=== PATIENT | male | born 1950 | race African-American/Black ===

== ENCOUNTER 2017-09-02 10:12 | Outpatient (CLI) | payer MEDICARE | END 2017-09-02 10:13 | disposition home or self-care (01) | LOC: BICMRI 10:12 | PROVIDERS: ATTEND Orthopaedic Surgery | DX: M25.511 Pain in right shoulder (principal); S43.401A Unspecified sprain of right shoulder joint, initial encounter; M67.813 Other specified disorders of tendon, right shoulder ==

== ENCOUNTER 2019-10-03 06:37 | Outpatient (CLI) | payer MEDICARE, OTHER ==
[2019-10-03 14:31] LABS: ALT (SGPT) 12 U/L (8-55); AST (SGOT) 23 U/L (5-34); Albumin 4.2 g/dL (3.4-4.8); Alkaline Phosphatase 75 U/L (40-110); Anion Gap 13 mmol/L (10-20); BUN (Urea Nitrogen) 17 mg/dL (8.4-25.7); Bilirubin, Total 0.5 mg/dL (0.2-1.2); Calc. Creatinine Clearance 0 mL/min (70-130); Calcium 9.1 mg/dL (7.8-10.44); Carbon Dioxide 24 mmol/L (23-31); Cardiac Risk 2.3 (Less than 4.5); Chloride 101 mmol/L (98-107); Cholesterol 117 mg/dl (< 200 Desired); Estimated GFR-MDRD 77; Globulin 2.8 g/dL (2.4-3.5); Glucose 92 mg/dL (80-115); HDL Cholesterol 52 mg/dL (>60 Neg Risk); LDL Cholesterol, Calculated 52 mg/dL; Sodium 134 mmol/L (136-145); Triglycerides 66 mg/dL (Less than 150)
[2019-10-03 14:42] LABS: Eosinophils 2 % (0-10); Hemoglobin 14.2 g/dL (14.0-18.0); Lymphocytes 15 % (21-51); MDiff Complete? YES; Mean Corpuscular HGB CONC 32.4 g/dL (32.0-36.0); Mean Corpuscular Hemoglobin 27.4 pg (27.0-31.0); Mean Corpuscular Volume 84.6 fL (78.0-98.0); Mean Platelet Volume 9.5 fL (7.4-10.4); Monocytes 4 % (0-10); Neutrophil 18 % (42-75); Platelet Count 136 thou/uL (130-400); Platelet Morphology Comment Appears Adequate; RBC Distribution Width 14.2 % (11.5-14.5); RBC Morphology Normal; Reactive Lymphocytes 61 % (0-10); Reflex for Review?? NO
[2019-10-04 14:12] LABS: SARS-CoV-2 MS2 Positive; SARS-CoV-2 N Gene Negative; SARS-CoV-2 S Gene Negative; SARS-CoV-2 orf1ab Negative
== END 2019-10-03 06:38 | disposition home or self-care (01) ==
LOC: LABBT 06:37
PROVIDERS: ATTEND Internal Medicine Cardiovascular Disease
DX: Z01.818 Encounter for other preprocedural examination (principal); Z11.59 Encounter for screening for other viral diseases
CPT/HCPCS: 80053; 80061; 85025; 93005; U0003; 87635; 93010

== ENCOUNTER 2019-12-19 08:41 | Outpatient (CLI) | payer MEDICARE ==
--- NOTE | 2019-12-19 10:50 | CT ---
EXAM: CT chest, abdomen, and pelvis with IV contrast: HISTORY: Chronic lymphocytic leukemia of B-cell type. COMPARISON: CT angiogram thorax and CT abdomen and pelvis on 11/11/2016 FINDINGS: CT THORAX: Lungs: Again noted are emphysematous changes within the upper lobes bilaterally greater on the right with prominent bullous emphysematous changes seen. Mild chronic lung changes are also seen with interstitial thickening in the upper lobes. There are dependent groundglass opacities seen likely due to dependent atelectasis. No discrete pulmonary nodule or mass is seen. Linear scarring is again seen in the right middle lobe. Pleura: No pleural effusion. Lymph nodes: Previously noted bilateral axillary lymphadenopathy as well as mediastinal and hilar lym phadenopathy seen on the prior exam has resolved. However, there are now enlarged lymph nodes seen within the left supraclavicular location and at the base the left neck. These lymph nodes are increas ed in number and enlarged. Largest lymph nodes measure 3.1 cm and 2.6 cm in short axis dimensions. There were mildly prominent lymph nodes in this region on the prior exam, but these lymph nodes are n ow enlarged and are greater in number compared to prior exam. Mediastinum: Calcified mediastinal lymph nodes are again seen. Prominent vascular calcifications are seen in the coronary arteries with vascular calcifications in the thoracic aorta. Chest wall: No abnormalities CT ABDOMEN AND PELVIS: Liver: Within normal limits. Gallbladder: Decompressed.\ Pancreas: Calcifications again seen in the region of the head and uncinate processes the pancreas whi ch are nonspecific but likely sequela of prior pancreatitis. Spleen: Within normal limits. Adrenal glands: Within normal limits. Kidneys: Within normal limits. Urinary Bladder: Incompletely distended. Reproductive organs: Within normal limits for patient's age. Bowel: Suggested thickening involving the ascending and proximal transverse colon, this is probably a ttributable to incomplete distention as opposed to actual colonic wall thickening. No adjacent pericolonic inflammatory changes are identified. There is suggested mild thickening of rugal folds wi thin the fundus and proximal body of the stomach. This could be related to incomplete distention. Adenopathy:There is a mild increase in number of aortocaval lymph nodes. There are several enlarged a ortocaval lymph nodes were present on the prior exam which is not present on this study. There is minimal stranding adjacent to the increased number of lymph nodes in a left periaortic location. Mild ly prominent lymph node is seen adjacent to the left adrenal gland and posterior to the splenic vein measuring 1 cm in short axis dimension. There enlarged and increased number of lymph nodes seen in the region of the trent hepatis and gastrohepatic ligament and adjacent to the stomach along are not visualized on this exam. A few scattered nonspecific lymph nodes are seen which are not enlarged by CT size criteria. Peritoneum: No free fluid or fluid collection is seen. No free intraperitoneal gas is identified. Vessels: Atherosclerotic calcifications and plaque in the abdominal aorta and iliac arteries as well as the origins of the mesenteric vessels and renal arteries. Previously noted eccentric thrombus within the infrarenal abdominal aorta has decreased. However, there is decreased enhancement and dens e vascular calcifications involving the right iliac arteries with occlusion of the right common iliac artery. Prominent dense vascular calcifications are also seen in the left iliac arteries. There is luminal narrowing with at least moderate narrowing involving the right common femoral artery proximally, but there is evidence of enhancement within the right external iliac and right common fem oral artery. Left common iliac artery stent is noted. Abdominal wall: No abnormalities seen. Osseous structures: Degenerative changes are seen in the visualized lower cervical spine as well as i nvolving the lower lumbar spine. There is trace grade 1 anterolisthesis of L4 on L5. Mild right convex scoliosis lumbar spine is present. IMPRESSION: 1. Lymphadenopathy at the base of the left neck and in a left supraclavicular location. These lymph n odes are increased in number and also increased in size with adjacent minimal stranding. 2. Resolution of mediastinal and axillary lymphadenopathy with resolution of the multiple enlarged ly mph nodes seen throughout the abdomen and pelvis including improvement in inguinal lymphadenopathy. Nonspecific mild increased number of lymph nodes are seen in an aortocaval region and greater in the left para-aortic location. 3. 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 4. Severe emphysematous changes. 5. Suggested thickening of the rugal folds and which is related to incomplete distention. Gastritis c annot be entirely excluded.
--- NOTE | 2019-12-19 11:20 | CT ---
CT NECK WITH CONTRAST: Date: 12/19/2019 Axial tomograms obtained with multiplanar reconstruction. INDICATION: Chronic lymphocytic leukemia. In remission. Now complains of left neck swelling. No comparison exams of neck. FINDINGS: Parotid glands are prominent, but are symmetric and show symmetric enhancement. Submandibular glands are symmetric. Review of thyroid reveals a low density nodule in the left lobe of the thyroid measuring approximatel y 1.0 cm. Review of the nasopharynx shows mild prominence of the pharyngeal tonsils. Base of tongue and oropharynx show prominence in the region of the lingual tonsils with central low a ttenuation suggesting pathologic enlargement. The palatine tonsils appear relatively symmetric. Hypopharynx and larynx appear unremarkable. Parapharyngeal space and retropharyngeal space unremarkable. Review of carotid space shows atherosclerotic calcification in both carotid bulbs. There is evidence of significant stenosis at the origin of the right internal carotid artery. The degree of stenosis ap pears to approach 50% diameter according to NASCET criteria. Review of lymph node levels show no significant Level I submandibular adenopathy. There is extensive Level II adenopathy in the left neck. There are numerous matted lymph nodes produc ing a large mass of adenopathy measuring up to 7.0 cm AP dimension. This mass is predominantly latera l to the vascular bundle and produces mass effect on the vascular bundle. It is medial to the sternoc leidomastoid muscle. This adenopathy extends inferior to Level III and Level IV with too numerous to count enlarged nodes throughout this region of the left neck. There are several pathologic nodes with central lucency cons istent with central necrosis. These pathologic necrotic nodes measure up to 2.0 cm with at least two seen at the level of the thyroid cartilage. There is a bilobed posterior necrotic node on the left wh ich measures up to 3.0 cm. Numerous enlarged lymph nodes extend into Level IV supraclavicular region. On the right side, nonspecific lymph nodes are seen at Level II. There is a 1.3 cm node at Level II o n the right in the jugulodigastric region, and there are several other IIa and IIb lymph nodes on the right measuring up to 1.0 cm. Nonspecific Level III and Level IV lymph nodes on the right measure up to 1.0 cm. Bone windows show prominent degenerative changes throughout the cervical spine with disc narrowing, h ypertrophic spurring, and posterior spondylosis. The paranasal sinuses are aerated and clear. Lung apices show chronic lung findings without focal mass. IMPRESSION: 1. Extensive pathologic adenopathy in the left neck beginning at Level II and extending inferior thr ough Level III and Level IV regions as described above. There are numerous lymph nodes with central n ecrosis as described above. 2. Nonspecific lymph nodes in the right neck as noted above. Biopsy is recommended to confirm diagnosis. Call was placed to Dr. Murillo at the time of dictation. CODE CR. POS: JESS
[2019-12-19] MEDS ORDERED: Iopamidol-370 76% 500 ML 1 ML ONE ×2 (13:30)
== END 2019-12-19 08:42 | disposition home or self-care (01) ==
LOC: BICCT 08:41
PROVIDERS: ATTEND Internal Medicine Hematology & Oncology
DX: C91.10 Chronic lymphocytic leukemia of B-cell type not having achieved remission (principal); R59.0 Localized enlarged lymph nodes; I74.5 Embolism and thrombosis of iliac artery
CPT/HCPCS: 70491; 71260; 74177

== ENCOUNTER 2020-01-22 15:31 | Observation (INO) | payer MEDICARE ==
--- NOTE | 2020-01-22 16:12 | CT ---
CT Brain WO Con History: Altered mental status Comparison: None. Findings: Abnormal enlargement of the left neck soft tissues as seen on recent neck CT, confluent rosas nopathy. Hypodensity along the left caudate head, anterior limb internal capsule as well as putamen is relatively well-defined and not definitively hyper acute. No acute hemorrhage. No midline shift or mass effect. Low-grade right deep white matter microvascular ischemic change. 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 Calvarium is intact. Calcification is noted along the right globe anterior chamber. Impression: 1. Mild microvascular ischemic changes with well-defined hypodensity of the left caudate body and put amen. If there is concern for acute infarction, MRI would be recommended although this is favored to be chronic. 2. Abnormal calcification of the right globe anterior chamber for which ophthalmologic evaluation is recommended. 3. Confluent left neck adenopathy.
--- NOTE | 2020-01-22 16:20 | RAD ---
XR Chest 1 View Portable History: Altered mental status Comparison: Radiograph 2017 Findings: The lungs are without confluent airspace consolidation, pneumothorax or effusion. Heart siz e is similar. No acute osseous abnormality. Abnormal fullness of the left neck soft tissues. Impression: No acute intrathoracic abnormality.
[2020-01-22 16:39] LABS: Hemoglobin 14.1 g/dL (14.0-18.0); Mean Corpuscular HGB CONC 34.7 g/dL (32.0-36.0); Mean Corpuscular Hemoglobin 29.5 pg (27.0-31.0); Mean Corpuscular Volume 85.1 fL (78.0-98.0); Mean Platelet Volume 8.7 fL (7.4-10.4); Platelet Count 169 thou/uL (130-400); RBC Distribution Width 12.9 % (11.5-14.5); Red Blood Cell (RBC) Count 4.78 mill/uL (4.70-6.10); White Blood Cell (WBC) Count 8.9 thou/uL (4.8-10.8)
[2020-01-22 16:58] LABS: Band 6 % (5-11); Eosinophils 3 % (0-10); Lymphocytes 11 % (21-51); MDiff Complete? YES; Monocytes 15 % (0-10); Neutrophil 55 % (42-75); Platelet Morphology Comment Appears Adequate; RBC Morphology Normal; Reactive Lymphocytes 10 % (0-10)
[2020-01-22 17:02] LABS: ALT (SGPT) 10 U/L (8-55); AST (SGOT) 17 U/L (5-34); Albumin 4.1 g/dL (3.4-4.8); Alkaline Phosphatase 122 U/L (40-110); Anion Gap 15 mmol/L (10-20); BUN (Urea Nitrogen) 11 mg/dL (8.4-25.7); Bilirubin, Total 0.9 mg/dL (0.2-1.2); Calc. Creatinine Clearance 0 mL/min (70-130); Calcium 9.3 mg/dL (7.8-10.44); Carbon Dioxide 23 mmol/L (23-31); Chloride 98 mmol/L (98-107); Estimated GFR-MDRD Greater than 90; Glucose 104 mg/dL (83-110); Protein, Total 7.1 g/dL (5.8-8.1); Sodium 132 mmol/L (136-145)
[2020-01-22] MEDS ORDERED: HYDROcodone/Acetaminophen 5/325 mg Tablet ONE (17:56)
[2020-01-22] MEDS ORDERED: Labetalol HCl 100 MG/20 ML VIAL ONE (18:59)
[2020-01-22] MEDS ORDERED: Fluorescein Opthalmic Strip ONE (19:04)
[2020-01-22] MEDS ORDERED: Proparacaine 0.5% Opth 15 ML BOT ONE (19:08)
[2020-01-22] MEDS ORDERED: Labetalol HCl 100 MG/20 ML VIAL SLOW IVP PRN (20:24)
[2020-01-22] MEDS ORDERED: methylPREDNISolone Sod Succ 40 MG VIAL IVP SCH (20:30)
[2020-01-22] MEDS ORDERED: methylPREDNISolone Sod Succ 1,000 MG in Sodium Chloride 0.9% 250 ML 250 ML IVPB SCH (20:45)
[2020-01-22] MEDS ORDERED: Atorvastatin Calcium 40 MG TAB PO SCH (21:00)
--- NOTE | 2020-01-22 21:59 | PDOC.HHP ---
Hospitalist HPI - History of Present Illness Blurry vision History of Present Illness: Mr. 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 Patient reports that approximately 3 days prior to admission he developed left eye pain and approximately an hour later noticed blurry vision and sensitivity to light. Patient was waiting to see if his vision improved, but it has stayed the same over the past 3 days. His pain is associated with a headache over the left temporal region which he describes as 9 out of 10. He al so reports significant tearing to his left eye, denies any purulent drainage. He denies any history of glaucoma or other eye problems in the left eye. He denies any nausea, vomiting. He denies any posterior neck pain. He denies fever, night sweats, chills. He reports that he recently had a lymph node biopsy of his large left neck mass and was told he has lymphoma. He has not yet started chemotherapy but has plans to. He denies any chest pain, shortness of breath, abdominal pain. Denies any numbness, weakness, paresthesias. In emergency room initial vital signs 209/95, 126, 72, 25, 98.0, 99% on room air. H/H 14.1/40.7. BUN/CR 11/0.88. Initial troponin 0 0.013. EKG with no ischemic changes. CT brain showed a hypodensity along the left caudate have an anterior limb internal capsule as well as the 2 men, but no acute hemorrhage, no midline shift, no mass-effect. Also showed abnormal calcification of the right globe anterior chamber and confluent left neck adenopathy. Chest x-ray with no acute intrathoracic abnormality. Patient is allergic to aspirin, so did not receive aspirin in the emergency room. Hospitalist ROS - Review of Systems Constitutional: denies: fever, chills, sweats, weakness, malaise, other Eyes: reports: pain, vision change, conjunctivae inflammation, redness. denies: eyelid inflammation, other ENT: reports: other (Left temporal headache). denies: ear pain, ear discharge, nose pain, nose discharge, nose congestion, mouth pain, mouth swelling, throat pain, throat swelling Respiratory: denies: cough, dry, shortness of breath, hemoptysis, SOB with excertion, pleuritic pain, sputum, wheezing, other Cardiovascular: denies: chest pain, palpitations, orthopnea, paroxysmal noc. dyspnea, edema, light headedness, other Gastrointestinal: denies: nausea, vomiting, abdominal pain, diarrhea, constipation, melena, hematochezia, other Genitourinary: denies: dysuria, frequency, incontinence, hematuria, retention, other Musculoskeletal: denies: neck pain, shoulder pain, arm pain, back pain, hand pain, leg pain, foot pain, other Neurological: denies: weakness, numbness, incoordination, change in speech, confusion, seizures, other - Medication Medications: Home medications include Pantoprazole Plavix Atorvastatin Losartan Allergy to aspirin Hospitalist History - Past Medical History Other Medical History: Past medical history of Hypertension Hyperlipidemia Lymphoma 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 Coronary artery disease status post stents - Past Surgical History Other Surgical History: Past surgical history includes Multiple right eye surgeries Bladder repair Peripheral vascular stents in legs Cardiac stents Neck mass biopsy - Family History Other Family History: Denies any pertinent family history - Social History Smoking Status: Current every day smoker Tobacco Type: cigarettes Alcohol: reports: None Drugs: reports: none Living Situation: Alone Activity level: independent ambulation - Exam General Appearance: NAD, awake alert Eye: anicteric sclera (Multiple attempts with Nelson-Pen, not able to measure IOP.) Eye - other findings: Left eye with conjunctival injection, tearing, EOM intact, PRRL ENT - other findings: Slit-lamp exam with fluorescein stain uptake to conju nctiva Neck - other findings: Large left neck mass Heart: RRR, no murmur, no gallops, no rubs, normal peripheral pulses Respiratory: CTAB, no wheezes, no rales, no ronchi, normal chest expansion, no tachypnea, normal percussion Gastrointestinal: soft, non-tender, non-distended, normal bowel sounds, no palpable masses, no hepatomegaly, no splenomegaly, no bruit Extremities: no cyanosis, no clubbing, no edema Skin: normal turgor, no lesions, no rashes Neurological: cranial nerve grossly intact, normal sensation to touch, no weakness, no focal deficits, no new deficit Musculoskeletal: normal tone, normal strength, no muscle wasting Psychiatric: normal affect, normal behavior, A&O x 3 Hospitalist Results - Labs Result Diagrams: 01/22/20 16:23 01/22/20 16:23 Lab results: WBC 8.9 thou/uL (4.8-10.8) 01/22/20 16:23 Hgb 14.1 g/dL (14.0-18.0) 01/22/20 16:23 Hct 40.7 % (42.0-52.0) L 01/22/20 16:23 MCV 85.1 fL (78.0-98.0) 01/22/20 16:23 Plt Count 169 thou/uL (130-400) 01/22/20 16:23 Band Neuts % (Manual) 6 % (5-11) 01/22/20 16:23 ESR Westergren 28 mm/hr (Less than 20) H 01/22/20 16:23 Sodium 132 mmol/L (136-145) L 01/22/20 16:23 Potassium 4.0 mmol/L (3.5-5.1) 01/22/20 16:23 Chloride 98 mmol/L (98-107) 01/22/20 16:23 Carbon Dioxide 23 mmol/L (23-31) 01/22/20 16:23 BUN 11 mg/dL (8.4-25.7) 01/22/20 16:23 Creatinine 0.88 mg/dL (0.7-1.3) 01/22/20 16:23 Glucose 104 mg/dL (83-110) 01/22/20 16:23 Calcium 9.3 mg/dL (7.8-10.44) 01/22/20 16:23 Total Bilirubin 0.9 mg/dL (0.2-1.2) 01/22/20 16:23 AST 17 U/L (5-34) 01/22/20 16:23 ALT 10 U/L (8-55) 01/22/20 16:23 Alkaline Phosphatase 122 U/L (40-110) H 01/22/20 16:23 Troponin I 0.013 ng/mL (< 0.028) 01/22/20 16:23 C-Reactive Protein Less than 0.50 mg/dL (= or < 0.5) 01/22/20 16:23 Serum Total Protein 7.1 g/dL (5.8-8.1) 01/22/20 16:23 Albumin 4.1 g/dL (3.4-4.8) 01/22/20 16:23 Hospitalist H&P A/P - Plan Plan: 70-year-old male with past medical history of legal parental blindness in right eye secondary to childhood trauma, hypertension, hyperlipidemia, peripheral vascular disease, coronary artery disease with stents, newly diagnosed lymphoma, tobacco dependence presents with 3 days of acute onset pain and vision loss to the left eye associated with left temporal headache. Left eye pain and vision loss 3-day history of significant 8 out of 10 left eye pain and blurred vision associated with left temporal headache. Left eye is injected and inflamed. Fluorescein stain showed scarring of conjunctiva, but no uptake of the cornea. Pupils reactive to light. No obvious visual field cuts from confrontation. No obvious signs of glaucoma. I did attempt to use a Nelson-Pen to measure the p atient's IOP. After several attempts however unable to obtain accurate reading. No obvious abnormalities on funduscopic exam. Differential is broad, but given patient's associated left temporal headache and history of significant peripheral vascular disease and smoking history high suspicion for temporal arteritis. I discussed the case with folder and notcher Dr. Espino who agreed with systemic steroid treatment, and will see the patient urgently in the morning for further evaluation. Dr. Espino recommended holding off on antibiotic drops at this time. CT brain did show a hypodensity in the caudate and putamen, however suspect these are not related to patient's eye pain and vision loss. CT did not show any evidence of orbital cellulitis, but did show known chronic changes to right globe. Plan Urgent ophthalmology consult IV methylprednisolone 1 g for 3 days for suspected temporal arteritis ESR, CRP q4hr neurochecks Hypodensity on CT Scan Hypodensity noted to the caudate nucleus and putamen on CT brain. Suspect these are unrelated to patient's vision loss, however will admit for CVA rule out. Will obtain MRI of the brain. Patient did not state receive aspirin due to an allergy, but is on Plavix which we will continue. We will also continue patient on home statin. As well as place neurology consult. Plan MRI brain Continue plavix, statin Neurology consult q4hr neuro checks Permissive hypertension Hypertensive urgency versus emergency Patient hypertensive to 210 systolic upon admission to the ED. Patient received 10 mg of IV labetalol in the ED. We will continue to monitor blood pressures closely and put as needed medications for elevated BPs. Allowing for permissive hypertension in setting of suspected CVA. Plan As needed labetalol Closely monitor blood pressures We will hold home antihypertensive at this time Lymphoma Patient recently diagnosed with lymphoma by left neck mass biopsy. Patient not currently on chemotherapy but with plans to start. Plan Oncology consult, recommendations appreciated GERD Continue home pantoprazole. DVT prophylaxisLovenox Full code Case discussed with attending physician Dr. Monroe who also saw and evaluated the patient and is in agreement with assessment and plan. Case also discussed with folder and notcher Dr. Snyder who will see the patient urgently in the morning.
[2020-01-23 05:06] LABS: Cardiac Risk 4.1 (Less than 4.5)
[2020-01-23] MEDS ORDERED: Clopidogrel Bisulfate 75 MG TAB ONE (08:51)
[2020-01-23] MEDS ORDERED: Clopidogrel Bisulfate 75 MG TAB PO SCH (09:00)
--- NOTE | 2020-01-23 11:31 | PDOC.HOSPP ---
- Subjective Encounter Date: 01/23/20 Encounter Time: 11:29 Subjective: Mr. Collazo was seen today in follow-up of sudden vision loss in the left eye. He says it is bit better today. He says the pain has improved. - Objective Result Diagrams: 01/22/20 16:23 01/22/20 16:23 Hospitalist ROS - Medication Medications: Active Medications Generic Name Dose Route Start Last Admin Trade Name Freq PRN Reason Stop Dose Admin Atorvastatin Calcium 40 mg 01/22/20 21:00 01/22/20 21:29 Atorvastatin Calcium 40 Mg Tab PO 40 mg HS BERNA Administration Clopidogrel Bisulfate 75 mg 01/23/20 09:00 01/23/20 09:00 Clopidogrel Bisulfate 75 Mg Tab PO 75 mg DAILY BERNA Administration - Exam Eye: PERRL, anicteric sclera Neck - other findings: + massive adenopathy in the left submandibular area Heart: RRR, no murmur, no gallops, no rubs, normal peripheral pulses Respiratory: CTAB, no wheezes, no rales, no ronchi, normal chest expansion Gastrointestinal: soft, non-tender, non-distended, normal bowel sounds Extremities: no cyanosis, no edema Hosp A/P (1) Sudden visual loss, left eye Code(s): H53.132 - SUDDEN VISUAL LOSS, LEFT EYE Status: Acute (2) CML (chronic myelocytic leukemia) Code(s): C92.10 - CHRONIC MYELOID LEUK, BCR/ABL-POSITIVE, NOT ACHIEVE REMIS Status: Chronic (3) Peripheral vascular disease Code(s): I73.9 - PERIPHERAL VASCULAR DISEASE, UNSPECIFIED Status: Chronic - Plan * Sudden vision loss left eye- he seems to be responding to steroids * He has been seen by Dr. Snyder who recommends he come to his office today for more extensive evaluation * Abnormal CT scan of the brain- discussed with Dr. Jc- this is an old Stroke, and not affecting his current complaint. * Will continue aspirin and consider adding a statin * Will follow-up with the MRI, and if no new significant change will discharge this afternoon on Steroids, so that he can see Dr. Snyder.
--- NOTE | 2020-01-23 11:43 | MRI ---
MRI BRAIN NONCONTRAST: DATE: 01/23/2020 HISTORY: 70-year-old male with TIA. Lesion in left basal ganglia on CT of 01/22/2020. COMPARISON: CT of 01/22/2020. No prior MRIs. FINDINGS: There is an approximately 0.7 x 1.6 cm triangular lesion with heterogeneously hyperintense signal on T2 WI and FLAIR, involving a portion of the head of the left caudate nucleus, and adjacent portion of anterior limb of left internal capsule and anterior portion of left basal ganglia, more specifical ly the putamen. It has a small hemosiderin stain, indicating that it was associated with prior hemorrhage. Unfortunately, the study was ordered without contrast (contrast would be necessary if the re is clinical concern for infection or metastasis). However, given its appearance and lack of mass effect, this is favored to represent a focus of gliosis and encephalomalacia from an old insult. There are mild chronic ischemic white matter changes of the cerebrum. There is a second punctate focus of hemosiderin stain in the left frontal deep cerebral white matter located approximately 1 cm anterior to the left frontal horn representing another tiny focus of prior hemorrhage. The ventricles are normal in size and configuration. There is diffuse age-appropriate brain parenchymal volume loss. No restricted diffusion to indicate any acute infarction. No acute hemorrhage, mass effect, midline shift, or extra-axial fluid collection. There is T2 and FLAIR hyperintensity completely filling the left mastoid antrum, and many of the bila teral mastoid air cells, left greater than right. IMPRESSION: 1) no acute infarction or any other acute findings. 2) small lesion in left corpus striatum is most consistent with an old infarction with hemorrhagic co nversion or old primary hemorrhage. 3) incidental finding of left mastoid effusion.
--- NOTE | 2020-01-23 12:44 | CON ---
NEUROLOGY CONSULTATION DATE OF CONSULTATION: 01/23/2020 REASON FOR CONSULTATION: Acute vision loss in the left eye. HISTORY OF PRESENT ILLNESS: Mr. 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 Per patient, approximately 3 days prior to admission, he developed left eye pain, and an hour later, he noticed blurred vision with sensitivity to light. The patient waited at home for the vision to improve, but it did not. It was associated with left temporal headache at 9/10 and significant tearing in the left eye with no discharge. He decided to come to the emergency room for further evaluation. The patient denies any eye problems before. He denies nausea, vomiting, chest pain, abdominal pain, focal numbness, or focal paresthesias associated with the left eye blindness. He had a large lymph node in the left leg, for which he has been followed by the Oncology. In the emergency room, his blood pressure was 209/95, pulse 126, respiratory rate 18. Head CT was done, which showed old hypodensity in the left caudate, but no acute hemorrhage. The patient is allergic to aspirin, so he did not receive aspirin. Ophthalmology was consulted and he was given a dose of high-dose steroid. REVIEW OF SYSTEMS: Constitutional: denies: fever, chills, sweats, weakness, malaise, other Eyes: reports: pain, vision change, conjunctivae inflammation, redness. denies: eyelid inflammation, other ENT: reports: other (Left temporal headache). denies: ear pain, ear discharge, nose pain, nose discharge, nose congestion, mouth pain, mouth swelling, throat pain, throat swelling Respiratory: denies: cough, dry, shortness of breath, hemoptysis, SOB with excertion, pleuritic pain, sputum, wheezing, other Cardiovascular: denies: chest pain, palpitations, orthopnea, paroxysmal noc. dyspnea, edema, light headedness, other Gastrointestinal: denies: nausea, vomiting, abdominal pain, diarrhea, constipation, melena, hematochezia, other Genitourinary: denies: dysuria, frequency, incontinence, hematuria, retention, other Musculoskeletal: denies: neck pain, shoulder pain, arm pain, back pain, hand pain, leg pain, foot pain, other Neurological: denies: weakness, numbness, incoordination, change in speech, confusion, seizures, other HOME MEDICATIONS: 1. Pantoprazole. 2. Plavix. 3. Atorvastatin. 4. Losartan. ALLERGIES: ASPIRIN. PAST MEDICAL HISTORY: Hypertension, hyperlipidemia, lymphoma, legally blind in right eye due to childhood trauma, coronary artery disease status post stents. PAST SURGICAL HISTORY: Multiple right eye surgeries, bladder repair, peripheral vascular stents in the leg, cardiac stents, neck mass biopsy. FAMILY HISTORY: No history of stroke. SOCIAL HISTORY: The patient is a smoker. Denies alcohol or illegal drug abuse. He lives alone. PHYSICAL EXAMINATION: General Appearance: NAD, awake alert Eye: anicteric sclera (Multiple attempts with Nelson-Pen, not able to measure IOP.) Eye - other findings: Left eye with conjunctival injection, tearing, EOM intact, PRRL ENT - other findings: Slit-lamp exam with fluorescein stain uptake to conjunctiva Neck - other findings: Large left neck mass Heart: RRR, no murmur, no gallops, no rubs, normal peripheral pulses Respiratory: CTAB, no wheezes, no rales, no ronchi, normal chest expansion, no tachypnea, normal percussion Gastrointestinal: soft, non-tender, non-distended, normal bowel sounds, no palpable masses, no hepatomegaly, no splenomegaly, no bruit Extremities: no cyanosis, no clubbing, no edema Skin: normal turgor, no lesions, no rashes Neurological: Mental status; the patient is alert and oriented to person, place, and time. Speech is clear. Fund of knowledge is appropriate. Cranial nerves 3 to 12 are intact, 2 OD legally blind and OS 20/50, vision improved since arrival to the emergency room. Motor, muscle tone and bulk are normal. Moving all 4 extremities equally and symmetrically. Strength 5/5 bilaterally. Sensory intact. Cerebellar, finger-nose testing intact. Gait deferred due to the patient's safety reason. DATA REVIEWED: Significant for hyponatremia of 132. Rests are essentially unremarkable. Head CT reviewed, old stroke but no acute intracranial pathology. Lab results: WBC 8.9 thou/uL (4.8-10.8) 01/22/20 16:23 Hgb 14.1 g/dL (14.0-18.0) 01/22/20 16:23 Hct 40.7 % (42.0-52.0) L 01/22/20 16:23 MCV 85.1 fL (78.0-98.0) 01/22/20 16:23 Plt Count 169 thou/uL (130-400) 01/22/20 16:23 Band Neuts % (Manual) 6 % (5-11) 01/22/20 16:23 ESR Westergren 28 mm/hr (Less than 20) H 01/22/20 16:23 Sodium 132 mmol/L (136-145) L 01/22/20 16:23 Potassium 4.0 mmol/L (3.5-5.1) 01/22/20 16:23 Chloride 98 mmol/L (98-107) 01/22/20 16:23 Carbon Dioxide 23 mmol/L (23-31) 01/22/20 16:23 BUN 11 mg/dL (8.4-25.7) 01/22/20 16:23 Creatinine 0.88 mg/dL (0.7-1.3) 01/22/20 16:23 Glucose 104 mg/dL (83-110) 01/22/20 16:23 Calcium 9.3 mg/dL (7.8-10.44) 01/22/20 16:23 Total Bilirubin 0.9 mg/dL (0.2-1.2) 01/22/20 16:23 AST 17 U/L (5-34) 01/22/20 16:23 ALT 10 U/L (8-55) 01/22/20 16:23 Alkaline Phosphatase 122 U/L (40-110) H 01/22/20 16:23 Troponin I 0.013 ng/mL (< 0.028) 01/22/20 16:23 C-Reactive Protein Less than 0.50 mg/dL (= or < 0.5) 01/22/20 16:23 Serum Total Protein 7.1 g/dL (5.8-8.1) 01/22/20 16:23 Albumin 4.1 g/dL (3.4-4.8) 01/22/20 16:23 ASSESSMENT AND PLAN: (1) Sudden visual loss, left eye Code(s): H53.132 - SUDDEN VISUAL LOSS, LEFT EYE Status: Acute (2) CML (chronic myelocytic leukemia) Code(s): C92.10 - CHRONIC MYELOID LEUK, BCR/ABL-POSITIVE, NOT ACHIEVE REMIS Status: Chronic (3) Peripheral vascular disease Code(s): I73.9 - PERIPHERAL VASCULAR DISEASE, UNSPECIFIED Status: Chronic Mr. Chevy Cornejo is a 70-year-old male with medical history significant for right eye blindness, hypertension, hyperlipidemia, peripheral vascular disease, coronary artery disease with stents, and tobacco abuse, presented with 3-day history of acute onset pain and visual loss associated with left temporal headache, concern about left temporal arteritis. Ophthalmology consulted. Continue high-dose steroids per Ophthalmology recommendation. Ophthalmology has been consulted and advised outpatient Ophthalmology followup. The patient will follow up with Dr. Snyder as outpatient. Today, MRI of the brain reviewed, which was negative for acute intracranial pathology. The patient does have old stroke, so continue Plavix and statin for secondary stroke prevention. Continue medical treatment per Primary Team. Strict control of blood pressure and blood glucose. No further recommendations from Neurology perspective. Continue medical management per primary team and Ophthalmology. Plan discussed in detail with Dr. Ratliff, who is the primary attending. Thank you for the consult. Job ID: [id number] [id number]
[2020-01-23 14:04] LABS: SARS-CoV-2 MS2 Positive; SARS-CoV-2 N Gene Negative; SARS-CoV-2 S Gene Negative; SARS-CoV-2 by NAA Not Detected (NotDetected); SARS-CoV-2 orf1ab Negative
[2020-01-23] MEDS ORDERED: methylPREDNISolone Sod Succ/PF 125 MG/2 ML VIAL ONE (14:21)
--- NOTE | 2020-01-23 14:26 | PDOC.MOPN ---
Interval History: patient stopped Ibrance 1 week ago, due to start IV chemo at that time but having issues with insurance. He was given IV steroids with improvement of vision. - Physical Exam General: Alert HEENT: Other (LAD left neck) Lungs: Clear to auscultation, Normal air movement Cardiovascular: Regular rate Abdomen: Normal bowel sounds Neurological: Normal speech - Labs Result Diagrams: 01/22/20 16:23 01/22/20 16:23 Lab results: Laboratory Results - last 24 hr 01/23/20 04:20: Triglycerides 92, Cholesterol 139, LDL Cholesterol, Calc 87, HDL Cholesterol 34, Heart Disease Risk Ratio 4.1 01/22/20 20:45: SARS-CoV-2 (PCR) Not Detected 01/22/20 16:23: ESR Westergren 28 H 01/22/20 16:23: C-Reactive Protein Less than 0.50 01/22/20 16:23: Troponin I 0.013 01/22/20 16:23: WBC 8.9, RBC 4.78, Hgb 14.1, Hct 40.7 L, MCV 85.1, MCH 29.5, MCHC 34.7, RDW 12.9, Plt Count 169, MPV 8.7, Neutrophils % (Manual) 55, Band Neuts % (Manual) 6, Lymphocytes % (Manual) 11 L, Reactive Lymphs % 10, Monocytes % (Manual) 15 H, Eosinophils % (Manual) 3, Lymphocytes # Not Reportable, Plt Morphology Comment Appears Adequate, RBC Morph Comment Normal 01/22/20 16:23: Sodium 132 L, Potassium 4.0, Chloride 98, Carbon Dioxide 23, Anion Gap 15, BUN 11, Creatinine 0.88, Estimated GFR (MDRD) Greater than 90, Glucose 104, Calcium 9.3, Total Bilirubin 0.9, AST 17, ALT 10, Alkaline Phosphatase 122 H, Serum Total Protein 7.1, Albumin 4.1, Globulin 3.0, Albumin/Globulin Ratio 1.4 Status: lab reviewed by me A/P - Problem (1) CLL (chronic lymphocytic leukemia) Current Visit: Yes Code(s): C91.10 - CHRONIC LYMPHOCYTIC LEUK OF B-CELL TYPE NOT ACHIEVE REMIS Status: Acute (2) Sudden visual loss, left eye Current Visit: Yes Code(s): H53.132 - SUDDEN VISUAL LOSS, LEFT EYE Status: Acute - Plan Plan: 1. Patient is being discharged to go to Dr. Espino's office for eye exam. blurred vision left eye may be from Ibrance. 2. Patient missed his mediport consultation and has to be rescheduled prior to initiation of R-CHOP chemotherapy 3. Needs echo prior to starting Adriamycin 4. Await financial assistance with medications as patient is unable to afford his copay. 5. patient will come to office tomorrow to see our briefcase sewer and get new appointment for mediport consultation. 6. Hopefully, IV chemo will start in the next week.
[2020-01-24] MEDS ORDERED: methylPREDNISolone Sod Succ/PF 125 MG/2 ML VIAL IVP ONE (11:39)
--- NOTE | 2020-01-25 03:47 | DIS ---
DATE OF ADMISSION: 01/22/2020 DATE OF DISCHARGE: 01/23/2020 DISCHARGE DISPOSITION: Home. DISCHARGE DIAGNOSES: 1. Sudden loss of vision in the left eye. 2. History of lymphoma. 3. Hypertension. 4. Hyperlipidemia. DISCHARGE MEDICATIONS: The patient was discharged on: 1. Prednisone 60 mg p.o. daily. 2. Aspirin 81 mg daily. 3. Continue Timoptic 0.5% in the left eye. 4. Protonix 40 mg daily. 5. [place] 5/325 q.6h as needed. 6. Atorvastatin 20 mg daily. 7. Imbruvica 140 mg three tablets daily. 8. Losartan 25 mg daily. 9. Plavix 75 mg p.o. daily. PROCEDURES DONE DURING THE HOSPITAL STAY: The patient had a CT scan of the brain, which showed mild microvascular change. There was a well-defined hypodensity in the left caudate and abnormal calcifications of the right globe. MRI of the brain showed age-appropriate volume loss as well as a left mastoid effusion. CONSULTANTS DURING THE HOSPITAL STAY: He was seen by Neurology as well as Ophthalmology. HOSPITAL COURSE: Mr. Cornejo is a pleasant 70-year-old gentleman, who presented to the emergency room with complaints of sudden loss in vision in the left eye. The full details of which are outlined in the history and physical. He also noted some pain in the eye and redness as well and some headache. An attempt at obtaining his ocular pressure in the ER was unsuccessful; however, he was seen by Ophthalmology the following morning. Due to concerns for possible temporal arteritis or other conditions such as uveitis or iritis, he was placed on high-dose steroids. Sedimentation rate was obtained, which was slightly elevated at 28. He was seen by Dr. Snyder and was told to follow up in his office the same day. An urgent MRI of the brain was done, which was negative for any significant change. The neurologist money order clerk also felt that urgent ophthalmology evaluation would be the best course and as such, he was able to be discharged home to follow up with Dr. Snyder, the same day. Job ID: [id number]
== END 2020-01-23 14:35 | disposition home or self-care (01) ==
LOC: ERS 15:31 → ERHOLD 18:11
PROVIDERS: ADMIT Internal Medicine; ATTEND Internal Medicine
DX: H53.132 Sudden visual loss, left eye (principal); C91.10 Chronic lymphocytic leukemia of B-cell type not having achieved remission; I10 Essential (primary) hypertension; E78.5 Hyperlipidemia, unspecified; H74.8X2 Other specified disorders of left middle ear and mastoid; I73.9 Peripheral vascular disease, unspecified; H54.8 Legal blindness, as defined in USA; I25.10 Atherosclerotic heart disease of native coronary artery without angina pectoris; F17.210 Nicotine dependence, cigarettes, uncomplicated; K21.9 Gastro-esophageal reflux disease without esophagitis; Z79.02 Long term (current) use of antithrombotics/antiplatelets; Z79.899 Other long term (current) drug therapy; Z88.6 Allergy status to analgesic agent; Z95.5 Presence of coronary angioplasty implant and graft; Z20.828 Contact with and (suspected) exposure to other viral communicable diseases
CPT/HCPCS: 70450; 70551; 71045; 80053; 80061; 84484; 85025; 85652; 86140; 93005; 96374; 96375; 99284; G0378 ×2; U0003; 36415; 87635; J2930; J7050

== ENCOUNTER 2020-01-27 19:43 | Inpatient (IN) | payer MEDICARE ==
[2020-01-27 21:51] LABS: Hemoglobin 14.7 g/dL (14.0-18.0); Lymphocytes 40 % (21-51); MDiff Complete? YES; Mean Corpuscular Hemoglobin 28.4 pg (27.0-31.0); Mean Corpuscular Volume 85.9 fL (78.0-98.0); Mean Platelet Volume 7.8 fL (7.4-10.4); Monocytes 5 % (0-10); Neutrophil 43 % (42-75); Platelet Count 253 thou/uL (130-400); Platelet Morphology Comment Appears Adequate; RBC Distribution Width 12.9 % (11.5-14.5); Reactive Lymphocytes 12 % (0-10); White Blood Cell (WBC) Count 12.2 thou/uL (4.8-10.8)
[2020-01-27] MEDS ORDERED: diphenhydrAMINE 12.5 MG/5 ML UDCUP ONE (21:51)
[2020-01-27] MEDS ORDERED: Acetaminophen 500 MG TAB ONE (21:51)
[2020-01-27] MEDS ORDERED: Morphine 4 MG/ML VIAL ONE (21:51)
[2020-01-27] MEDS ORDERED: Metoclopramide HCl 10 MG/2 ML VIAL ONE (21:51)
[2020-01-27] MEDS ORDERED: diphenhydrAMINE 25 MG CAP ONE (21:52)
--- NOTE | 2020-01-27 22:03 | CT ---
EXAM: CT brain without contrast HISTORY: Headache. Known neck cancer COMPARISON: 01/22/2020 TECHNIQUE: Multiple contiguous axial images were obtained and a CT of the brain without contrast. FINDINGS: There are scattered hypodensities in the subcortical and periventricular white matter consi stent with small vessel ischemic disease. Intracranial vascular calcifications are present. There is no evidence of hydrocephalus, intracranial hemorrhage, or extra-axial fluid collection. There is a large mass below the left ear. There is stable partial opacification the left mastoid air cells. The visualized paranasal sinuses and right mastoid air cells are well aerated. IMPRESSION: 1. No evidence of acute intracranial abnormality 2. Stable large left neck mass
[2020-01-27 22:11] LABS: ALT (SGPT) 17 U/L (8-55); AST (SGOT) 17 U/L (5-34); Albumin 4.4 g/dL (3.4-4.8); Alkaline Phosphatase 119 U/L (40-110); Anion Gap 16 mmol/L (10-20); BUN (Urea Nitrogen) 14 mg/dL (8.4-25.7); Bilirubin, Total 0.7 mg/dL (0.2-1.2); Calc. Creatinine Clearance 0 mL/min (70-130); Calcium 9.8 mg/dL (7.8-10.44); Carbon Dioxide 26 mmol/L (23-31); Chloride 96 mmol/L (98-107); Estimated GFR-MDRD 83; Globulin 3.5 g/dL (2.4-3.5); Glucose 122 mg/dL (83-110); Protein, Total 7.9 g/dL (5.8-8.1); Sodium 134 mmol/L (136-145)
[2020-01-27] MEDS ORDERED: diphenhydrAMINE 50 MG/ML VIAL ONE (22:43)
[2020-01-27] MEDS ORDERED: Labetalol HCl 100 MG/20 ML VIAL ONE (23:16)
[2020-01-27] MEDS ORDERED: Labetalol HCl 100 MG/20 ML VIAL SLOW IVP PRN (23:38)
[2020-01-28] MEDS ORDERED: Labetalol HCl 100 MG/20 ML VIAL ONE ×2 (00:21→11:49)
--- NOTE | 2020-01-28 00:27 | PDOC.BPN ---
- Brief Progress Note Encounter Date: 01/27/20 [id number] dictated
[2020-01-28 00:53] LABS: Troponin I 0.027 ng/mL (< 0.028)
[2020-01-28] MEDS ORDERED: niCARdipine 25 MG in Sodium Chloride 0.9% 250 ML 240 ML IVPB SCH ×2 (02:15→03:16)
--- NOTE | 2020-01-28 04:10 | HP ---
CHIEF COMPLAINT: Headache. HISTORY OF PRESENT ILLNESS: Mr. Cornejo is a 70-year-old male with past medical history of lymphoma with left neck mass, blindness, GI bleeding. The patient currently on chemotherapy, presents to the emergency room for headache that has been going on for over a week. The patient was discharged 4 days ago from the hospital with the same complaint of left eye vision changes and left-sided headaches. The patient also has left-sided neck pain. The patient had an MRI of the brain and was unremarkable several days ago. The patient was seen by Ophthalmology for the left eye vision changes. The patient has a large left-sided neck mass, for which he is being cared for by Dr. Murillo, oncologist. He has lymphoma. He has chronic hypertension. Workup in the emergency room, the patient was hypertensive with a systolic blood pressure of more than 240. The patient was given IV labetalol. Still monitoring the blood pressure. If blood pressure remains elevated, we will start the patient on IV Cardene drip. Denies fever or chills. The patient is being admitted to hospital for further management. PAST MEDICAL HISTORY: As mentioned above in history of present illness. PAST SURGICAL HISTORY: 1. Right eye surgeries. 2. Ruptured bladder repair. 3. Two stents in the leg. 4. Two stents in the heart. 5. Biopsy of neck mass. SOCIAL HISTORY: Denies alcohol use. He is a former drug user, abuse marijuana. Currently he uses tobacco, smokes cigarettes. He smokes half pack per day. Lives at home alone. HOME MEDICATIONS: Please see home medication reconciliation form for updated medications. ALLERGIES: ALLERGIC TO ASPIRIN. REVIEW OF SYSTEMS: Review of 14 systems negative except what is mentioned in history of present illness. PHYSICAL EXAMINATION: GENERAL: The patient is awake, alert, in moderate distress. VITAL SIGNS: Blood pressure is 198/86, pulse is 77, respiratory rate is 16, oxygen saturation is 95% on room air. HEENT: Head is normocephalic and atraumatic. Right cornea is completely opacified. NECK: Supple. Large neck mass, tender. CHEST: Fair bilateral air entry. HEART: S1, S2. Regular. ABDOMEN: Soft, nontender. Bowel sounds present. NEUROLOGIC: Awake, alert, moving extremities. PSYCH: Unable to assess. EXTREMITIES: No clubbing or cyanosis. LABORATORY DATA: Reviewed. Sodium is 134, glucose is 122. CT of the brain, no evidence of acute intracranial abnormality, stable large left neck mass. CBC showed WBC count of 12.2. ASSESSMENT AND PLAN: 1. Hypertensive emergency. 2. Acute headache, intractable. 3. Large neck mass/lymphoma. 4. On chemotherapy. 5. Blindness. PLAN: 1. Admit. 2. Monitor and control blood pressure, the patient is getting IV labetalol, is not responding. We will start IV Cardene drip and place the patient in IMCU. 3. Reassess patient in a.m. If still having headache, consider Neurology and further neurological workup. 4. Reconcile home medications. 5. DVT prophylaxis as appropriate. 6. Expected length of stay, 2 midnights or more. Job ID: [id number]
[2020-01-28] MEDS ORDERED: Acetaminophen 325 MG TAB ONE (05:33)
[2020-01-28] MEDS: Acetaminophen 325 MG TAB PO PRN ×2 (05:41→20:54)
[2020-01-28] MEDS ORDERED: hydrALAZINE 20 MG/ML VIAL SLOW IVP PRN (09:06)
[2020-01-28] MEDS ORDERED: Losartan 25 MG TAB PO SCH (09:15)
[2020-01-28] MEDS ORDERED: Amlodipine 5 MG TAB PO SCH (09:15)
[2020-01-28] MEDS ORDERED: Amlodipine 5 MG TAB ONE (09:33)
[2020-01-28] MEDS ORDERED: Famotidine 20 MG TAB ONE (09:33)
[2020-01-28] MEDS: Famotidine 20 MG TAB PO SCH ×2 (09:47→20:49)
[2020-01-28 10:17] LABS: Hemoglobin 14.6 g/dL (14.0-18.0); Mean Corpuscular HGB CONC 33.4 g/dL (32.0-36.0); Mean Corpuscular Hemoglobin 28.4 pg (27.0-31.0); Mean Corpuscular Volume 84.9 fL (78.0-98.0); Mean Platelet Volume 7.9 fL (7.4-10.4); Platelet Count 249 thou/uL (130-400); RBC Distribution Width 12.8 % (11.5-14.5); Red Blood Cell (RBC) Count 5.13 mill/uL (4.70-6.10); White Blood Cell (WBC) Count 12.5 thou/uL (4.8-10.8)
[2020-01-28 10:24] LABS: Anion Gap 18 mmol/L (10-20); BUN (Urea Nitrogen) 11 mg/dL (8.4-25.7); Calc. Creatinine Clearance 0 mL/min (70-130); Calcium 9.3 mg/dL (7.8-10.44); Carbon Dioxide 18 mmol/L (23-31); Chloride 98 mmol/L (98-107); Estimated GFR-MDRD Greater than 90; Glucose 103 mg/dL (83-110); Potassium 4.2 mmol/L (3.5-5.1); Sodium 130 mmol/L (136-145)
[2020-01-28 10:30] LABS: Troponin I 0.027 ng/mL (< 0.028)
--- NOTE | 2020-01-28 10:57 | PDOC.HOSPP ---
- Subjective Encounter Date: 01/28/20 Subjective: Headache is improved. He still has some visual issues. He does report that he takes medicines at home. Says he takes 5 different pills daily including losartan. - Objective Vital Signs & Weight: Vital Signs (12 hours) Temp Pulse Resp BP BP Pulse Ox 01/28/20 09:48 64 166/113 H 01/28/20 03:34 97.0 F L 64 14 199/81 H 97 Result Diagrams: 01/28/20 09:52 01/28/20 09:52 Hospitalist ROS - Medication Medications: Active Medications Generic Name Dose Route Start Last Admin Trade Name Freq PRN Reason Stop Dose Admin Acetaminophen 650 mg 01/27/20 23:34 01/28/20 05:41 Acetaminophen 325 Mg Tab PO 650 mg Q4H PRN Administration Headache/Fever/Mild Pain (1-3) Amlodipine Besylate 5 mg 01/28/20 09:15 01/28/20 09:48 Amlodipine 5 Mg Tab PO 01/28/20 11:15 5 mg NOW BERNA Administration Famotidine 20 mg 01/28/20 09:00 01/28/20 09:47 Famotidine 20 Mg Tab PO 20 mg BID BERNA Administration Losartan Potassium 50 mg 01/28/20 09:15 01/28/20 09:58 Losartan 25 Mg Tab PO 01/28/20 11:15 50 mg NOW BERNA Administration - Exam General Appearance: NAD, awake alert Neck - other findings: Large mass on the left neck Heart: RRR, no murmur, no gallops, no rubs, normal peripheral pulses Respiratory: CTAB, no wheezes, no rales, no ronchi, normal chest expansion, no tachypnea, normal percussion Gastrointestinal: soft, non-tender, non-distended, normal bowel sounds, no palpable masses, no hepatomegaly, no splenomegaly, no bruit Extremities: no cyanosis, no clubbing, no edema Skin: normal turgor, no lesions, no rashes Neurological: no focal deficits Musculoskeletal: normal tone Psychiatric: normal affect, normal behavior, A&O x 3 Hosp A/P (1) Hypertensive urgency Code(s): I16.0 - HYPERTENSIVE URGENCY Status: Acute (2) CLL (chronic lymphocytic leukemia) Code(s): C91.10 - CHRONIC LYMPHOCYTIC LEUK OF B-CELL TYPE NOT ACHIEVE REMIS Status: Acute (3) Peripheral vascular disease Code(s): I73.9 - PERIPHERAL VASCULAR DISEASE, UNSPECIFIED Status: Chronic (4) Hyponatremia Code(s): E87.1 - HYPO-OSMOLALITY AND HYPONATREMIA Status: Acute - Plan Hypertensive urgency: Patient's symptoms are improved. His blood pressure has improved with a Cardene drip overnight. Initiating his home losartan at an increased dose of 50 mg. Also giving amlodipine 5 mg. Should his blood pressure remained reasonably stable with that will downgrade to a telemetry bed. Hyponatremia: Slightly lower today. We will continue to monitor as the blood pressure is better controlled and his headache resolved. CLL with large left neck mass: Patient has substantial lymphadenopathy in the left neck creating a significant mass. Previous imaging did not show any compromise of the carotid that might be contributing to his hypertension.
[2020-01-28 11:14] LABS: Lymphocytes 15 % (21-51); MDiff Complete? YES; Monocytes 10 % (0-10); Neutrophil 63 % (42-75); Platelet Morphology Comment Appears Adequate; Reactive Lymphocytes 12 % (0-10)
[2020-01-28 15:45] LABS: SARS-CoV-2 MS2 Positive; SARS-CoV-2 N Gene Negative; SARS-CoV-2 S Gene Negative; SARS-CoV-2 by NAA Not Detected (NotDetected); SARS-CoV-2 orf1ab Negative
[2020-01-28 17:57] VITALS: BMI 23.3
[2020-01-29] MEDS: Acetaminophen 325 MG TAB PO PRN ×2 (07:02→14:01)
--- NOTE | 2020-01-29 08:18 | PDOC.HOSPP ---
- Subjective Encounter Date: 01/29/20 Encounter Time: 11:30 Subjective: Patient with minimal headache. Blood pressure much better. No other complaints. - Objective Vital Signs & Weight: Vital Signs (12 hours) Temp Pulse Resp BP Pulse Ox 01/29/20 03:02 98.3 F 92 18 147/75 H 100 01/28/20 20:50 160/81 H Weight Weight 158 lb I&O: 01/28/20 01/29/20 01/30/20 06:59 06:59 06:59 Intake Total 240 Output Total 375 Balance -135 Result Diagrams: 01/28/20 09:52 01/28/20 09:52 Hospitalist ROS - Review of Systems Constitutional: denies: fever, chills Respiratory: denies: cough, shortness of breath Cardiovascular: denies: chest pain, palpitations Gastrointestinal: denies: nausea, vomiting, abdominal pain - Medication Medications: Active Medications Generic Name Dose Route Start Last Admin Trade Name Freq PRN Reason Stop Dose Admin Acetaminophen 650 mg 01/27/20 23:34 01/29/20 07:02 Acetaminophen 325 Mg Tab PO 650 mg Q4H PRN Administration Headache/Fever/Mild Pain (1-3) Famotidine 20 mg 01/28/20 09:00 01/28/20 20:49 Famotidine 20 Mg Tab PO 20 mg BID BERNA Administration Hydralazine HCl 10 mg 01/28/20 09:06 01/28/20 18:55 Hydralazine 20 Mg/Ml Vial SLOW IVP 10 mg Q4H PRN Administration SBP > 185, DBP > 100 Labetalol HCl 20 mg 01/27/20 23:38 01/28/20 12:48 Labetalol Hcl 100 Mg/20 Ml Vial SLOW IVP 20 mg Q4H PRN Administration Hypertension - Exam General Appearance: NAD, awake alert ENT: moist mucosa Heart: RRR, no murmur, no gallops, no rubs Respiratory: CTAB, no wheezes, no rales, no ronchi Gastrointestinal: soft, non-tender, non-distended, normal bowel sounds Psychiatric: normal affect, normal behavior, A&O x 3 Hosp A/P (1) Hypertensive urgency Code(s): I16.0 - HYPERTENSIVE URGENCY Status: Acute (2) Hyponatremia Code(s): E87.1 - HYPO-OSMOLALITY AND HYPONATREMIA Status: Acute (3) CLL (chronic lymphocytic leukemia) Code(s): C91.10 - CHRONIC LYMPHOCYTIC LEUK OF B-CELL TYPE NOT ACHIEVE REMIS Status: Chronic (4) Peripheral vascular disease Code(s): I73.9 - PERIPHERAL VASCULAR DISEASE, UNSPECIFIED Status: Chronic - Plan Hypertensive urgency: Patient's symptoms are improved. His blood pressure has improved and off Cardene drip. Initiated his home losartan at an increased dose of 50 mg. Also starting amlodipine 5 mg. BP improved this AM to 140 systolic. Can d/c home today with these new meds. Hyponatremia: Slightly lower yesterday, still mild. CLL with large left neck mass: Patient has substantial lymphadenopathy in the left neck creating a significant mass. Previous imaging did not show any compromise of the carotid that might be contributing to his hypertension. Had a f/u with oncology today, will need to reschedule.
[2020-01-29] MEDS ORDERED: Amlodipine 5 MG TAB PO SCH ×2 (09:00→14:30)
[2020-01-29] MEDS ORDERED: FLU VACC QS2020-21(65YR UP)/PF 240 MCG/0.7 ML SYRINGE IM ONE (09:00)
[2020-01-29] MEDS: Famotidine 20 MG TAB PO SCH ×2 (09:21→20:58)
[2020-01-29] MEDS: Losartan 25 MG TAB PO SCH (09:22)
[2020-01-29] MEDS: Clopidogrel Bisulfate 75 MG TAB PO SCH (09:22)
[2020-01-29] MEDS: Atorvastatin Calcium 20 MG TAB PO SCH (09:22)
[2020-01-29] MEDS: Aspirin 81 mg Enteric Coated Tablet PO SCH (09:23)
[2020-01-29] MEDS: Timolol 0.5% Ophth Soln 5 ml Bottle L EYE SCH ×2 (09:25→20:59)
[2020-01-29] MEDS: prednisoLONE 1% Ophth Susp 5 ml Bottle EA EYE SCH ×4 (10:59→20:58)
[2020-01-29] MEDS ORDERED: traMADol HCl 50 MG TAB PO PRN (19:45)
[2020-01-30] MEDS: traMADol HCl 50 MG TAB PO PRN ×2 (00:38→15:18)
[2020-01-30 04:26] LABS: #Basophils 0.1 thou/uL (0.0-0.2); #Eosinphils 0.2 thou/uL (0.0-0.7); #Monocytes 0.9 thou/uL (0.11-0.59); #Neutrophils 4.5 thou/uL (1.40-6.50); %Basophils 1.2 % (0.0-1.0); %Eosinophils 1.8 % (0.0-10.0); %Lymphocytes 34.9 % (21.0-51.0); %Monocytes 10.2 % (0.0-10.0); Hemoglobin 13.6 g/dL (14.0-18.0); Mean Corpuscular Hemoglobin 28.6 pg (27.0-31.0); Mean Corpuscular Volume 84.1 fL (78.0-98.0); Mean Platelet Volume 7.9 fL (7.4-10.4); Platelet Count 198 thou/uL (130-400); RBC Distribution Width 12.6 % (11.5-14.5); Red Blood Cell (RBC) Count 4.75 mill/uL (4.70-6.10); White Blood Cell (WBC) Count 8.7 thou/uL (4.8-10.8)
[2020-01-30 04:46] LABS: Anion Gap 16 mmol/L (10-20); BUN (Urea Nitrogen) 19 mg/dL (8.4-25.7); Calc. Creatinine Clearance 89 mL/min (70-130); Calcium 8.7 mg/dL (7.8-10.44); Carbon Dioxide 19 mmol/L (23-31); Chloride 94 mmol/L (98-107); Estimated GFR-MDRD Greater than 90; Glucose 101 mg/dL (83-110); Potassium 3.7 mmol/L (3.5-5.1); Sodium 125 mmol/L (136-145)
--- NOTE | 2020-01-30 07:46 | PDOC.HOSPP ---
- Subjective Encounter Date: 01/30/20 Encounter Time: 09:30 Subjective: Patient with severe pain in left neck mass yest, moderate today. Patient states this is typical for it since it go really big. Patient can't really see at all anymore and no one living at home with him. All family in [place]. Case management working on safe D/C plan. - Objective Vital Signs & Weight: Vital Signs (12 hours) Temp Pulse Resp BP Pulse Ox 01/30/20 03:05 98.5 F 86 18 168/86 H 98 Weight Weight 156 lb I&O: 01/29/20 01/30/20 01/31/20 06:59 06:59 06:59 Intake Total 240 240 Output Total 375 325 Balance -135 -85 Result Diagrams: 01/30/20 04:01 01/30/20 04:01 Hospitalist ROS - Review of Systems Constitutional: denies: fever, chills, weakness Respiratory: denies: cough, shortness of breath Cardiovascular: denies: chest pain, palpitations Gastrointestinal: denies: nausea, vomiting, abdominal pain - Medication Medications: Active Medications Generic Name Dose Route Start Last Admin Trade Name Freq PRN Reason Stop Dose Admin Acetaminophen 650 mg 01/27/20 23:34 01/29/20 14:01 Acetaminophen 325 Mg Tab PO 650 mg Q4H PRN Administration Headache/Fever/Mild Pain (1-3) Aspirin 81 mg 01/29/20 09:00 01/29/20 09:23 Aspirin 81 Mg Enteric Coated Tablet PO 81 mg DAILY BERNA Administration Atorvastatin Calcium 20 mg 01/29/20 09:00 01/29/20 09:22 Atorvastatin Calcium 20 Mg Tab PO 20 mg DAILY BERNA Administration Clopidogrel Bisulfate 75 mg 01/29/20 09:00 01/29/20 09:22 Clopidogrel Bisulfate 75 Mg Tab PO 75 mg DAILY BERNA Administration Famotidine 20 mg 01/28/20 09:00 01/29/20 20:58 Famotidine 20 Mg Tab PO 20 mg BID BERNA Administration Hydralazine HCl 10 mg 01/28/20 09:06 01/28/20 18:55 Hydralazine 20 Mg/Ml Vial SLOW IVP 10 mg Q4H PRN Administration SBP > 185, DBP > 100 Labetalol HCl 20 mg 01/27/20 23:38 01/28/20 12:48 Labetalol Hcl 100 Mg/20 Ml Vial SLOW IVP 20 mg Q4H PRN Administration Hypertension Losartan Potassium 50 mg 01/29/20 09:00 01/29/20 09:22 Losartan 25 Mg Tab PO 50 mg DAILY BERNA Administration Prednisolone Acetate 1 drop 01/29/20 13:00 01/29/20 20:58 Prednisolone 1% Ophth Susp 5 Ml Bottle EA EYE 1 drp QID BERNA Administration Sodium Chloride 10 ml 01/29/20 09:00 01/29/20 20:59 Flush - Normal Saline 10 Ml Syringe IVF 10 ml Q12HR BERNA Administration Timolol Maleate 1 drop 01/29/20 09:00 01/29/20 20:59 Timolol 0.5% Ophth Soln 5 Ml Bottle L EYE 1 drop BID BERNA Administration Tramadol HCl 100 mg 01/29/20 19:45 01/30/20 00:38 Tramadol Hcl 50 Mg Tab PO 100 mg Q4H PRN Administration Severe Pain (7-10) - Exam General Appearance: NAD, awake alert ENT: moist mucosa ENT - other findings: very large hard mass over entire left side of neck Heart: RRR, no murmur, no gallops, no rubs Respiratory: CTAB, no wheezes, no rales, no ronchi Gastrointestinal: soft, non-tender, non-distended, normal bowel sounds Psychiatric: normal affect, normal behavior, A&O x 3 Hosp A/P (1) Hypertensive urgency Code(s): I16.0 - HYPERTENSIVE URGENCY Status: Acute (2) Hyponatremia Code(s): E87.1 - HYPO-OSMOLALITY AND HYPONATREMIA Status: Acute (3) CLL (chronic lymphocytic leukemia) Code(s): C91.10 - CHRONIC LYMPHOCYTIC LEUK OF B-CELL TYPE NOT ACHIEVE REMIS Status: Chronic (4) Peripheral vascular disease Code(s): I73.9 - PERIPHERAL VASCULAR DISEASE, UNSPECIFIED Status: Chronic - Plan Hypertensive urgency: Patient's symptoms are improved. His blood pressure has improved and off Cardene drip. Initiated his home losartan at an increased dose of 50 mg. Also starting amlodipine 10 mg. BP improving, though goes up when in pain from cancer. Hyponatremia: Further drop today. Will ask nephrology to see. 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 CLL with large left neck mass: Patient has substantial lymphadenopathy in the left neck creating a significant mass. Previous imaging did not show any compromise of the carotid that might be contributing to his hypertension. Worsening pain and symptoms. Will consult oncology. 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 Cannot care for self at home. Case management to work on safe d/c plan.
[2020-01-30] MEDS: Aspirin 81 mg Enteric Coated Tablet PO SCH (08:46)
[2020-01-30] MEDS: Amlodipine 10 MG TAB PO SCH (08:46)
[2020-01-30] MEDS: Clopidogrel Bisulfate 75 MG TAB PO SCH (08:46)
[2020-01-30] MEDS: Famotidine 20 MG TAB PO SCH ×2 (08:46→23:25)
[2020-01-30] MEDS: Acetaminophen 325 MG TAB PO PRN (08:46)
[2020-01-30] MEDS: Losartan 25 MG TAB PO SCH (08:46)
[2020-01-30] MEDS: prednisoLONE 1% Ophth Susp 5 ml Bottle EA EYE SCH ×4 (08:47→23:23)
[2020-01-30] MEDS: Timolol 0.5% Ophth Soln 5 ml Bottle L EYE SCH ×2 (08:47→23:24)
[2020-01-30] MEDS: Atorvastatin Calcium 20 MG TAB PO SCH (08:47)
[2020-01-30] MEDS ORDERED: Sodium Chloride 1 GM TAB PO SCH (09:30)
[2020-01-30 13:47] LABS: Bacteria/HPF None Seen HPF (None Seen); Bilirubin Negative (Negative); Blood, Urine Trace (Negative); Clarity Clear (Clear); Glucose, Urine (Dipstick) Normal (Negative); Ketone, Urine 10 mg/dL (Negative); Leukocyte Negative Leu/uL (Negative); Nitrite Negative (Negative); Protein, Urine (Dipstick) 30 mg/dL (Neg-Trace); Specific Gravity, Urine 1.026 (1.002-1.036); Squamous Epithelial 0-3 HPF (0-3); Urobilinogen 3 mg/dL (Less than 2); WBC/HPF 0-3 HPF (0-3)
[2020-01-30] MEDS: Sodium Chloride 1 GM TAB PO SCH ×2 (15:21→23:25)
[2020-01-30] MEDS ORDERED: Losartan 25 MG TAB PO SCH (16:00)
--- NOTE | 2020-01-30 17:03 | CON ---
DATE OF CONSULTATION: 01/30/2020 SERVICE: Nephrology. REASON FOR CONSULTATION: Hyponatremia. REQUESTING PHYSICIAN: Dr. Russ Eaton. CHIEF COMPLAINT: Worsening headache, and left neck and shoulder pain. HISTORY OF PRESENT ILLNESS: A 70-year-old male patient with known history of CLL as well as recent diagnosis of lymphoma, yet to start chemotherapy, and recent left eye blindness, presenting to the hospital with worsening headache and left-sided neck and shoulder pain. The patient who has right eye blindness from trauma to right eye, currently is blind totally. He denied nausea, vomiting, leg swelling, abdominal pain, dysuria, hematuria, or change in bowel habit. The patient was recently hospitalized and subsequently discharged following treatment for acute left eye blindness as well as headache. Since hospitalization, the patient was noted to have a drop in sodium from 134 on admission to 125 earlier today, necessitating Nephrology consult due to concern for SIADH. The patient received normal saline infusion 1 L in the emergency room. Blood pressure on presentation also noted to be markedly elevated with systolic blood pressure up to 219, hence has required Cardene treatment initially. The patient denied excessive free water intake. PAST MEDICAL HISTORY: 1. Bladder cancer. 2. CLL. 3. Hypertension. 4. Gastroesophageal reflux disease. 5. Peptic ulcer disease. 6. Hyperlipidemia. 7. Peripheral vascular disease. 8. 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 9. Recent acute blindness of left eye of unclear etiology. PAST SURGICAL HISTORY: 1. Eye surgery. 2. Bladder surgery. 3. Prior EGD and colonoscopy. 4. Left neck lymph node biopsy. 5. Stent placement to the heart. 6. Stent placement to the leg. FAMILY HISTORY: Limited due to the patient's condition. SOCIAL HISTORY: The patient lives at home alone. Denied alcohol or recreational drug use. He is a former smoker and admitted to use of marijuana previously. ALLERGIES: ASPIRIN. MEDICATIONS: Prior to hospital, medications are as follows; 1. Plavix 75 mg p.o. daily. 2. Lipitor 20 mg p.o. daily. 3. Prednisone eye drop. 4. Aspirin 81 mg daily. 5. Losartan 50 mg p.o. daily. 6. Amlodipine 10 mg p.o. daily. Current hospital medications are as follows; 1. Amlodipine 10 mg daily. 2. Aspirin 81 mg p.o. daily. 3. Lipitor 20 mg daily. 4. Plavix 75 mg p.o. daily. 5. Pepcid 20 mg p.o. b.i.d. 6. Losartan 50 mg p.o. daily. 7. Prednisone eyedrop q.i.d. 8. Timolol eyedrop b.i.d. 9. Acetaminophen p.r.n. REVIEW OF SYSTEMS: A 12-point review of systems performed was negative other than pertinent positives and negatives included in the history of present illness. PHYSICAL EXAMINATION: VITAL SIGNS: Temperature 98.5, pulse 90, respiratory rate 20, SpO2 of 97 on room air, blood pressure is 186/88. I and O in the last 24 hours is conclusive. GENERAL: Elderly male, in no obvious distress. Afebrile, anicteric, acyanotic. HEENT: Normocephalic and atraumatic. Oral mucosa is moist. Right corneal opacification noted. NECK: Large left-sided neck mass with mild tenderness as well as some deformity noted. It is firm with no fluctuance. CARDIOVASCULAR: Regular rhythm and rate with normal heart sounds 1 and 2. RESPIRATORY: Fair air entry bilaterally with no obvious crackle or rhonchi or use of accessory muscles. GI: Full, soft, nontender, nondistended with normal bowel sounds. EXTREMITIES: Grossly normal looking and atraumatic with no obvious edema or erythema. CASH POSTING CLERK: Conscious and alert and oriented x3 with appropriate mental status. Cranial nerves 2 through 12 are grossly intact. The patient moves all extremities. DIAGNOSTIC DATA: CBC today showed WBC count of 8.5, hemoglobin of 13.6, platelets of 198. Chemistry today showed sodium 125, potassium 3.7, chloride 94, CO2 of 19, BUN 19, creatinine 0.77, glucose 101, calcium 8.7. Of note, sodium was 134 on presentation on January 26. Review of medical records showed that the patient has had mild hyponatremia dating back to September 2016, but this has been intermittent. ASSESSMENT: 1. Hyponatremia: The patient has chronic intermittent hyponatremia dating back to 2016, ranging from 132 to 135. It was 134 on presentation, but has progressively trended downwards to 125 today. Of note, the patient received IV fluid therapy on presentation to the ER. He also has accelerated hypertension with systolic above 200 on presentation. Syndrome of inappropriate antidiuretic hormone secretion seems most likely in this patient, given known history of CLL, bladder cancer, and now lymphoma. Acute worsening most likely is related to IV fluid therapy with normal saline. The patient denied aggressive or liberal free water intake. 2. 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 3. Accelerated hypertension. 4. Lymphoma. Yet to be started on treatment. 5. New onset left-sided blindness of unclear etiology. PLAN: 1. We will get urinalysis as well as urine osmolality and plasma osmolality. 2. We will also start the patient on salt tablet. 3. We will start the patient on fluid restriction of 1200 per 24 hours. 4. We will also increase losartan to get adequate BP control from 50 daily to 50 b.i.d. 5. We will consider substituting amlodipine with nifedipine with a view to titrating same upwards to get adequate BP control. 6. We will recheck electrolytes. 7. We will also get urinalysis with microscopy. Further treatment to follow depending on hospital course and review of other diagnostic tests. Many thanks for involving us in the care of this patient. We will follow along with you. Job ID: [id number] [email or web address]
--- NOTE | 2020-01-30 20:53 | CON ---
DATE OF CONSULTATION: REASON FOR CONSULTATION: Lymphoma. HISTORY OF PRESENT ILLNESS: Mr. Cornejo is a 70-year-old gentleman, who has CLL. He was on ibrutinib, but progressed in November with enlarging left cervical and supraclavicular lymphadenopathy. He had a biopsy by ENT in mid December, which confirmed his lymphoma, he was to start chemotherapy with Rituxan, Cytoxan, Adriamycin, and vincristine. However, he required a MediPort prior to chemotherapy. He also had no secondary insurance and was undergoing the financial assistance process here at the hospital. He unfortunately missed two appointments with the surgeon and has not turned in his financial paperwork, and so we have had a delay in treatment. He was in the ER last week and was having significant pain, blurred vision, and dizziness, felt to be secondary to pressure on the optic nerve. He once again presented to the emergency room on January 26 with headache. He underwent an MRI and a brain CT, which were unremarkable except for his left neck mass. He was hypertensive and admitted for hypertensive urgency. He has a history of noncompliance with his blood pressure medications. He was seen at bedside and is complaining of pain in his neck. He states his vision has changed and he sees "shadows" in his left eye. He has blindness in his right eye from a prior injury. PAST MEDICAL HISTORY: 1. CLL. 2. Hypertension. 3. Coronary artery disease. PAST SURGICAL HISTORY: 1. Lymph node biopsy. 2. Eye surgery. 3. Bladder surgery. 4. GI bleed in 2012. ALLERGIES: NO KNOWN DRUG ALLERGIES. HOME MEDICATIONS: 1. Clopidogrel. 2. Lipitor. 3. Aspirin. 4. Losartan. 5. Norvasc. FAMILY HISTORY: Noncontributory. SOCIAL HISTORY: He has three children. Lives alone. Social drinker. No illicit drug use. He is a former smoker. REVIEW OF SYSTEMS: A 12-point review of systems is negative except for noted in the HPI. PHYSICAL EXAMINATION: VITAL SIGNS: Temperature 97.5, pulse is 83, respiratory rate 18, blood pressure is 163/74. He is 98% on room air. GENERAL: This is a chronically ill-appearing male, in mild pain. HEENT: Normocephalic, atraumatic. His right pupil has a film. His left pupil is injected. NECK: He has a large conglomeration of cervical lymph nodes extending from the base of his skull to below his clavicle. CV: Regular rate and rhythm. LUNGS: Clear. ABDOMEN: Soft. NEUROLOGIC: Nonfocal. PERTINENT LABORATORY DATA AND X-RAYS: WBCs are 8.7, hemoglobin 13.6, hematocrit 39.9, and platelet count is 198,000. He has 52% neutrophils, 35% lymphocytes, 10% monocytes. , potassium 3.7, chloride 94, CO2 is 19, BUN is 16, creatinine is 0.77, bilirubin is 0.7, AST is 17, ALT 17, alkaline phosphatase is 119, 210. Troponin is negative. Serum total protein is 7.9, albumin 4.4, globulin 3.5. COVID negative. Radiology per HPI. ASSESSMENT: 1. CD5 positive B-cell lymphoma. 2. Hypertension. DISCUSSION: The patient has had interval growth in his lymph node conglomeration in his left neck. On the scan, he has no other evidence of disease. There have been a delay in his treatment and interval growth in his left neck mass. He needs chemotherapy on this admission. We will consult General Surgery for MediPort placement. He will be getting Adriamycin, which requires MediPort administration. We will also get an echocardiogram if he has not yet received one in the last several months. He does see Dr. Padilla for his coronary artery disease. I will check uric acid and LDH and start him on allopurinol as he is high risk for tumor lysis. Fortunately, his kidney function is normal. He will be transferred to the oncology floor once his blood pressure is better controlled. Case has [facility] Dr. Murillo [facility] Thank you for the consult. We will follow his hospital course closely. Job ID: [id number]
[2020-01-31] MEDS: Sodium Chloride 0.9% 1,000 ML IV SCH ×2 (00:33→12:22)
[2020-01-31] MEDS ORDERED: Midazolam HCl 2 mg/2 ml Vial ONE (06:34)
[2020-01-31] MEDS ORDERED: Fentanyl 100 MCG/2 ML VIAL ONE (06:34)
[2020-01-31] MEDS ORDERED: Lidocaine 1% w/Epinephrine 1:100K 20 ML VIAL ONE (06:59)
[2020-01-31] MEDS ORDERED: Bupivacaine 0.25% HCL 30 ML VIAL ONE (06:59)
--- NOTE | 2020-01-31 07:45 | PDOC.HOSPP ---
- Subjective Encounter Date: 01/31/20 Encounter Time: 12:10 Subjective: Patient back from Mediport placement. No complaints right now. Was having severe pain on left neck and face but not now. - Objective Vital Signs & Weight: Vital Signs (12 hours) Pulse Ox 01/30/20 20:00 99 Weight Weight 156 lb I&O: 01/30/20 01/31/20 02/01/20 06:59 06:59 06:59 Intake Total 240 560 Output Total 325 1100 Balance -85 -540 Result Diagrams: 01/30/20 04:01 01/30/20 04:01 Hospitalist ROS - Review of Systems Constitutional: denies: fever, chills Respiratory: denies: cough, shortness of breath Cardiovascular: denies: chest pain, palpitations Gastrointestinal: denies: nausea, vomiting, abdominal pain - Medication Medications: Active Medications Generic Name Dose Route Start Last Admin Trade Name Freq PRN Reason Stop Dose Admin Acetaminophen 650 mg 01/27/20 23:34 01/30/20 08:46 Acetaminophen 325 Mg Tab PO 650 mg Q4H PRN Administration Headache/Fever/Mild Pain (1-3) Amlodipine Besylate 10 mg 01/30/20 09:00 01/30/20 08:46 Amlodipine 10 Mg Tab PO 10 mg DAILY BERNA Administration Aspirin 81 mg 01/29/20 09:00 01/30/20 08:46 Aspirin 81 Mg Enteric Coated Tablet PO 81 mg DAILY BERNA Administration Atorvastatin Calcium 20 mg 01/29/20 09:00 01/30/20 08:47 Atorvastatin Calcium 20 Mg Tab PO 20 mg DAILY BERNA Administration Clopidogrel Bisulfate 75 mg 01/29/20 09:00 01/30/20 08:46 Clopidogrel Bisulfate 75 Mg Tab PO 75 mg DAILY BERNA Administration Famotidine 20 mg 01/28/20 09:00 01/30/20 23:25 Famotidine 20 Mg Tab PO 20 mg BID BERNA Administration Hydralazine HCl 10 mg 01/28/20 09:06 01/28/20 18:55 Hydralazine 20 Mg/Ml Vial SLOW IVP 10 mg Q4H PRN Administration SBP > 185, DBP > 100 Sodium Chloride 1,000 mls @ 75 mls/hr 01/31/20 00:01 01/31/20 00:33 Normal Saline 0.9% IV 1,000 mls .[id number] BERNA Administration Labetalol HCl 20 mg 01/27/20 23:38 01/28/20 12:48 Labetalol Hcl 100 Mg/20 Ml Vial SLOW IVP 20 mg Q4H PRN Administration Hypertension Prednisolone Acetate 1 drop 01/29/20 13:00 01/30/20 23:23 Prednisolone 1% Ophth Susp 5 Ml Bottle EA EYE 1 drp QID BERNA Administration Sodium Chloride 10 ml 01/29/20 09:00 01/30/20 23:26 Flush - Normal Saline 10 Ml Syringe IVF 10 ml Q12HR BERNA Administration Sodium Chloride 1 gm 01/30/20 15:00 01/30/20 23:25 Sodium Chloride 1 Gm Tab PO 1 gm TID BERNA Administration Timolol Maleate 1 drop 01/29/20 09:00 01/30/20 23:24 Timolol 0.5% Ophth Soln 5 Ml Bottle L EYE 1 drop BID BERNA Administration Tramadol HCl 50 mg 01/29/20 19:45 01/30/20 23:21 Tramadol Hcl 50 Mg Tab PO 50 mg Q4H PRN Administration Moderate Pain (4-6) Tramadol HCl 100 mg 01/29/20 19:45 01/30/20 15:18 Tramadol Hcl 50 Mg Tab PO 100 mg Q4H PRN Administration Severe Pain (7-10) - Exam General Appearance: NAD, awake alert ENT: moist mucosa Heart: RRR, no murmur, no gallops, no rubs Respiratory: CTAB, no wheezes, no rales, no ronchi Respiratory - other findings: Right sided Mediport in place now Gastrointestinal: soft, non-tender, non-distended, normal bowel sounds Psychiatric: normal affect, normal behavior, A&O x 3 Hosp A/P (1) Hypertensive urgency Code(s): I16.0 - HYPERTENSIVE URGENCY Status: Acute (2) Hyponatremia Code(s): E87.1 - HYPO-OSMOLALITY AND HYPONATREMIA Status: Acute (3) CLL (chronic lymphocytic leukemia) Code(s): C91.10 - CHRONIC LYMPHOCYTIC LEUK OF B-CELL TYPE NOT ACHIEVE REMIS Status: Chronic (4) Peripheral vascular disease Code(s): I73.9 - PERIPHERAL VASCULAR DISEASE, UNSPECIFIED Status: Chronic - Plan Hypertensive urgency: Patient's symptoms are improved. His blood pressure has improved and off Cardene drip. Initiated his home losartan at an increased dose of 50 mg. Started amlodipine 10 mg. BP improved, though goes up when in pain from cancer. Hyponatremia: Further drop today. Will ask nephrology to see. 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 CLL with large left neck mass: Patient has substantial lymphadenopathy in the left neck creating a significant mass. Previous imaging did not show any compromise of the carotid that might be contributing to his hypertension. Worsening pain and symptoms. Patient has had poor outpatient f/u. Needs Mediport and initiate chemo in the hospital. 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 Cannot care for self at home. Case management to work on safe d/c plan. Plan is for daughter to take him home once discharged.
--- NOTE | 2020-01-31 08:22 | CON ---
DATE OF CONSULTATION: CHIEF COMPLAINT: Lymphoma. HISTORY OF PRESENT ILLNESS: This patient is a 70-year-old black male. He has a history of CLL. He has previously been treated for this over the past couple of months. There were some issues with noncompliance, missed appointments, and financial issues that led to him not having a prior MediPort, not having chemotherapy. He is recently admitted to the hospital secondary to hypertensive emergency, likely related to noncompliance with the blood pressure medication. He was admitted here a couple of days ago. His oncologist has requested MediPort placement while he is an inpatient in order to initiate his chemotherapy. He has a huge mass protruding from his left neck. He states he has been there over the course of the past two or three months. PAST MEDICAL HISTORY: 1. CLL. 2. Hypertension. 3. Coronary artery disease. PAST SURGICAL HISTORY: 1. Lymph node biopsy. 2. Eye surgery. 3. Bladder surgery. ALLERGIES: NO KNOWN DRUG ALLERGIES. MEDICATIONS: 1. Plavix. 2. Lipitor. 3. Aspirin. 4. Losartan. 5. Norvasc. PERSONAL SOCIAL HISTORY: He lives alone. He is apparently blind in both eyes. He has three children. He drank alcohol up until about a month ago, but he tells me he quit then. He is a former drug abuser, but tells me he has used this in a long time. He still smokes but much less than he used to. He estimates now only several cigarettes per day. REVIEW OF SYSTEMS: Unremarkable otherwise. PHYSICAL EXAMINATION: VITAL SIGNS: He is currently afebrile with normal vital signs. GENERAL: He is an elderly black male, resting in bed, in no acute distress. He is alert and oriented x3. His appearance is dominated initially by the huge mass protruding from his left neck. LUNGS: Clear to auscultation. CARDIAC: Regular rate and rhythm. ABDOMEN: Soft. LABORATORY DATA: CBC and basic metabolic panel reviewed. He did have some hyponatremia and hypochloremia yesterday. He has been started on normal saline by myself last night. His CBC is essentially normal currently. ASSESSMENT: The patient with chronic lymphocytic leukemia, who requires MediPort placement. PLAN: MediPort placement today. We will leave the port access so he can begin chemotherapy. I discussed the operation in detail with the patient as well as potential risks. He understands and agrees to proceed with surgery at this time. Job ID: [id number]
[2020-01-31] MEDS ORDERED: Ketorolac Tromethamine 30 MG/ML VIAL ONE (09:01)
[2020-01-31] MEDS ORDERED: Ondansetron HCl/PF 4 MG/2 ML Vial IVP PRN (09:03)
[2020-01-31] MEDS ORDERED: Ketorolac Tromethamine 30 MG/ML VIAL IVP PRN (09:03)
--- NOTE | 2020-01-31 09:03 | RAD ---
Chest AP view INDICATION: Mediport placement COMPARISON: January 22, 2020 FINDINGS: Lungs: Emphysematous change is stable. Bullous disease of the upper lobes, right greater than left a re similar. Cardiac silhouette: There is a new right subclavian chest wall Mediport in place. The tip of the cat heter projects in the region of the SVC. Pulmonary vasculature: Normal Pleural spaces: No pleural effusion or pneumothorax is demonstrated. Upper abdomen: No abnormality seen. Osseous structures: No acute osseous abnormality. Additional findings: None. IMPRESSION: New right subclavian chest wall Mediport placement. No pneumothorax. Stable chronic lung changes.
[2020-01-31] MEDS: Aspirin 81 mg Enteric Coated Tablet PO SCH (11:40)
[2020-01-31] MEDS: Amlodipine 10 MG TAB PO SCH (11:40)
[2020-01-31] MEDS: Allopurinol 100 MG TAB PO SCH (11:40)
[2020-01-31] MEDS: Famotidine 20 MG TAB PO SCH ×2 (11:41→20:52)
[2020-01-31] MEDS: prednisoLONE 1% Ophth Susp 5 ml Bottle EA EYE SCH ×4 (11:41→20:52)
[2020-01-31] MEDS: Losartan 25 MG TAB PO SCH (11:41)
[2020-01-31] MEDS: Clopidogrel Bisulfate 75 MG TAB PO SCH (11:41)
[2020-01-31] MEDS: Atorvastatin Calcium 20 MG TAB PO SCH (11:41)
[2020-01-31] MEDS: Sodium Chloride 1 GM TAB PO SCH ×3 (11:42→20:52)
[2020-01-31] MEDS: Timolol 0.5% Ophth Soln 5 ml Bottle L EYE SCH ×2 (11:42→20:52)
[2020-01-31 12:34] LABS: Anion Gap 17 mmol/L (10-20); BUN (Urea Nitrogen) 20 mg/dL (8.4-25.7); Calc. Creatinine Clearance 78 mL/min (70-130); Calcium 8.5 mg/dL (7.8-10.44); Carbon Dioxide 17 mmol/L (23-31); Chloride 97 mmol/L (98-107); Estimated GFR-MDRD Greater than 90; Glucose 93 mg/dL (83-110); Potassium 3.8 mmol/L (3.5-5.1); Sodium 127 mmol/L (136-145)
--- NOTE | 2020-01-31 15:50 | PDOC.MOPN ---
Interval History: better today, no pain. - Vital Signs Vital Signs: Vital Signs (12 hours) Temp Pulse Resp BP BP Pulse Ox 01/31/20 15:31 98.0 F 86 16 119/59 L 98 01/31/20 13:40 130/72 01/31/20 11:34 98.9 F 83 18 158/70 H 100 Weight Weight 156 lb - Physical Exam General: Alert, Oriented x3, No acute distress HEENT: Atraumatic, PERRLA, EOMI, Mucous membr. moist/pink, Other (left neck mass) Lungs: Clear to auscultation Cardiovascular: Regular rate Abdomen: Normal bowel sounds Neurological: Normal speech Psych/Mental Status: Mental status NL - Labs Result Diagrams: 01/30/20 04:01 01/31/20 11:43 Lab results: Laboratory Results - last 24 hr 01/31/20 11:43: Sodium 127 L, Potassium 3.8, Chloride 97 L, Carbon Dioxide 17 L, Anion Gap 17, BUN 20, Creatinine 0.87, Estimated GFR (MDRD) Greater than 90, Glucose 93, Calcium 8.5 01/31/20 08:43: POC Glucose 122 H 01/30/20 15:58: Lactate Dehydrogenase 1232 H 01/30/20 15:58: Uric Acid 3.6 Status: lab reviewed by me A/P - Problem (1) CLL (chronic lymphocytic leukemia) Current Visit: No Code(s): C91.10 - CHRONIC LYMPHOCYTIC LEUK OF B-CELL TYPE NOT ACHIEVE REMIS Status: Chronic - Plan Plan: Mediport placed this am transfer to Onc floor today anticipate chemo tomorrow allopurinol for possible TLS
--- NOTE | 2020-01-31 16:17 | PDOC.NEPPN ---
- Subjective Encounter Date: 01/31/20 Subjective: Seen in follow up for hyponatremia. No new problem. Denied nausea, vomiting or pain. - Objective Vital Signs & Weight: Vital Signs (12 hours) Temp Pulse Resp BP BP Pulse Ox 01/31/20 15:31 98.0 F 86 16 119/59 L 98 01/31/20 13:40 130/72 01/31/20 11:34 98.9 F 83 18 158/70 H 100 Weight Weight 156 lb I&O: 01/30/20 01/31/20 02/01/20 06:59 06:59 06:59 Intake Total 240 560 Output Total 325 1100 Balance -85 -540 Result Diagrams: 01/30/20 04:01 01/31/20 11:43 Additional Labs: Accuchecks 01/31/20 08:43 POC Glucose 122 H Nephrology ROS - Medication Medications: Active Medications Generic Name Dose Route Start Last Admin Trade Name Freq PRN Reason Stop Dose Admin Acetaminophen 650 mg 01/27/20 23:34 01/30/20 08:46 Acetaminophen 325 Mg Tab PO 650 mg Q4H PRN Administration Headache/Fever/Mild Pain (1-3) Allopurinol 100 mg 01/31/20 09:00 01/31/20 11:40 Allopurinol 100 Mg Tab PO 100 mg DAILY BERNA Administration Amlodipine Besylate 10 mg 01/30/20 09:00 01/31/20 11:40 Amlodipine 10 Mg Tab PO 10 mg DAILY BERNA Administration Aspirin 81 mg 01/29/20 09:00 01/31/20 11:40 Aspirin 81 Mg Enteric Coated Tablet PO 81 mg DAILY BERNA Administration Atorvastatin Calcium 20 mg 01/29/20 09:00 01/31/20 11:41 Atorvastatin Calcium 20 Mg Tab PO 20 mg DAILY BERNA Administration Clopidogrel Bisulfate 75 mg 01/29/20 09:00 01/31/20 11:41 Clopidogrel Bisulfate 75 Mg Tab PO 75 mg DAILY BERNA Administration Famotidine 20 mg 01/28/20 09:00 01/31/20 11:41 Famotidine 20 Mg Tab PO 20 mg BID BERNA Administration Hydralazine HCl 10 mg 01/28/20 09:06 01/28/20 18:55 Hydralazine 20 Mg/Ml Vial SLOW IVP 10 mg Q4H PRN Administration SBP > 185, DBP > 100 Sodium Chloride 1,000 mls @ 75 mls/hr 01/31/20 00:01 01/31/20 12:22 Normal Saline 0.9% IV 1,000 mls .[id number] BERNA Administration Labetalol HCl 20 mg 01/27/20 23:38 01/28/20 12:48 Labetalol Hcl 100 Mg/20 Ml Vial SLOW IVP 20 mg Q4H PRN Administration Hypertension Losartan Potassium 100 mg 01/31/20 09:00 01/31/20 11:41 Losartan 25 Mg Tab PO 100 mg DAILY BERNA Administration Prednisolone Acetate 1 drop 01/29/20 13:00 01/31/20 12:11 Prednisolone 1% Ophth Susp 5 Ml Bottle EA EYE Not Given QID BERNA Sodium Chloride 10 ml 01/29/20 09:00 01/31/20 11:42 Flush - Normal Saline 10 Ml Syringe IVF 10 ml Q12HR BERNA Administration Sodium Chloride 1 gm 01/30/20 15:00 01/31/20 14:40 Sodium Chloride 1 Gm Tab PO 1 gm TID BERNA Administration Timolol Maleate 1 drop 01/29/20 09:00 01/31/20 11:42 Timolol 0.5% Ophth Soln 5 Ml Bottle L EYE 1 drop BID BERNA Administration Tramadol HCl 50 mg 01/29/20 19:45 01/30/20 23:21 Tramadol Hcl 50 Mg Tab PO 50 mg Q4H PRN Administration Moderate Pain (4-6) Tramadol HCl 100 mg 01/29/20 19:45 01/30/20 15:18 Tramadol Hcl 50 Mg Tab PO 100 mg Q4H PRN Administration Severe Pain (7-10) - Exam General Appearance: awake alert Eye: anicteric sclera ENT: normocephalic atraumatic Neck - other findings: Left sided neck masses noted Respiratory: no wheezes, no rales, no ronchi, normal chest expansion, no tachypnea Cardiovascular: RRR Gastrointestinal: soft, non-tender, non-distended, normal bowel sounds Extremities: no edema Neurological: CN's grossly intact, no focal deficits, vision deficit PSYCH: A&O x 3 Nephrology Results - Labs Result Diagrams: 01/30/20 04:01 01/31/20 11:43 Lab results: WBC 8.7 thou/uL (4.8-10.8) 01/30/20 04:01 Hgb 13.6 g/dL (14.0-18.0) L 01/30/20 04:01 Hct 39.9 % (42.0-52.0) L 01/30/20 04:01 MCV 84.1 fL (78.0-98.0) 01/30/20 04:01 Plt Count 198 thou/uL (130-400) 01/30/20 04:01 Neutrophils % 52.0 % (42.0-75.0) 01/30/20 04:01 Sodium 127 mmol/L (136-145) L 01/31/20 11:43 Potassium 3.8 mmol/L (3.5-5.1) 01/31/20 11:43 Chloride 97 mmol/L (98-107) L 01/31/20 11:43 Carbon Dioxide 17 mmol/L (23-31) L 01/31/20 11:43 BUN 20 mg/dL (8.4-25.7) 01/31/20 11:43 Creatinine 0.87 mg/dL (0.7-1.3) 01/31/20 11:43 Glucose 93 mg/dL (83-110) 01/31/20 11:43 Calcium 8.5 mg/dL (7.8-10.44) 01/31/20 11:43 Total Bilirubin 0.7 mg/dL (0.2-1.2) 01/27/20 21:34 AST 17 U/L (5-34) 01/27/20 21:34 ALT 17 U/L (8-55) 01/27/20 21:34 Alkaline Phosphatase 119 U/L (40-110) H 01/27/20 21:34 Troponin I 0.027 ng/mL (< 0.028) 01/28/20 09:52 B-Natriuretic Peptide 210.5 pg/mL (0-100) H 01/27/20 21:34 Serum Total Protein 7.9 g/dL (5.8-8.1) 01/27/20 21:34 Albumin 4.4 g/dL (3.4-4.8) 01/27/20 21:34 Urine Ketones 10 mg/dL (Negative) A 01/30/20 12:28 Urine Blood Trace (Negative) A 01/30/20 12:28 Urine Nitrite Negative (Negative) 01/30/20 12:28 Ur Leukocyte Esterase Negative Orlin/uL (Negative) 01/30/20 12:28 Urine RBC 7-10 HPF (0-3) A 01/30/20 12:28 Urine WBC 0-3 HPF (0-3) 01/30/20 12:28 Ur Squamous Epith Cells 0-3 HPF (0-3) 01/30/20 12:28 Urine Bacteria None Seen HPF (None Seen) 01/30/20 12:28 Sodium 127 mmol/L (136-145) L 01/31/20 11:43 Potassium 3.8 mmol/L (3.5-5.1) 01/31/20 11:43 Chloride 97 mmol/L (98-107) L 01/31/20 11:43 Carbon Dioxide 17 mmol/L (23-31) L 01/31/20 11:43 Anion Gap 17 mmol/L (10-20) 01/31/20 11:43 BUN 20 mg/dL (8.4-25.7) 01/31/20 11:43 Creatinine 0.87 mg/dL (0.7-1.3) 01/31/20 11:43 Glucose 93 mg/dL (83-110) 01/31/20 11:43 Calcium 8.5 mg/dL (7.8-10.44) 01/31/20 11:43 Albumin 4.4 g/dL (3.4-4.8) 01/27/20 21:34 Nephrology AP PN - Plan 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 Sodium is trending up with salt tablet. 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 HTN: Control acceptable. Lymphoma. Chemotherapy planning in progress Plan Continue salt tablet and fluid restriction. Monitor electrolyte. Agree with allupurinol for TLS.
[2020-01-31] MEDS ORDERED: Sodium Chloride 0.9% 1,000 ML IV SCH (16:30)
[2020-01-31] MEDS: Senokot 8.6 MG TAB PO PRN (20:52)
[2020-02-01] MEDS: traMADol HCl 50 MG TAB PO PRN (03:40)
[2020-02-01 04:06] LABS: ALT (SGPT) 8 U/L (8-55); AST (SGOT) 24 U/L (5-34); Albumin 3.4 g/dL (3.4-4.8); Alkaline Phosphatase 90 U/L (40-110); Anion Gap 16 mmol/L (10-20); BUN (Urea Nitrogen) 21 mg/dL (8.4-25.7); Bilirubin, Total 0.7 mg/dL (0.2-1.2); Calc. Creatinine Clearance 89 mL/min (70-130); Calcium 8.6 mg/dL (7.8-10.44); Carbon Dioxide 19 mmol/L (23-31); Chloride 99 mmol/L (98-107); Estimated GFR-MDRD Greater than 90; Globulin 2.8 g/dL (2.4-3.5); Glucose 98 mg/dL (83-110); Phosphorus 2.6 mg/dL (2.3-4.7); Potassium 3.7 mmol/L (3.5-5.1); Protein, Total 6.2 g/dL (5.8-8.1); Sodium 130 mmol/L (136-145)
--- NOTE | 2020-02-01 05:30 | OP ---
DATE OF PROCEDURE: 02/01/2020 PREOPERATIVE DIAGNOSIS: Chronic lymphocytic leukemia. POSTOPERATIVE DIAGNOSIS: PROCEDURE PERFORMED: Placement of right subclavian low-profile power compatible MediPort. ANESTHESIA: Total intravenous anesthesia with local using a mixture of 0.25% Marcaine and 1% lidocaine with epinephrine. INDICATIONS FOR PROCEDURE: The patient is a 70-year-old black male with lymphoma. He has a huge left neck mass. There has been some degree of noncompliance following up with Oncology and chemotherapy recommendations. He is inpatient currently and I have been consulted for MediPort placement for initiation of chemotherapy. DESCRIPTION OF OPERATION: Informed consent was obtained. The patient was taken to the operating room where total intravenous anesthesia was obtained with the patient in supine position. Right periclavicular area was prepped with ChloraPrep and draped in sterile fashion. Local anesthetic was infiltrated and a large-gauge needle was passed under the clavicle in the subclavian vein. Guidewire was passed through the needle and fluoroscopically confirmed to enter the superior vena cava. Additional local anesthetic was infiltrated and transverse incision was created based on needle insertion site. A subcutaneous pocket was dissected inferiorly. Introducer dilator was passed over the guidewire under fluoroscopic guidance. The guidewire and dilator were removed, and the catheter was passed through the introducer. The tip of the catheter was positioned at the atriocaval junction and the catheter was trimmed to the appropriate length and secured to the locking hub of the MediPort. The port was then placed in the subcutaneous pocket where it was secured to the pectoral fascia with 2 interrupted sutures of 3-0 Prolene. The incision was then closed in layers with 3-0 and 4-0 Monocryl. Additional local anesthetic was infiltrated. The port was cannulated with a Dean needle and it aspirated blood freely and was flushed with heparinized saline. Dermabond was placed externally on the skin incision. There were no complications. Blood loss was negligible. The patient tolerated the procedure well and was taken to recovery room in stable condition. FINDINGS: A low-profile port was selected secondary to his body habitus. This was placed uneventfully into the right subclavian. The procedure was performed under fluoroscopic guidance. There was essentially no blood loss and no complications. The patient tolerated the procedure well. The port was accessed at the end of the procedure, and a sterile dressing applied over the access needle. flushed appropriately with heparinized saline. Postprocedure x-rays document good position of the port and catheter. Job ID: [id number]
--- NOTE | 2020-02-01 07:16 | PDOC.HOSPP ---
- Subjective Encounter Date: 02/01/20 Encounter Time: 09:30 Subjective: Patient without new complaints. Mass in neck seems to press on throat and make swallowing difficult sometimes, but not at others. Pain well controlled right now. - Objective Vital Signs & Weight: Vital Signs (12 hours) Temp Pulse Resp BP Pulse Ox 02/01/20 03:39 97.0 F L 85 16 158/74 H 98 02/01/20 00:00 98.9 F 89 16 153/75 H 98 01/31/20 20:52 97 01/31/20 20:00 98.7 F 97 16 141/65 H 98 Weight Weight 156 lb I&O: 01/31/20 02/01/20 02/02/20 06:59 06:59 06:59 Intake Total 560 460 Output Total 1100 Balance -540 460 Result Diagrams: 01/30/20 04:01 02/01/20 03:30 Additional Labs: Accuchecks 01/31/20 08:43 POC Glucose 122 H Hospitalist ROS - Review of Systems Constitutional: denies: fever, chills Respiratory: denies: cough, shortness of breath Cardiovascular: denies: chest pain, palpitations Gastrointestinal: denies: nausea, vomiting, abdominal pain - Medication Medications: Active Medications Generic Name Dose Route Start Last Admin Trade Name Freq PRN Reason Stop Dose Admin Acetaminophen 650 mg 01/27/20 23:34 01/30/20 08:46 Acetaminophen 325 Mg Tab PO 650 mg Q4H PRN Administration Headache/Fever/Mild Pain (1-3) Allopurinol 100 mg 01/31/20 09:00 01/31/20 11:40 Allopurinol 100 Mg Tab PO 100 mg DAILY BERNA Administration Amlodipine Besylate 10 mg 01/30/20 09:00 01/31/20 11:40 Amlodipine 10 Mg Tab PO 10 mg DAILY BERNA Administration Aspirin 81 mg 01/29/20 09:00 01/31/20 11:40 Aspirin 81 Mg Enteric Coated Tablet PO 81 mg DAILY BERNA Administration Atorvastatin Calcium 20 mg 01/29/20 09:00 01/31/20 11:41 Atorvastatin Calcium 20 Mg Tab PO 20 mg DAILY BERNA Administration Clopidogrel Bisulfate 75 mg 01/29/20 09:00 01/31/20 11:41 Clopidogrel Bisulfate 75 Mg Tab PO 75 mg DAILY BERNA Administration Famotidine 20 mg 01/28/20 09:00 01/31/20 20:52 Famotidine 20 Mg Tab PO 20 mg BID BERNA Administration Hydralazine HCl 10 mg 01/28/20 09:06 01/28/20 18:55 Hydralazine 20 Mg/Ml Vial SLOW IVP 10 mg Q4H PRN Administration SBP > 185, DBP > 100 Sodium Chloride 1,000 mls @ 20 mls/hr 01/31/20 16:30 01/31/20 17:36 Normal Saline 0.9% IV 1,000 mls .Q24H BERNA Administration Labetalol HCl 20 mg 01/27/20 23:38 01/28/20 12:48 Labetalol Hcl 100 Mg/20 Ml Vial SLOW IVP 20 mg Q4H PRN Administration Hypertension Losartan Potassium 100 mg 01/31/20 09:00 01/31/20 11:41 Losartan 25 Mg Tab PO 100 mg DAILY BERNA Administration Prednisolone Acetate 1 drop 01/29/20 13:00 01/31/20 20:52 Prednisolone 1% Ophth Susp 5 Ml Bottle EA EYE 2 drp QID BERNA Administration Senna 2 tab 01/31/20 19:24 01/31/20 20:52 Senokot 8.6 Mg Tab PO 2 tab BIDPRN PRN Administration Constipation Sodium Chloride 10 ml 01/29/20 09:00 01/31/20 21:07 Flush - Normal Saline 10 Ml Syringe IVF Not Given Q12HR [facility] Sodium Chloride 1 gm 01/30/20 15:00 01/31/20 20:52 Sodium Chloride 1 Gm Tab PO 1 gm TID BERNA Administration Timolol Maleate 1 drop 01/29/20 09:00 01/31/20 20:52 Timolol 0.5% Ophth Soln 5 Ml Bottle L EYE 1 drop BID BERNA Administration Tramadol HCl 50 mg 01/29/20 19:45 01/30/20 23:21 Tramadol Hcl 50 Mg Tab PO 50 mg Q4H PRN Administration Moderate Pain (4-6) Tramadol HCl 100 mg 01/29/20 19:45 02/01/20 03:40 Tramadol Hcl 50 Mg Tab PO 100 mg Q4H PRN Administration Severe Pain (7-10) - Exam General Appearance: NAD, awake alert ENT: moist mucosa ENT - other findings: large, hard mass to left throat/neck. Heart: RRR, no murmur, no gallops, no rubs Respiratory: CTAB, no wheezes, no rales, no ronchi Gastrointestinal: soft, non-tender, non-distended, normal bowel sounds Psychiatric: normal affect, normal behavior, A&O x 3 Hosp A/P (1) Hypertensive urgency Code(s): I16.0 - HYPERTENSIVE URGENCY Status: Acute (2) Hyponatremia Code(s): E87.1 - HYPO-OSMOLALITY AND HYPONATREMIA Status: Acute (3) CLL (chronic lymphocytic leukemia) Code(s): C91.10 - CHRONIC LYMPHOCYTIC LEUK OF B-CELL TYPE NOT ACHIEVE REMIS Status: Chronic (4) Peripheral vascular disease Code(s): I73.9 - PERIPHERAL VASCULAR DISEASE, UNSPECIFIED Status: Chronic - Plan Hypertensive urgency-resolved Patient's symptoms are improved. Initiated his home losartan at an increased dose of 50 mg. Started amlodipine 10 mg. BP improved, though goes up when in pain from cancer. 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 Improving with salt tablets and fluid restriction. CLL with large left neck mass: Patient has substantial lymphadenopathy in the left neck creating a significant mass. Previous imaging did not show any compromise of the carotid that might be contributing to his hypertension. Worsening pain and symptoms. Patient has had p oor outpatient f/u. Mediport placed and initiating chemo in the hospital. Allopurinol for possible tumor lysis syndrome. 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 Cannot care for self at home. Case management to w [facility] on safe d/c plan. Plan is for daughter to take him home once discharged.
--- NOTE | 2020-02-01 08:18 | PDOC.MOPN ---
Interval History: His pain is well controlled, mass is stable this wek but has obviously grown in the last month. No n/v. He is still able to swallow - Vital Signs Vital Signs: Vital Signs (12 hours) Temp Pulse Resp BP Pulse Ox 02/01/20 03:39 97.0 F L 85 16 158/74 H 98 02/01/20 00:00 98.9 F 89 16 153/75 H 98 01/31/20 20:52 97 Weight Weight 156 lb - Physical Exam General: Alert, No acute distress HEENT: Mucous membr. moist/pink, Other (Large L neck mass with smaller LAD on R neck as well) Lungs: Clear to auscultation Cardiovascular: Regular rate Abdomen: Normal bowel sounds Extremities: No clubbing Neurological: Normal speech Psych/Mental Status: Mental status NL - Labs Result Diagrams: 01/30/20 04:01 02/01/20 03:30 Lab results: Laboratory Results - last 24 hr 02/01/20 03:30: Sodium 130 L, Potassium 3.7, Chloride 99, Carbon Dioxide 19 L, Anion Gap 16, BUN 21, Creatinine 0.76, Estimated GFR (MDRD) Greater than 90, Glucose 98, Calcium 8.6, Phosphorus 2.6, Total Bilirubin 0.7, AST 24, ALT 8, Alkaline Phosphatase 90, Serum Total Protein 6.2, Albumin 3.4, Globulin 2.8, Albumin/Globulin Ratio 1.2 01/31/20 11:43: Sodium 127 L, Potassium 3.8, Chloride 97 L, Carbon Dioxide 17 L, Anion Gap 17, BUN 20, Creatinine 0.87, Estimated GFR (MDRD) Greater than 90, Glucose 93, Calcium 8.5 01/31/20 08:43: POC Glucose 122 H A/P - Problem (1) Large cell (diffuse) non-Hodgkin's lymphoma Current Visit: Yes Code(s): C83.30 - DIFFUSE LARGE B-CELL LYMPHOMA, UNSPECIFIED SITE Status: Acute (2) Sudden visual loss, left eye Current Visit: No Code(s): H53.132 - SUDDEN VISUAL LOSS, LEFT EYE Status: Acute (3) CLL (chronic lymphocytic leukemia) Current Visit: No Code(s): C91.10 - CHRONIC LYMPHOCYTIC LEUK OF B-CELL TYPE NOT ACHIEVE REMIS Status: Chronic - Plan Plan: 1. CHOP-R today 2. cont IVF and allopurinol 3. follow electrolytes 4. anti-emetics
[2020-02-01] MEDS: Losartan 25 MG TAB PO SCH (08:55)
[2020-02-01] MEDS: Atorvastatin Calcium 20 MG TAB PO SCH (08:56)
[2020-02-01] MEDS: Clopidogrel Bisulfate 75 MG TAB PO SCH (08:56)
[2020-02-01] MEDS: Sodium Chloride 1 GM TAB PO SCH ×3 (08:56→20:32)
[2020-02-01] MEDS: Aspirin 81 mg Enteric Coated Tablet PO SCH (08:56)
[2020-02-01] MEDS: Famotidine 20 MG TAB PO SCH ×2 (08:56→20:32)
[2020-02-01] MEDS: Allopurinol 100 MG TAB PO SCH (09:01)
[2020-02-01] MEDS: Amlodipine 10 MG TAB PO SCH (09:01)
[2020-02-01] MEDS: Timolol 0.5% Ophth Soln 5 ml Bottle L EYE SCH ×2 (09:01→20:37)
[2020-02-01] MEDS: prednisoLONE 1% Ophth Susp 5 ml Bottle EA EYE SCH ×4 (09:01→20:36)
[2020-02-01] MEDS ORDERED: CYCLOPHOSPHAMIDE IVPB SCH (09:15)
[2020-02-01] MEDS ORDERED: SODIUM CHLORIDE 0.9% IVPB SCH ×2 (09:15)
[2020-02-01] MEDS ORDERED: PALONOSETRON HCL 0.05 MG/ML 5 ML VIAL IVP SCH (09:15)
[2020-02-01] MEDS ORDERED: Dexamethasone 20 MG in Sodium Chloride 0.9% 50 ML IVPB SCH (09:15)
[2020-02-01] MEDS ORDERED: Pegfilgrastim Onpro 6 MG/0.6 ML SQ SCH (09:15)
[2020-02-01] MEDS ORDERED: diphenhydrAMINE 50 MG in Sodium Chloride 0.9% 50 ML IVPB SCH (09:15)
[2020-02-01] MEDS ORDERED: DOXORUBICIN IVPB SCH (09:15)
[2020-02-01] MEDS ORDERED: Acetaminophen 500 MG TAB PO SCH (09:15)
[2020-02-01] MEDS ORDERED: ADMIXTURE FEE IVPB SCH (09:30)
[2020-02-01] MEDS ORDERED: VINCRISTINE SULFATE IVPB SCH (09:30)
--- NOTE | 2020-02-01 09:30 | PDOC.NEPPN ---
- Subjective Encounter Date: 02/01/20 Encounter Time: 09:27 Subjective: Seen in follow up for Hyponatremia. No new problem. For initiation of chemotherapy today. - Objective Vital Signs & Weight: Vital Signs (12 hours) Temp Pulse Resp BP Pulse Ox 02/01/20 09:01 85 02/01/20 08:00 99.0 F 89 18 130/66 98 02/01/20 03:39 97.0 F L 85 16 158/74 H 98 02/01/20 00:00 98.9 F 89 16 153/75 H 98 Weight Weight 156 lb I&O: 01/31/20 02/01/20 02/02/20 06:59 06:59 06:59 Intake Total 560 460 Output Total 1100 Balance -540 460 Result Diagrams: 01/30/20 04:01 02/01/20 03:30 Nephrology ROS - Medication Medications: Active Medications Generic Name Dose Route Start Last Admin Trade Name Freq PRN Reason Stop Dose Admin Acetaminophen 650 mg 01/27/20 23:34 01/30/20 08:46 Acetaminophen 325 Mg Tab PO 650 mg Q4H PRN Administration Headache/Fever/Mild Pain (1-3) Allopurinol 100 mg 01/31/20 09:00 02/01/20 09:01 Allopurinol 100 Mg Tab PO 100 mg DAILY BERNA Administration Amlodipine Besylate 10 mg 01/30/20 09:00 02/01/20 09:01 Amlodipine 10 Mg Tab PO 10 mg DAILY BERNA Administration Aspirin 81 mg 01/29/20 09:00 02/01/20 08:56 Aspirin 81 Mg Enteric Coated Tablet PO 81 mg DAILY BERNA Administration Atorvastatin Calcium 20 mg 01/29/20 09:00 02/01/20 08:56 Atorvastatin Calcium 20 Mg Tab PO 20 mg DAILY BERNA Administration Clopidogrel Bisulfate 75 mg 01/29/20 09:00 02/01/20 08:56 Clopidogrel Bisulfate 75 Mg Tab PO 75 mg DAILY BERNA Administration Famotidine 20 mg 01/28/20 09:00 02/01/20 08:56 Famotidine 20 Mg Tab PO 20 mg BID BERNA Administration Hydralazine HCl 10 mg 01/28/20 09:06 01/28/20 18:55 Hydralazine 20 Mg/Ml Vial SLOW IVP 10 mg Q4H PRN Administration SBP > 185, DBP > 100 Labetalol HCl 20 mg 01/27/20 23:38 01/28/20 12:48 Labetalol Hcl 100 Mg/20 Ml Vial SLOW IVP 20 mg Q4H PRN Administration Hypertension Losartan Potassium 100 mg 01/31/20 09:00 02/01/20 08:55 Losartan 25 Mg Tab PO 100 mg DAILY BERNA Administration Prednisolone Acetate 1 drop 01/29/20 13:00 02/01/20 09:01 Prednisolone 1% Ophth Susp 5 Ml Bottle EA EYE 1 drp QID BERNA Administration Senna 2 tab 01/31/20 19:24 01/31/20 20:52 Senokot 8.6 Mg Tab PO 2 tab BIDPRN PRN Administration Constipation Sodium Chloride 10 ml 01/29/20 09:00 02/01/20 08:57 Flush - Normal Saline 10 Ml Syringe IVF 10 ml Q12HR BERNA Administration Sodium Chloride 1 gm 01/30/20 15:00 02/01/20 08:56 Sodium Chloride 1 Gm Tab PO 1 gm TID BERNA Administration Timolol Maleate 1 drop 01/29/20 09:00 02/01/20 09:01 Timolol 0.5% Ophth Soln 5 Ml Bottle L EYE 1 drop BID BERNA Administration Tramadol HCl 50 mg 01/29/20 19:45 01/30/20 23:21 Tramadol Hcl 50 Mg Tab PO 50 mg Q4H PRN Administration Moderate Pain (4-6) Tramadol HCl 100 mg 01/29/20 19:45 02/01/20 03:40 Tramadol Hcl 50 Mg Tab PO 100 mg Q4H PRN Administration Severe Pain (7-10) - Exam General Appearance: awake alert Eye: anicteric sclera ENT: normocephalic atraumatic Neck - other findings: Left sided neck mass with some deformity noted Respiratory: no wheezes, no rales, no ronchi, normal chest expansion Cardiovascular: RRR Gastrointestinal: soft, non-tender, non-distended, normal bowel sounds Extremities: no edema Neurological: CN's grossly intact, no focal deficits PSYCH: A&O x 3 Nephrology Results - Labs Result Diagrams: 01/30/20 04:01 02/01/20 03:30 Lab results: WBC 8.7 thou/uL (4.8-10.8) 01/30/20 04:01 Hgb 13.6 g/dL (14.0-18.0) L 01/30/20 04:01 Hct 39.9 % (42.0-52.0) L 01/30/20 04:01 MCV 84.1 fL (78.0-98.0) 01/30/20 04:01 Plt Count 198 thou/uL (130-400) 01/30/20 04:01 Neutrophils % 52.0 % (42.0-75.0) 01/30/20 04:01 Sodium 130 mmol/L (136-145) L 02/01/20 03:30 Potassium 3.7 mmol/L (3.5-5.1) 02/01/20 03:30 Chloride 99 mmol/L (98-107) 02/01/20 03:30 Carbon Dioxide 19 mmol/L (23-31) L 02/01/20 03:30 BUN 21 mg/dL (8.4-25.7) 02/01/20 03:30 Creatinine 0.76 mg/dL (0.7-1.3) 02/01/20 03:30 Glucose 98 mg/dL (83-110) 02/01/20 03:30 Calcium 8.6 mg/dL (7.8-10.44) 02/01/20 03:30 Total Bilirubin 0.7 mg/dL (0.2-1.2) 02/01/20 03:30 AST 24 U/L (5-34) 02/01/20 03:30 ALT 8 U/L (8-55) 02/01/20 03:30 Alkaline Phosphatase 90 U/L (40-110) 02/01/20 03:30 Troponin I 0.027 ng/mL (< 0.028) 01/28/20 09:52 B-Natriuretic Peptide 210.5 pg/mL (0-100) H 01/27/20 21:34 Serum Total Protein 6.2 g/dL (5.8-8.1) 02/01/20 03:30 Albumin 3.4 g/dL (3.4-4.8) 02/01/20 03:30 Urine Ketones 10 mg/dL (Negative) A 01/30/20 12:28 Urine Blood Trace (Negative) A 01/30/20 12:28 Urine Nitrite Negative (Negative) 01/30/20 12:28 Ur Leukocyte Esterase Negative Orlin/uL (Negative) 01/30/20 12:28 Urine RBC 7-10 HPF (0-3) A 01/30/20 12:28 Urine WBC 0-3 HPF (0-3) 01/30/20 12:28 Ur Squamous Epith Cells 0-3 HPF (0-3) 01/30/20 12:28 Urine Bacteria None Seen HPF (None Seen) 01/30/20 12:28 Sodium 130 mmol/L (136-145) L 02/01/20 03:30 Potassium 3.7 mmol/L (3.5-5.1) 02/01/20 03:30 Chloride 99 mmol/L (98-107) 02/01/20 03:30 Carbon Dioxide 19 mmol/L (23-31) L 02/01/20 03:30 Anion Gap 16 mmol/L (10-20) 02/01/20 03:30 BUN 21 mg/dL (8.4-25.7) 02/01/20 03:30 Creatinine 0.76 mg/dL (0.7-1.3) 02/01/20 03:30 Glucose 98 mg/dL (83-110) 02/01/20 03:30 Calcium 8.6 mg/dL (7.8-10.44) 02/01/20 03:30 Phosphorus 2.6 mg/dL (2.3-4.7) 02/01/20 03:30 Albumin 3.4 g/dL (3.4-4.8) 02/01/20 03:30 Nephrology AP PN - Plan 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 Sodium is trending up with salt tablet. 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 HTN: Control acceptable. Lymphoma. For Chemotherapy today. High risk for TLS. Plan Will start NS at 125 for TLS prevenetion. Continue salt tablet Continue allopurinol. Will consider tolvaptan if hyponatremia worsens with NS therapy. Monitor electrolyte. Start nutritional supplementation
[2020-02-01] MEDS: Sodium Chloride 0.9% 1,000 ML IV SCH ×2 (09:41→16:34)
[2020-02-01] MEDS ORDERED: vinCRIStine Sulfate 2 MG in Sodium Chloride 0.9% 50 ML IVPB SCH (09:45)
[2020-02-01] MEDS: Senokot 8.6 MG TAB PO PRN (12:09)
[2020-02-01] MEDS ORDERED: Haloperidol Lactate 5 MG/ML VIAL IVPB SCH ×2 (18:30→18:45)
[2020-02-01] MEDS ORDERED: Haloperidol Lactate 5 MG/ML VIAL SLOW IVP PRN (23:59)
[2020-02-02] MEDS: Sodium Chloride 0.9% 1,000 ML IV SCH ×3 (04:30→13:04)
[2020-02-02 05:43] LABS: ALT (SGPT) 20 U/L (8-55); AST (SGOT) 49 U/L (5-34); Albumin 3.4 g/dL (3.4-4.8); Alkaline Phosphatase 187 U/L (40-110); Anion Gap 16 mmol/L (10-20); BUN (Urea Nitrogen) 17 mg/dL (8.4-25.7); Bilirubin, Total 0.9 mg/dL (0.2-1.2); Calc. Creatinine Clearance 84 mL/min (70-130); Calcium 8.1 mg/dL (7.8-10.44); Carbon Dioxide 20 mmol/L (23-31); Chloride 101 mmol/L (98-107); Estimated GFR-MDRD Greater than 90; Globulin 2.9 g/dL (2.4-3.5); Glucose 214 mg/dL (83-110); Phosphorus 2.5 mg/dL (2.3-4.7); Potassium 3.6 mmol/L (3.5-5.1); Protein, Total 6.3 g/dL (5.8-8.1); Sodium 133 mmol/L (136-145); Uric Acid 4.1 mg/dL (3.5-7.2)
--- NOTE | 2020-02-02 07:04 | EKG ---
Test Reason : POSTOP Blood Pressure : / mmHG Vent. Rate : 082 BPM Atrial Rate : 082 BPM P-R Int : 080 ms QRS Dur : 072 ms QT Int : 392 ms P-R-T Axes : 009 020 042 degrees QTc Int : 457 ms Sinus rhythm with short LA Minimal voltage criteria for LVH, may be normal variant Borderline ECG When compared with ECG of 27-JAN-2020 20:01, (Unconfirmed) No significant change was found Confirmed by CHANA MOORE MD ([id number]) on 02/02/2020 7:04:37 AM Referred By: KEVIN Confirmed By:CHANA MOORE MD
--- NOTE | 2020-02-02 07:15 | PDOC.HOSPP ---
- Subjective Encounter Date: 02/02/20 Encounter Time: 10:00 Subjective: Patient had some AMS and aggression last night, resolved this morning. Thinks his tumor is a little less tight this AM. Tumor had pushed his cheek into his mouth where it was gnawed on by his gums posteriorly and a bit sore. - Objective Vital Signs & Weight: Vital Signs (12 hours) Temp Pulse Resp BP BP BP Pulse Ox 02/02/20 07:06 98.8 F 90 20 140/68 100 02/02/20 04:00 98.5 F 93 20 135/86 99 02/01/20 20:37 107 H 131/68 02/01/20 20:00 99.0 F 107 H 16 131/68 96 Weight Weight 156 lb I&O: 02/01/20 02/02/20 02/03/20 06:59 06:59 06:59 Intake Total 460 2080 240 Output Total 450 Balance 460 1630 240 Result Diagrams: 01/30/20 04:01 02/02/20 05:07 Hospitalist ROS - Review of Systems Constitutional: denies: fever, chills Respiratory: denies: cough, shortness of breath Cardiovascular: denies: chest pain, palpitations Gastrointestinal: denies: nausea, vomiting, abdominal pain - Medication Medications: Active Medications Generic Name Dose Route Start Last Admin Trade Name Freq PRN Reason Stop Dose Admin Acetaminophen 650 mg 01/27/20 23:34 01/30/20 08:46 Acetaminophen 325 Mg Tab PO 650 mg Q4H PRN Administration Headache/Fever/Mild Pain (1-3) Allopurinol 100 mg 01/31/20 09:00 02/01/20 09:01 Allopurinol 100 Mg Tab PO 100 mg DAILY BERNA Administration Amlodipine Besylate 10 mg 01/30/20 09:00 02/01/20 09:01 Amlodipine 10 Mg Tab PO 10 mg DAILY BERNA Administration Aspirin 81 mg 01/29/20 09:00 02/01/20 08:56 Aspirin 81 Mg Enteric Coated Tablet PO 81 mg DAILY BERNA Administration Atorvastatin Calcium 20 mg 01/29/20 09:00 02/01/20 08:56 Atorvastatin Calcium 20 Mg Tab PO 20 mg DAILY BERNA Administration Clopidogrel Bisulfate 75 mg 01/29/20 09:00 02/01/20 08:56 Clopidogrel Bisulfate 75 Mg Tab PO 75 mg DAILY BERNA Administration Famotidine 20 mg 01/28/20 09:00 02/01/20 20:32 Famotidine 20 Mg Tab PO 20 mg BID BERNA Administration Hydralazine HCl 10 mg 01/28/20 09:06 01/28/20 18:55 Hydralazine 20 Mg/Ml Vial SLOW IVP 10 mg Q4H PRN Administration SBP > 185, DBP > 100 Sodium Chloride 1,000 mls @ 125 mls/hr 02/01/20 09:26 02/02/20 05:14 Normal Saline 0.9% IV 1,000 mls .Q8H BERNA Administration Labetalol HCl 20 mg 01/27/20 23:38 01/28/20 12:48 Labetalol Hcl 100 Mg/20 Ml Vial SLOW IVP 20 mg Q4H PRN Administration Hypertension Losartan Potassium 100 mg 01/31/20 09:00 02/01/20 08:55 Losartan 25 Mg Tab PO 100 mg DAILY BERNA Administration Prednisolone Acetate 1 drop 01/29/20 13:00 02/01/20 20:36 Prednisolone 1% Ophth Susp 5 Ml Bottle EA EYE 1 drp QID BERNA Administration Senna 2 tab 01/31/20 19:24 02/01/20 12:09 Senokot 8.6 Mg Tab PO 2 tab BIDPRN PRN Administration Constipation Sodium Chloride 10 ml 01/29/20 09:00 02/01/20 20:36 Flush - Normal Saline 10 Ml Syringe IVF 10 ml Q12HR BERNA Administration Sodium Chloride 1 gm 01/30/20 15:00 02/01/20 20:32 Sodium Chloride 1 Gm Tab PO 1 gm TID BERNA Administration Timolol Maleate 1 drop 01/29/20 09:00 02/01/20 20:37 Timolol 0.5% Ophth Soln 5 Ml Bottle L EYE 1 drop BID BERNA Administration Tramadol HCl 50 mg 01/29/20 19:45 01/30/20 23:21 Tramadol Hcl 50 Mg Tab PO 50 mg Q4H PRN Administration Moderate Pain (4-6) Tramadol HCl 100 mg 01/29/20 19:45 02/01/20 03:40 Tramadol Hcl 50 Mg Tab PO 100 mg Q4H PRN Administration Severe Pain (7-10) - Exam General Appearance: NAD, awake alert ENT: moist mucosa Heart: RRR, no murmur, no gallops, no rubs Respiratory: CTAB, no wheezes, no rales, no ronchi Gastrointestinal: soft, non-tender, non-distended, normal bowel sounds Psychiatric: normal affect, normal behavior Hosp A/P (1) Acute metabolic encephalopathy Code(s): G93.41 - METABOLIC ENCEPHALOPATHY Status: Acute (2) Hypertensive urgency Code(s): I16.0 - HYPERTENSIVE URGENCY Status: Resolved (3) Hyponatremia Code(s): E87.1 - HYPO-OSMOLALITY AND HYPONATREMIA Status: Acute (4) CLL (chronic lymphocytic leukemia) Code(s): C91.10 - CHRONIC LYMPHOCYTIC LEUK OF B-CELL TYPE NOT ACHIEVE REMIS Status: Chronic (5) Peripheral vascular disease Code(s): I73.9 - PERIPHERAL VASCULAR DISEASE, UNSPECIFIED Status: Chronic (6) HTN (hypertension) Code(s): I10 - ESSENTIAL (PRIMARY) HYPERTENSION Status: Chronic - Plan Hypertensive urgency-resolved Patient's symptoms are improved. Initiated his home losartan at an increased dose of 50 mg. Started amlodipine 10 mg. BP improved, though goes up when in pain from cancer. 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 Improving with salt tablets and fluid restriction. CLL with large left neck mass: Patient has substantial lymphadenopathy in the left neck creating a significant mass. Previous imaging did not show any compromise of the carotid that might be contributing to his hypertension. Worsening pain and symptoms. Patient has had poor outpatient f/u. Mediport placed and initiating chemo in the hospital. Al lopurinol for possible tumor lysis syndrome. AMS: Patient a little confused and combative last night. Not certain if related to chemotherapy or prolonged hospital stay. Haldol prn. Better now. 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 Cannot care for self at home. Case management to work on safe d/c plan. Plan is for daughter to take him home once discharged. PT eval with patient unsteady on feet, likely needs rehab first.
[2020-02-02] MEDS: predniSONE 50 MG TAB PO SCH (09:18)
[2020-02-02] MEDS: Sodium Chloride 1 GM TAB PO SCH ×3 (09:19→20:12)
[2020-02-02] MEDS: Clopidogrel Bisulfate 75 MG TAB PO SCH (09:19)
[2020-02-02] MEDS: Atorvastatin Calcium 20 MG TAB PO SCH (09:19)
[2020-02-02] MEDS: Aspirin 81 mg Enteric Coated Tablet PO SCH (09:19)
[2020-02-02] MEDS: Amlodipine 10 MG TAB PO SCH (09:19)
[2020-02-02] MEDS: Allopurinol 100 MG TAB PO SCH (09:19)
[2020-02-02] MEDS: Famotidine 20 MG TAB PO SCH (09:19)
[2020-02-02] MEDS: Losartan 25 MG TAB PO SCH (09:19)
[2020-02-02] MEDS ORDERED: Aluminum & Magnesium Hydroxide 60 ML, Lidocaine 2% Viscous Solution 30 ML, diphenhydrAM... SSW PRN (09:24)
[2020-02-02] MEDS: prednisoLONE 1% Ophth Susp 5 ml Bottle EA EYE SCH ×4 (09:52→20:13)
[2020-02-02] MEDS: Timolol 0.5% Ophth Soln 5 ml Bottle L EYE SCH ×2 (09:52→20:13)
--- NOTE | 2020-02-02 13:37 | PDOC.NEPPN ---
- Subjective Encounter Date: 02/02/20 Subjective: Seen in Follow up for hyponatremia. Started on chemotherapy yesterday . Feeling better with improving oral intake. No fever, nausea or vomiting. - Objective Vital Signs & Weight: Vital Signs (12 hours) Temp Pulse Resp BP BP Pulse Ox 02/02/20 09:52 90 02/02/20 09:19 90 02/02/20 07:06 98.8 F 90 20 140/68 100 02/02/20 04:00 98.5 F 93 20 135/86 99 Weight Weight 156 lb I&O: 02/01/20 02/02/20 02/03/20 06:59 06:59 06:59 Intake Total 460 2080 240 Output Total 450 Balance 460 1630 240 Result Diagrams: 01/30/20 04:01 02/02/20 05:07 Nephrology ROS - Medication Medications: Active Medications Generic Name Dose Route Start Last Admin Trade Name Freq PRN Reason Stop Dose Admin Acetaminophen 650 mg 01/27/20 23:34 01/30/20 08:46 Acetaminophen 325 Mg Tab PO 650 mg Q4H PRN Administration Headache/Fever/Mild Pain (1-3) Allopurinol 100 mg 01/31/20 09:00 02/02/20 09:19 Allopurinol 100 Mg Tab PO 100 mg DAILY BERNA Administration Amlodipine Besylate 10 mg 01/30/20 09:00 02/02/20 09:19 Amlodipine 10 Mg Tab PO 10 mg DAILY BERNA Administration Aspirin 81 mg 01/29/20 09:00 02/02/20 09:19 Aspirin 81 Mg Enteric Coated Tablet PO 81 mg DAILY BERNA Administration Atorvastatin Calcium 20 mg 01/29/20 09:00 02/02/20 09:19 Atorvastatin Calcium 20 Mg Tab PO 20 mg DAILY BERNA Administration Clopidogrel Bisulfate 75 mg 01/29/20 09:00 02/02/20 09:19 Clopidogrel Bisulfate 75 Mg Tab PO 75 mg DAILY BERNA Administration Hydralazine HCl 10 mg 01/28/20 09:06 01/28/20 18:55 Hydralazine 20 Mg/Ml Vial SLOW IVP 10 mg Q4H PRN Administration SBP > 185, DBP > 100 Sodium Chloride 1,000 mls @ 125 mls/hr 02/01/20 09:26 02/02/20 13:04 Normal Saline 0.9% IV 1,000 mls .Q8H BERNA Administration Labetalol HCl 20 mg 01/27/20 23:38 01/28/20 12:48 Labetalol Hcl 100 Mg/20 Ml Vial SLOW IVP 20 mg Q4H PRN Administration Hypertension Losartan Potassium 100 mg 01/31/20 09:00 02/02/20 09:19 Losartan 25 Mg Tab PO 100 mg DAILY BERNA Administration Pantoprazole Sodium 40 mg 02/02/20 11:45 02/02/20 13:06 Pantoprazole 40 Mg Tab PO 02/02/20 14:00 40 mg NOW BERNA Administration Prednisolone Acetate 1 drop 01/29/20 13:00 02/02/20 13:04 Prednisolone 1% Ophth Susp 5 Ml Bottle EA EYE 1 drp QID BERNA Administration Prednisone 100 mg 02/02/20 08:00 02/02/20 09:18 Prednisone 50 Mg Tab PO 02/05/20 08:01 100 mg QAM-WM BERNA Administration Senna 2 tab 01/31/20 19:24 02/01/20 12:09 Senokot 8.6 Mg Tab PO 2 tab BIDPRN PRN Administration Constipation Sodium Chloride 10 ml 01/29/20 09:00 02/02/20 09:20 Flush - Normal Saline 10 Ml Syringe IVF 10 ml Q12HR BERNA Administration Sodium Chloride 1 gm 01/30/20 15:00 02/02/20 09:19 Sodium Chloride 1 Gm Tab PO 1 gm TID BERNA Administration Timolol Maleate 1 drop 01/29/20 09:00 02/02/20 09:52 Timolol 0.5% Ophth Soln 5 Ml Bottle L EYE 1 drop BID BERNA Administration Tramadol HCl 50 mg 01/29/20 19:45 01/30/20 23:21 Tramadol Hcl 50 Mg Tab PO 50 mg Q4H PRN Administration Moderate Pain (4-6) Tramadol HCl 100 mg 01/29/20 19:45 02/01/20 03:40 Tramadol Hcl 50 Mg Tab PO 100 mg Q4H PRN Administration Severe Pain (7-10) - Exam General Appearance: awake alert Eye: anicteric sclera ENT: normocephalic atraumatic, moist mucosa Neck - other findings: Left large neck mass with some deformity Respiratory: CTAB Cardiovascular: RRR Gastrointestinal: soft, non-tender, non-distended, normal bowel sounds Extremities: no cyanosis, no edema Neurological: CN's grossly intact, no focal deficits PSYCH: A&O x 3 Nephrology Results - Labs Result Diagrams: 01/30/20 04:01 02/02/20 05:07 Lab results: WBC 8.7 thou/uL (4.8-10.8) 01/30/20 04:01 Hgb 13.6 g/dL (14.0-18.0) L 01/30/20 04:01 Hct 39.9 % (42.0-52.0) L 01/30/20 04:01 MCV 84.1 fL (78.0-98.0) 01/30/20 04:01 Plt Count 198 thou/uL (130-400) 01/30/20 04:01 Neutrophils % 52.0 % (42.0-75.0) 01/30/20 04:01 Sodium 133 mmol/L (136-145) L 02/02/20 05:07 Potassium 3.6 mmol/L (3.5-5.1) 02/02/20 05:07 Chloride 101 mmol/L (98-107) 02/02/20 05:07 Carbon Dioxide 20 mmol/L (23-31) L 02/02/20 05:07 BUN 17 mg/dL (8.4-25.7) 02/02/20 05:07 Creatinine 0.81 mg/dL (0.7-1.3) 02/02/20 05:07 Glucose 214 mg/dL (83-110) H 02/02/20 05:07 Calcium 8.1 mg/dL (7.8-10.44) 02/02/20 05:07 Total Bilirubin 0.9 mg/dL (0.2-1.2) 02/02/20 05:07 AST 49 U/L (5-34) H 02/02/20 05:07 ALT 20 U/L (8-55) 02/02/20 05:07 Alkaline Phosphatase 187 U/L (40-110) H 02/02/20 05:07 Troponin I 0.027 ng/mL (< 0.028) 01/28/20 09:52 B-Natriuretic Peptide 210.5 pg/mL (0-100) H 01/27/20 21:34 Serum Total Protein 6.3 g/dL (5.8-8.1) 02/02/20 05:07 Albumin 3.4 g/dL (3.4-4.8) 02/02/20 05:07 Urine Ketones 10 mg/dL (Negative) A 01/30/20 12:28 Urine Blood Trace (Negative) A 01/30/20 12:28 Urine Nitrite Negative (Negative) 01/30/20 12:28 Ur Leukocyte Esterase Negative Orlin/uL (Negative) 01/30/20 12:28 Urine RBC 7-10 HPF (0-3) A 01/30/20 12:28 Urine WBC 0-3 HPF (0-3) 01/30/20 12:28 Ur Squamous Epith Cells 0-3 HPF (0-3) 01/30/20 12:28 Urine Bacteria None Seen HPF (None Seen) 01/30/20 12:28 Sodium 133 mmol/L (136-145) L 02/02/20 05:07 Potassium 3.6 mmol/L (3.5-5.1) 02/02/20 05:07 Chloride 101 mmol/L (98-107) 02/02/20 05:07 Carbon Dioxide 20 mmol/L (23-31) L 02/02/20 05:07 Anion Gap 16 mmol/L (10-20) 02/02/20 05:07 BUN 17 mg/dL (8.4-25.7) 02/02/20 05:07 Creatinine 0.81 mg/dL (0.7-1.3) 02/02/20 05:07 Glucose 214 mg/dL (83-110) H 02/02/20 05:07 Calcium 8.1 mg/dL (7.8-10.44) 02/02/20 05:07 Phosphorus 2.5 mg/dL (2.3-4.7) 02/02/20 05:07 Albumin 3.4 g/dL (3.4-4.8) 02/02/20 05:07 Nephrology AP PN - Plan 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 Sodium is trending up with salt tablet. 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 HTN: Control acceptable. Lymphoma. For Chemotherapy today. High risk for TLS. Abnormal LFT. new onset. Due to chemotherapy most likely Plan Continue NS at 125 and allopurinol for TLS prevenetion. Continue salt tablet Monitor electrolyte and renal function
[2020-02-02] MEDS: Senokot 8.6 MG TAB PO PRN (17:09)
[2020-02-02] MEDS ORDERED: PEGFILGRASTIM-JMDB 6 MG/0.6 ML SYRINGE SQ SCH (23:00)
[2020-02-03] MEDS: Sodium Chloride 0.9% 1,000 ML IV SCH ×2 (01:21→12:06)
[2020-02-03 07:03] LABS: Band 27 % (5-11); Lymphocytes 2 % (21-51); MDiff Complete? YES; Mean Corpuscular HGB CONC 34.9 g/dL (32.0-36.0); Mean Corpuscular Hemoglobin 29.7 pg (27.0-31.0); Mean Corpuscular Volume 85.2 fL (78.0-98.0); Mean Platelet Volume 8.9 fL (7.4-10.4); Neutrophil 71 % (42-75); Platelet Count 97 thou/uL (130-400); Platelet Morphology Comment Appears Decreased; RBC Distribution Width 12.4 % (11.5-14.5); Red Blood Cell (RBC) Count 3.38 mill/uL (4.70-6.10)
[2020-02-03 07:09] LABS: ALT (SGPT) 23 U/L (8-55); AST (SGOT) 31 U/L (5-34); Alkaline Phosphatase 136 U/L (40-110); Anion Gap 13 mmol/L (10-20); BUN (Urea Nitrogen) 11 mg/dL (8.4-25.7); Bilirubin, Total 0.4 mg/dL (0.2-1.2); Calc. Creatinine Clearance 96 mL/min (70-130); Calcium 8.2 mg/dL (7.8-10.44); Carbon Dioxide 21 mmol/L (23-31); Chloride 103 mmol/L (98-107); Estimated GFR-MDRD Greater than 90; Globulin 2.7 g/dL (2.4-3.5); Glucose 104 mg/dL (83-110); Phosphorus 2.1 mg/dL (2.3-4.7); Potassium 3.4 mmol/L (3.5-5.1); Protein, Total 5.7 g/dL (5.8-8.1); Sodium 134 mmol/L (136-145); Uric Acid 4.1 mg/dL (3.5-7.2)
--- NOTE | 2020-02-03 07:25 | PDOC.HOSPP ---
- Subjective Encounter Date: 02/03/20 Encounter Time: 08:30 Subjective: Patient without complaints. Thinks his tumor is a bit smaller. - Objective Vital Signs & Weight: Vital Signs (12 hours) Temp Pulse Resp BP BP BP Pulse Ox 02/03/20 04:00 97.9 F 90 16 130/68 100 02/03/20 00:00 98 F 92 16 136/72 100 02/02/20 20:13 94 137/70 02/02/20 20:00 97.7 F 94 16 137/70 100 Weight Weight 156 lb I&O: 02/02/20 02/03/20 02/04/20 06:59 06:59 06:59 Intake Total 2080 1490 Output Total 450 Balance 1630 1490 Result Diagrams: 02/03/20 06:35 02/03/20 06:35 Hospitalist ROS - Review of Systems Constitutional: denies: fever, chills Respiratory: denies: cough, shortness of breath Cardiovascular: denies: chest pain, palpitations Gastrointestinal: denies: nausea, vomiting, abdominal pain - Medication Medications: Active Medications Generic Name Dose Route Start Last Admin Trade Name Freq PRN Reason Stop Dose Admin Acetaminophen 650 mg 01/27/20 23:34 01/30/20 08:46 Acetaminophen 325 Mg Tab PO 650 mg Q4H PRN Administration Headache/Fever/Mild Pain (1-3) Allopurinol 100 mg 01/31/20 09:00 02/02/20 09:19 Allopurinol 100 Mg Tab PO 100 mg DAILY BERNA Administration Amlodipine Besylate 10 mg 01/30/20 09:00 02/02/20 09:19 Amlodipine 10 Mg Tab PO 10 mg DAILY BERNA Administration Aspirin 81 mg 01/29/20 09:00 02/02/20 09:19 Aspirin 81 Mg Enteric Coated Tablet PO 81 mg DAILY BERNA Administration Atorvastatin Calcium 20 mg 01/29/20 09:00 02/02/20 09:19 Atorvastatin Calcium 20 Mg Tab PO 20 mg DAILY BERNA Administration Clopidogrel Bisulfate 75 mg 01/29/20 09:00 02/02/20 09:19 Clopidogrel Bisulfate 75 Mg Tab PO 75 mg DAILY BERNA Administration Hydralazine HCl 10 mg 01/28/20 09:06 01/28/20 18:55 Hydralazine 20 Mg/Ml Vial SLOW IVP 10 mg Q4H PRN Administration SBP > 185, DBP > 100 Sodium Chloride 1,000 mls @ 125 mls/hr 02/01/20 09:26 02/03/20 01:21 Normal Saline 0.9% IV 1,000 mls .Q8H BERNA Administration Labetalol HCl 20 mg 01/27/20 23:38 01/28/20 12:48 Labetalol Hcl 100 Mg/20 Ml Vial SLOW IVP 20 mg Q4H PRN Administration Hypertension Losartan Potassium 100 mg 01/31/20 09:00 02/02/20 09:19 Losartan 25 Mg Tab PO 100 mg DAILY BERNA Administration Prednisolone Acetate 1 drop 01/29/20 13:00 02/02/20 20:13 Prednisolone 1% Ophth Susp 5 Ml Bottle EA EYE 1 drp QID BERNA Administration Prednisone 100 mg 02/02/20 08:00 02/02/20 09:18 Prednisone 50 Mg Tab PO 02/05/20 08:01 100 mg QAM-WM BERNA Administration Senna 2 tab 01/31/20 19:24 02/02/20 17:09 Senokot 8.6 Mg Tab PO 2 tab BIDPRN PRN Administration Constipation Sodium Chloride 10 ml 01/29/20 09:00 02/02/20 20:12 Flush - Normal Saline 10 Ml Syringe IVF 10 ml Q12HR BERNA Administration Sodium Chloride 1 gm 01/30/20 15:00 02/02/20 20:12 Sodium Chloride 1 Gm Tab PO 1 gm TID BERNA Administration Timolol Maleate 1 drop 01/29/20 09:00 02/02/20 20:13 Timolol 0.5% Ophth Soln 5 Ml Bottle L EYE 1 drop BID BERNA Administration Tramadol HCl 50 mg 01/29/20 19:45 01/30/20 23:21 Tramadol Hcl 50 Mg Tab PO 50 mg Q4H PRN Administration Moderate Pain (4-6) Tramadol HCl 100 mg 01/29/20 19:45 02/01/20 03:40 Tramadol Hcl 50 Mg Tab PO 100 mg Q4H PRN Administration Severe Pain (7-10) - Exam General Appearance: NAD, awake alert ENT: moist mucosa ENT - other findings: large, hard mass to left neck Heart: RRR, no murmur, no gallops, no rubs Respiratory: CTAB, no wheezes, no rales, no ronchi Gastrointestinal: soft, non-tender, non-distended, normal bowel sounds Psychiatric: normal affect, normal behavior Hosp A/P (1) Acute metabolic encephalopathy Code(s): G93.41 - METABOLIC ENCEPHALOPATHY Status: Resolved (2) Hypertensive urgency Code(s): I16.0 - HYPERTENSIVE URGENCY Status: Resolved (3) Hyponatremia Code(s): E87.1 - HYPO-OSMOLALITY AND HYPONATREMIA Status: Acute (4) CLL (chronic lymphocytic leukemia) Code(s): C91.10 - CHRONIC LYMPHOCYTIC LEUK OF B-CELL TYPE NOT ACHIEVE REMIS St atus: Chronic (5) Peripheral vascular disease Code(s): I73.9 - PERIPHERAL VASCULAR DISEASE, UNSPECIFIED Status: Chronic (6) HTN (hypertension) Code(s): I10 - ESSENTIAL (PRIMARY) HYPERTENSION Status: Chronic - Plan Hypertensive urgency-resolved Patient's symptoms are improved. Initiated his home losartan at an increased dose of 50 mg. Started amlodipine 10 mg. BP improved, though goes up when in pain from cancer. 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 Improved with salt tablets and fluid restriction. CLL with large left neck mass: Patient has substantial lymphadenopathy in the left neck creating a significant mass. Previous imaging did not show any compromise of the carotid that might be contributing to his hypertension. Worsening pain and symptoms. Patient has had poor outpatient f/u. Mediport placed and initiated chemo in the hospital. Allopurinol for possible tumor lysis syndrome. AMS: Became a little confused right after starting chemo, now cleared. 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 Cannot care for self at home. Case management to work on safe d/c plan. PT recommends rehab/SNF but per nursing patient's daught er and son want to take him home. If they want to do that today will arrange home health with PT/OT. F/u Onc outpatient.
[2020-02-03] MEDS ORDERED: Potassium Chloride 20 MEQ TAB PO SCH (07:30)
[2020-02-03] MEDS ORDERED: Potassium Phosphate 15 MMOL in Sodium Chloride 0.9% 250 ML 250 ML IVPB SCH (07:45)
[2020-02-03] MEDS: Timolol 0.5% Ophth Soln 5 ml Bottle L EYE SCH (08:19)
[2020-02-03] MEDS: prednisoLONE 1% Ophth Susp 5 ml Bottle EA EYE SCH ×2 (08:19→12:06)
[2020-02-03] MEDS: predniSONE 50 MG TAB PO SCH (08:20)
[2020-02-03] MEDS: Aspirin 81 mg Enteric Coated Tablet PO SCH (08:21)
[2020-02-03] MEDS: Losartan 25 MG TAB PO SCH (08:21)
[2020-02-03] MEDS: Sodium Chloride 1 GM TAB PO SCH ×2 (08:24→14:20)
[2020-02-03] MEDS: Atorvastatin Calcium 20 MG TAB PO SCH (08:24)
[2020-02-03] MEDS: Allopurinol 100 MG TAB PO SCH (08:24)
[2020-02-03] MEDS: Amlodipine 10 MG TAB PO SCH (08:24)
[2020-02-03] MEDS: Clopidogrel Bisulfate 75 MG TAB PO SCH (08:24)
[2020-02-03 08:30] VITALS: BP 140/65; TEMP 97.6
--- NOTE | 2020-02-03 09:00 | PDOC.NEPPN ---
- Subjective Encounter Date: 02/03/20 Encounter Time: 08:57 Subjective: Seen in follow up for Hyponatremia. Feeling better. S/p chemotherapy for lymphoma - Objective Vital Signs & Weight: Vital Signs (12 hours) Temp Pulse Resp BP BP Pulse Ox 02/03/20 08:29 97.6 F 89 16 140/65 100 02/03/20 08:24 90 02/03/20 08:19 90 02/03/20 04:00 97.9 F 90 16 130/68 100 02/03/20 00:00 98 F 92 16 136/72 100 Weight Weight 156 lb I&O: 02/02/20 02/03/20 02/04/20 06:59 06:59 06:59 Intake Total 2080 2210 Output Total 450 950 Balance 1630 1260 Result Diagrams: 02/03/20 06:35 02/03/20 06:35 Nephrology ROS - Medication Medications: Active Medications Generic Name Dose Route Start Last Admin Trade Name Freq PRN Reason Stop Dose Admin Acetaminophen 650 mg 01/27/20 23:34 01/30/20 08:46 Acetaminophen 325 Mg Tab PO 650 mg Q4H PRN Administration Headache/Fever/Mild Pain (1-3) Allopurinol 100 mg 01/31/20 09:00 02/03/20 08:24 Allopurinol 100 Mg Tab PO 100 mg DAILY BERNA Administration Amlodipine Besylate 10 mg 01/30/20 09:00 02/03/20 08:24 Amlodipine 10 Mg Tab PO 10 mg DAILY BERNA Administration Aspirin 81 mg 01/29/20 09:00 02/03/20 08:21 Aspirin 81 Mg Enteric Coated Tablet PO 81 mg DAILY BERNA Administration Atorvastatin Calcium 20 mg 01/29/20 09:00 02/03/20 08:24 Atorvastatin Calcium 20 Mg Tab PO 20 mg DAILY BERNA Administration Clopidogrel Bisulfate 75 mg 01/29/20 09:00 02/03/20 08:24 Clopidogrel Bisulfate 75 Mg Tab PO 75 mg DAILY BERNA Administration Hydralazine HCl 10 mg 01/28/20 09:06 01/28/20 18:55 Hydralazine 20 Mg/Ml Vial SLOW IVP 10 mg Q4H PRN Administration SBP > 185, DBP > 100 Sodium Chloride 1,000 mls @ 125 mls/hr 02/01/20 09:26 02/03/20 01:21 Normal Saline 0.9% IV 1,000 mls .Q8H BERNA Administration Potassium Phosphate 15 mmol/ 255 mls @ 62.5 mls/hr 02/03/20 07:45 02/03/20 08:18 Sodium Chloride IVPB 02/03/20 12:00 255 mls NOW BERNA Administration Labetalol HCl 20 mg 01/27/20 23:38 01/28/20 12:48 Labetalol Hcl 100 Mg/20 Ml Vial SLOW IVP 20 mg Q4H PRN Administration Hypertension Losartan Potassium 100 mg 01/31/20 09:00 02/03/20 08:21 Losartan 25 Mg Tab PO 100 mg DAILY BERNA Administration Pantoprazole Sodium 40 mg 02/03/20 09:00 02/03/20 08:24 Pantoprazole 40 Mg Tab PO 40 mg DAILY BERNA Administration Potassium Chloride 40 meq 02/03/20 07:30 02/03/20 08:24 Potassium Chloride 20 Meq Tab PO 02/03/20 10:30 40 meq NOW BERNA Administration Prednisolone Acetate 1 drop 01/29/20 13:00 02/03/20 08:19 Prednisolone 1% Ophth Susp 5 Ml Bottle EA EYE 1 drp QID BERNA Administration Prednisone 100 mg 02/02/20 08:00 02/03/20 08:20 Prednisone 50 Mg Tab PO 02/05/20 08:01 100 mg QAM-WM BERNA Administration Senna 2 tab 01/31/20 19:24 02/02/20 17:09 Senokot 8.6 Mg Tab PO 2 tab BIDPRN PRN Administration Constipation Sodium Chloride 10 ml 01/29/20 09:00 02/03/20 08:25 Flush - Normal Saline 10 Ml Syringe IVF 10 ml Q12HR BERNA Administration Sodium Chloride 1 gm 01/30/20 15:00 02/03/20 08:24 Sodium Chloride 1 Gm Tab PO 1 gm TID BERNA Administration Timolol Maleate 1 drop 01/29/20 09:00 02/03/20 08:19 Timolol 0.5% Ophth Soln 5 Ml Bottle L EYE 1 drop BID BERNA Administration Tramadol HCl 50 mg 01/29/20 19:45 01/30/20 23:21 Tramadol Hcl 50 Mg Tab PO 50 mg Q4H PRN Administration Moderate Pain (4-6) Tramadol HCl 100 mg 01/29/20 19:45 02/01/20 03:40 Tramadol Hcl 50 Mg Tab PO 100 mg Q4H PRN Administration Severe Pain (7-10) - Exam General Appearance: awake alert Eye: anicteric sclera ENT: normocephalic atraumatic Neck - other findings: Left neck mass noted Respiratory: CTAB Cardiovascular: RRR Gastrointestinal: soft, non-tender, non-distended, normal bowel sounds Extremities: no cyanosis, no edema Neurological: CN's grossly intact, no focal deficits PSYCH: A&O x 3 Nephrology Results - Labs Result Diagrams: 02/03/20 06:35 02/03/20 06:35 Lab results: WBC 15.0 thou/uL (4.8-10.8) H 02/03/20 06:35 Hgb 10.0 g/dL (14.0-18.0) L 02/03/20 06:35 Hct 28.7 % (42.0-52.0) L 02/03/20 06:35 MCV 85.2 fL (78.0-98.0) 02/03/20 06:35 Plt Count 97 thou/uL (130-400) L 02/03/20 06:35 Neutrophils % 52.0 % (42.0-75.0) 01/30/20 04:01 Band Neuts % (Manual) 27 % (5-11) H 02/03/20 06:35 Sodium 134 mmol/L (136-145) L 02/03/20 06:35 Potassium 3.4 mmol/L (3.5-5.1) L 02/03/20 06:35 Chloride 103 mmol/L (98-107) 02/03/20 06:35 Carbon Dioxide 21 mmol/L (23-31) L 02/03/20 06:35 BUN 11 mg/dL (8.4-25.7) 02/03/20 06:35 Creatinine 0.71 mg/dL (0.7-1.3) 02/03/20 06:35 Glucose 104 mg/dL (83-110) 02/03/20 06:35 Calcium 8.2 mg/dL (7.8-10.44) 02/03/20 06:35 Total Bilirubin 0.4 mg/dL (0.2-1.2) 02/03/20 06:35 AST 31 U/L (5-34) 02/03/20 06:35 ALT 23 U/L (8-55) 02/03/20 06:35 Alkaline Phosphatase 136 U/L (40-110) H 02/03/20 06:35 Troponin I 0.027 ng/mL (< 0.028) 01/28/20 09:52 B-Natriuretic Peptide 210.5 pg/mL (0-100) H 01/27/20 21:34 Serum Total Protein 5.7 g/dL (5.8-8.1) L 02/03/20 06:35 Albumin 3.0 g/dL (3.4-4.8) L 02/03/20 06:35 Urine Ketones 10 mg/dL (Negative) A 01/30/20 12:28 Urine Blood Trace (Negative) A 01/30/20 12:28 Urine Nitrite Negative (Negative) 01/30/20 12:28 Ur Leukocyte Esterase Negative Orlin/uL (Negative) 01/30/20 12:28 Urine RBC 7-10 HPF (0-3) A 01/30/20 12:28 Urine WBC 0-3 HPF (0-3) 01/30/20 12:28 Ur Squamous Epith Cells 0-3 HPF (0-3) 01/30/20 12:28 Urine Bacteria None Seen HPF (None Seen) 01/30/20 12:28 Sodium 134 mmol/L (136-145) L 02/03/20 06:35 Potassium 3.4 mmol/L (3.5-5.1) L 02/03/20 06:35 Chloride 103 mmol/L (98-107) 02/03/20 06:35 Carbon Dioxide 21 mmol/L (23-31) L 02/03/20 06:35 Anion Gap 13 mmol/L (10-20) 02/03/20 06:35 BUN 11 mg/dL (8.4-25.7) 02/03/20 06:35 Creatinine 0.71 mg/dL (0.7-1.3) 02/03/20 06:35 Glucose 104 mg/dL (83-110) 02/03/20 06:35 Calcium 8.2 mg/dL (7.8-10.44) 02/03/20 06:35 Phosphorus 2.1 mg/dL (2.3-4.7) L 02/03/20 06:35 Albumin 3.0 g/dL (3.4-4.8) L 02/03/20 06:35 Nephrology AP PN - Plan 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 Sodium is trending up with salt tablet. 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 Hypokalemia Hypophosphatemia HTN: Control acceptable. Lymphoma. S/p Chemotherapy Abnormal LFT. new onset. Due to chemotherapy most likely Acute anemia Plan Replete serum potassium and phosporus with potassium phosphate. Continue NS at 125 and allopurinol for TLS prevenetion. Continue salt tablet Monitor electrolyte and renal function
--- NOTE | 2020-02-03 13:27 | PDOC.MOPN ---
Interval History: resting comfortable, no pain - Vital Signs Vital Signs: Vital Signs (12 hours) Temp Pulse Resp BP Pulse Ox 02/03/20 08:29 97.6 F 89 16 140/65 100 02/03/20 08:24 90 02/03/20 08:19 90 02/03/20 04:00 97.9 F 90 16 130/68 100 Weight Weight 156 lb - Physical Exam General: No acute distress Lungs: Clear to auscultation Cardiovascular: Regular rate Neurological: Normal speech - Labs Result Diagrams: 02/03/20 06:35 02/03/20 06:35 Lab results: Laboratory Results - last 24 hr 02/03/20 06:35: Sodium 134 L, Potassium 3.4 L, Chloride 103, Carbon Dioxide 21 L, Anion Gap 13, BUN 11, Creatinine 0.71, Estimated GFR (MDRD) Greater than 90, Glucose 104, Uric Acid 4.1, Calcium 8.2, Phosphorus 2.1 L, Total Bilirubin 0.4, AST 31, ALT 23, Alkaline Phosphatase 136 H, Serum Total Protein 5.7 L, Albumin 3.0 L, Globulin 2.7, Albumin/Globulin Ratio 1.1 L 02/03/20 06:35: WBC 15.0 H, RBC 3.38 L, Hgb 10.0 L, Hct 28.7 L, MCV 85.2, MCH 29.7, MCHC 34.9, RDW 12.4, Plt Count 97 L, MPV 8.9, Neutrophils % (Manual) 71, Band Neuts % (Manual) 27 H, Lymphocytes % (Manual) 2 L, Plt Morphology Comment Appears Decreased L Status: lab reviewed by me A/P - Problem (1) CLL (chronic lymphocytic leukemia) Current Visit: No Code(s): C91.10 - CHRONIC LYMPHOCYTIC LEUK OF B-CELL TYPE NOT ACHIEVE REMIS Status: Chronic - Plan Plan: C1D3 R-CHOP chemo no evidence of tumor lysis states feels neck mass slightly smaller Follow-up Sunday 02/11 at 930 AM
--- NOTE | 2020-02-03 15:28 | EKG ---
Test Reason : Blood Pressure : / mmHG Vent. Rate : 075 BPM Atrial Rate : 075 BPM P-R Int : 128 ms QRS Dur : 072 ms QT Int : 392 ms P-R-T Axes : 076 029 040 degrees QTc Int : 437 ms Normal sinus rhythm Possible Left atrial enlargement Left ventricular hypertrophy Abnormal ECG Peaked T waves Confirmed by ISABELLE CAMACHO, FRANKLYN Garcia ([id number]), graphics editor DARRELL JOSE ([id number]) on 02/03/2020 3:27:27 PM Referred By: Confirmed By:FRANKLYN WALTON MD
[2020-02-04] MEDS ORDERED: Polyethylene Glycol 3350 17 GM Packet PO SCH (09:00)
--- NOTE | 2020-02-04 15:37 | DIS ---
DATE OF ADMISSION: 01/28/2020 DATE OF DISCHARGE: 02/03/2020 PRIMARY CARE PHYSICIAN: Octaviano Rodríguez. REASON FOR ADMISSION: Headache and hypertensive emergency. DIAGNOSES AT DISCHARGE: 1. Hypertensive emergency, resolved. 2. Hyponatremia. 3. Chronic lymphocytic leukemia. 4. Peripheral vascular disease. PROCEDURES: CT of the brain without contrast showing no evidence of acute intracranial abnormality and a stable large left neck mass. CONSULTATIONS: None. SUMMARY OF HOSPITAL COURSE: This is a 70-year-old male with a history of lymphoma of the left neck, blindness, and GI bleeding, currently on chemotherapy. The patient was seen in the hospital a few days ago for sudden onset of left-sided headache and left vision changes, had a negative MRI of the brain, was seen by Ophthalmology and by ENT, was started on some steroids at that time, though they are not on his medicine list anymore and was discharged to follow up with Dr. Snyder in the clinic. He was put on some sort of steroid eyedrops, though those are apparently on hold right now. The patient presented back to the emergency room with severe headache and severe hypertension and systolic blood pressure greater than 140. He was given IV labetalol and eventually put on a Cardene drip. He had his medications adjusted in the hospital, started on amlodipine, and increased his losartan and his blood pressure came down, ranging in the 140s to 160s systolic and with minimal headache the day of discharge. He was stable. He did miss his oncology appointment, so he is going to have to reschedule that with Dr. Murillo's office. DISCHARGE MANAGEMENT: Discharged home. ACTIVITY: As tolerated. DIET: Healthy heart low-sodium diet. FOLLOWUP: Follow up with Dr. Murillo. Call her office and reschedule his appointment and with his primary care doctor in the next week. DISCHARGE MEDICATIONS: 1. Losartan 50 mg daily, 30 tablets dispensed. 2. Amlodipine 5 mg daily, 30 tablets dispensed. 3. Aspirin 81 mg daily. 4. Atorvastatin 20 mg daily. 5. Clopidogrel 75 mg daily. 6. Prednisolone acetate drops, take as prescribed by Dr. Snyder. Job ID: [id number]
--- NOTE | 2020-02-05 10:12 | DIS ---
DATE OF ADMISSION: 01/28/2020 DATE OF DISCHARGE: 02/03/2020 PRIMARY CARE PHYSICIAN: Octaviano Rodríguez. REASON FOR ADMISSION: Hypertensive emergency. DIAGNOSES AT DISCHARGE: 1. Hypertensive emergency, resolved. 2. Chronic lymphocytic leukemia with a large mass in the left side of his neck. 3. Hyponatremia, improved. 4. Acute metabolic encephalopathy, resolved. 5. Peripheral vascular disease. 6. Blindness. PROCEDURES: 1. CT of the brain without contrast showing no evidence for acute intracranial abnormality in a stable large left neck mass. 2. Echocardiogram showing an ejection fraction of 60% to 65% and diastolic dysfunction. 3. MediPort placement. CONSULTATIONS: 1. Nephrology, Dr. Herring. 2. Oncology, Deirdre Murillo. 3. General Surgery, Dr. Lance. SUMMARY OF HOSPITAL COURSE: This is a 70-year-old male with past medical history of a large lymphoma of the left neck, blindness, and previous GI bleed, supposed to be getting chemotherapy but has been missing all of his outpatient followups. The patient presented to the emergency room for headache that has been going on for over a week. He had recently been to the hospital for left eye vision changes and left-sided headaches with progressive blindness. He had an MRI of the brain, it was negative and saw Ophthalmology for the eye changes and was discharged. He never did follow up with Dr. Murillo, his oncologist. The patient had severe hypertension when he came in with blood pressures over 240 systolic. He was given IV labetalol and then put on IV Cardene drip. This helped to improve his blood pressure. Eventually, his medications were adjusted, he was weaned off the Cardene drip. The patient did have some weakness and difficulty getting around in the hospital. He had previously been living alone. We did contact his family and his daughter and son did determine that they would take him home with them when he was ready for discharge. He was noted to be hyponatremic, which was a concern for possible part of his weakness. Dr. Herring was consulted with Nephrology. 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 Dr. Murillo was consulted of Oncology and the patient did have a MediPort placed and then he had his first round of chemotherapy. This did seem to decrease some of the large size of the mass and the tension that was on the left side of his neck. He had no further pain or blood pressure issues. Oncology cleared the patient for discharge. We did offer to try and set up a alf stay for the patient, however, he and his family determined that his children will take home and so he is being discharged home. He will have some Home Health PT and OT arranged by Case Management this coming week. DISCHARGE MANAGEMENT: Discharged home with Home Health. ACTIVITY: As tolerated. DIET: Healthy heart fluid-restricted diet. THERAPY: Occupational and physical therapy via Home Health. FOLLOWUP: Follow up with primary care provider in [address] Murillo on February 11 at 9:30 a.m. DISCHARGE MEDICATIONS: 1. Losartan 100 mg daily, 30 tablets dispensed. 2. Amlodipine 10 mg daily, 30 tablets dispensed. 3. Sodium chloride 1 g p.o. three times a day, 90 tablets dispensed. 4. Allopurinol 100 mg daily, 30 tablets dispensed. 5. Prednisone 50 mg tablets two tablets daily for 2 more days for a total of 4 days after the chemotherapy. 6. Aspirin 81 mg daily. 7. Atorvastatin 20 mg daily. 8. Clopidogrel 75 mg daily. 9. Prednisolone eye drops one drop in each eye four times a day to finish a 10 days course per Ophthalmology. TIME SPENT: Arranging the details of this discharge took 35 minutes. Job ID: [id number]
--- NOTE | 2020-02-06 12:05 | PQF ---
CLINICAL DOCUMENTATION CLARIFICATION FORM: Dear : Russ Eaton Date / Time: 02/06/2020 Please exercise your independent, professional judgment in responding to the clarification form. Clinical indicators are provided on the bottom of this form for your review Kindly clarify regarding diagnosis occasioning IP admission Please check appropriate box(es): [ X ] Hypertensive urgency [ X ] Chronic lymphocytic leukemia [ ] Other diagnosis [ ] Unable to determine In addition, please specify: Present on Admission (POA): [ X ] Yes [ ] No [ ] Unable to determine To be completed by CDI/Coding staff for physician review: Present Clinical Indicators - Signs / Symptoms / Labs Results and Location in Medical Record [ x ] ED final diagnoses: Hypertensive crisis and left neck mass ED provider notes [ x ] Workup in the emergency room, patient was hypertensive with systolic blood pressure of more than 240, was given IV labetalol, still monitoring the blood pressure H and P [ x ] Patient has a large left-sided neck mass, for which he is being cared for by oncologist H and P [ x ] CLL with large left neck mass. Patient has substantial lymphadenopathy in the left neck creating a significant mass Progress note 01/27 by Rocco Renae [ x ] Patient has had interval growth in his lymph node conglomeration in left neck. He needs chemotherapy on this admission. We will consult General Surgery for MedPort placement. 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 Oncology consulted, patient did have a MediPort placed and then he had his first round of chemotherapy Discharge summary Present Risk Factors Results and Location in Medical Record [ x ] History of CLL, chronic hypertension H and P Present Treatments Results and Location in Medical Record [ x ] IV Labetalol 01/27-02/02 Medications [ x ] Mediport placement for chemotherapy OP report 01/31 CD[employer]arm [employer] Agent Signature: [id number] Phone #: Date/Time: 02/06/2020 This is a permanent part of the Medical Record [facility]
== END 2020-02-03 17:31 | disposition home health service (06) | DRG 981 ==
LOC: ERS 19:43 → ERHOLD 23:37 → OBSVTOIN 01-28 12:41 → 2NO 01-28 18:46 → ONC 01-31 15:59
PROVIDERS: ADMIT Internal Medicine; ATTEND Emergency Medicine
PROC: 0JH60WZ Insertion of Totally Implantable Vascular Access Device into Chest Subcutaneous Tissue and Fascia, Open Approach (ICD-10-PCS; principal; 2020-02-01)
PROC: 02HV33Z Insertion of Infusion Device into Superior Vena Cava, Percutaneous Approach (ICD-10-PCS; 2020-02-01)
PROC: B5181ZA Fluoroscopy of Superior Vena Cava using Low Osmolar Contrast, Guidance (ICD-10-PCS; 2020-02-01)
PROC: 3E03305 Introduction of Other Antineoplastic into Peripheral Vein, Percutaneous Approach (ICD-10-PCS; 2020-02-01)
DX: I16.1 Hypertensive emergency (principal); G93.41 Metabolic encephalopathy; C91.10 Chronic lymphocytic leukemia of B-cell type not having achieved remission; E22.2 Syndrome of inappropriate secretion of antidiuretic hormone; H53.132 Sudden visual loss, left eye; C85.91 Non-Hodgkin lymphoma, unspecified, lymph nodes of head, face, and neck; F17.210 Nicotine dependence, cigarettes, uncomplicated; Z20.828 Contact with and (suspected) exposure to other viral communicable diseases; I73.9 Peripheral vascular disease, unspecified; I10 Essential (primary) hypertension; K21.9 Gastro-esophageal reflux disease without esophagitis; I25.10 Atherosclerotic heart disease of native coronary artery without angina pectoris; E78.5 Hyperlipidemia, unspecified; E87.6 Hypokalemia; E83.39 Other disorders of phosphorus metabolism; R94.5 Abnormal results of liver function studies; D64.9 Anemia, unspecified; Z92.21 Personal history of antineoplastic chemotherapy; Z95.5 Presence of coronary angioplasty implant and graft; Z98.890 Other specified postprocedural states; Z88.8 Allergy status to other drugs, medicaments and biological substances; Z85.51 Personal history of malignant neoplasm of bladder; Z79.02 Long term (current) use of antithrombotics/antiplatelets; Z79.82 Long term (current) use of aspirin
CPT/HCPCS: 36415; 36416; 70450; 71045; 80048; 80053; 81001; 83615; 83880; 83930; 83935; 84100; 84300; 84484; 84550; 85025; 87635; 93005; 93010; 93306; 96365; 96367; 96375; 96376; C1788; G0378; J0360; J0690; J1100; J1200; J1453; J1630; J1642; J1885; J2250; J2270; J2469; J2765; J3010; J3490; J7030; J7050; J7512; J9000; J9070; J9370; Q0163; Q5108; Q5115; S0020; U0003

== ENCOUNTER 2020-02-21 16:10 | Inpatient (IN) | payer MEDICARE ==
[2020-02-21 19:17] LABS: #Basophils 0.1 thou/uL (0.0-0.2); #Eosinphils 0.1 thou/uL (0.0-0.7); #Lymphocytes 2.6 thou/uL (1.20-3.40); #Monocytes 0.7 thou/uL (0.11-0.59); %Basophils 0.4 % (0.0-1.0); %Eosinophils 0.3 % (0.0-10.0); %Lymphocytes 14.8 % (21.0-51.0); %Neutrophils 80.5 % (42.0-75.0); Hemoglobin 11.5 g/dL (14.0-18.0); Mean Corpuscular HGB CONC 33.5 g/dL (32.0-36.0); Mean Corpuscular Hemoglobin 28.8 pg (27.0-31.0); Mean Corpuscular Volume 85.9 fL (78.0-98.0); Mean Platelet Volume 7.2 fL (7.4-10.4); Platelet Count 321 thou/uL (130-400); White Blood Cell (WBC) Count 17.4 thou/uL (4.8-10.8)
[2020-02-21 19:43] LABS: ALT (SGPT) 12 U/L (8-55); AST (SGOT) 19 U/L (5-34); Albumin 3.7 g/dL (3.4-4.8); Alkaline Phosphatase 127 U/L (40-110); Anion Gap 19 mmol/L (10-20); BUN (Urea Nitrogen) 15 mg/dL (8.4-25.7); Bilirubin, Total 0.5 mg/dL (0.2-1.2); Calc. Creatinine Clearance 0 mL/min (70-130); Calcium 9.2 mg/dL (7.8-10.44); Carbon Dioxide 19 mmol/L (23-31); Chloride 100 mmol/L (98-107); Glucose 98 mg/dL (83-110); Potassium 4.5 mmol/L (3.5-5.1); Protein, Total 6.7 g/dL (5.8-8.1); Sodium 133 mmol/L (136-145)
--- NOTE | 2020-02-21 21:18 | CT ---
CT Brain WO Con History: Syncope Comparison: CT brain January 2020 Findings: Partially visualized extensive necrotic adenopathy along the left neck. No acute hemorrhage or infarct. No midline shift or mass effect. Ventricular size and extra-axial spaces spaces are normal. The calvarium is intact. Partial fluid filling of the mastoids. Impression: No acute intracranial abnormality.
[2020-02-22 02:15] LABS: Troponin I 0.026 ng/mL (< 0.028)
[2020-02-22 02:40] LABS: Bacteria/HPF None Seen HPF (None Seen); Bilirubin Negative (Negative); Blood, Urine Negative (Negative); Clarity Clear (Clear); Glucose, Urine (Dipstick) Normal (Negative); Ketone, Urine 10 mg/dL (Negative); Leukocyte Negative Leu/uL (Negative); Nitrite Negative (Negative); Protein, Urine (Dipstick) 30 mg/dL (Neg-Trace); RBC/HPF 0-3 HPF (0-3); Squamous Epithelial None Seen HPF (0-3); Urobilinogen 3 mg/dL (Less than 2); WBC/HPF 0-3 HPF (0-3); pH, Urine 5.5 (5.0-9.0)
[2020-02-22] MEDS ORDERED: Acetaminophen 650 MG Suppository PR PRN (03:41)
[2020-02-22] MEDS ORDERED: Acetaminophen 325 MG TAB PO PRN ×2 (03:41→11:46)
--- NOTE | 2020-02-22 03:49 | PDOC.HHP ---
Hospitalist HPI - History of Present Illness ADMISSION DATE: 02/22/2020 ED Course: ADMISSION DATE: 02/22/2020 TIME OF ASSESSMENT: 0200 CHIEF COMPLAINT: Lightheadedness/presyncope HPI: This is a 70-year-old gentleman who presents with 2 episodes of lightheadedness and feeling as if he was going to pass out. The first episode occurred while he was at his doctor's appointment yesterday morning. States the nurse asked him if he was feeling well and he reports having sudden onset of feeling flushed and warm. He felt as if he might blackout but never lost consciousness or fell. He asked to lay down and after resting for a few moments he felt better and was able to leave. The second episode occurred when he was driving home with his daughter. He states he felt nauseated and as if he needed to have a bowel movement therefore asked his daughter to head well puller at a gas stop. Upon getting out of the vehicle he suddenly became lightheaded and held onto the door. He again denies any fall or syncope but had the same sensation of feeling flushed. Patient reports coughing up thick phlegm that was brown in c olor. Denies any recent cough or hemoptysis but has had difficulty with his swallowing. Endorses occasional choking episodes while eating. He was recently admitted with hypertensive urgency mid January 2020 during which hospitalization he underwent an echocardiogram that showed an EF of 60% to 65% and evidence of diastolic dysfunction. During that admission he was noted to be hyponatremic and therefore seen by Dr. Herring of nephrology who determined he was in SIADH due to cancer. Patient had improvement following fluid restriction and salt tablets. It was during that admission that the patient was seen by Dr. Murillo with whom he had not followed up with previously and finally underwent Mediport placement and received his first chemotherapy. He states he supposed to be undergoing his second chemotherapy treatment tomorrow. ROS: He denies having any associated chest pain. Does report noting shallow breathing with the first episode. Denies having any dizziness or spinning sensation. He has had gradual worsening with his vision in the left eye and gradual worsening with hearing in his left ear due to the large left neck mass. Denies any speech disturbances. No facial weakness or numbness and has not experienced any extremity weakness or numbness. Reports having a "splitting headache" yesterday morning which eventually resolved. No recent fevers chills or sweats. All other review of systems are negative. ED COURSE: At initial presentation patient had a low BP of 103/63 which is improved to 133/74. Low-grade temp of 99 and heart rate ranging from 97-107. He had an EKG done which showed a normal sinus rhythm with a heart rate of 95. No ST changes present. No T wave abnormalities. Labs showed a white cell count of 17.4, hemoglobin 11.5, hematocrit 34.3. Platelets 321, neutrophils 80.5%. Sodium 133, potassium 4.5, BUN 15, creatinine 0.86, GFR greater than 90, glucose 98, lactic acid 1.9, LFTs normal. Alk phos 127. Troponin negative x2. Urinalysis showed 30 of protein, 10 of glucose, otherwise negative. CT head was done showing no acute intracranial abnormality. No neck imaging done today however last Neck CT scan was on December 19, 2019 at which time he had extensive pathologic adenopathy in the left neck beginning at level 2 and extending inferior through level 3 and level 4 regions. Numerous lymph nodes with central necrosis. Patient states that since then the mass has continued to increase in size. PAST MEDICAL HISTORY: 1. Hypertension 2. Hyperlipidemia 3. Chronic lymphocytic leukemia with a large mass in the left side of his neck 4. 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 CAD 6. History of bladder cancer 7. Peripheral vascular disease 8. History of GI bleeds PAST SURGICAL HISTORY: 1. Multiple right eye surgeries 2. Bladder repair 3. Peripheral vascular stents in legs 4. Cardiac stents 5. Status post neck mass biopsy 6. Mediport placement SOCIAL HISTORY: Patient lives alone and is fully independent. He denies any tobacco use alcohol consumption or drug use. FAMILY HISTORY: Noncontributory ALLERGIES: Aspirin CURRENT MEDICATIONS: 1. Pantoprazole 40 mg p.o. daily 2. Aspirin 81 mg p.o. daily 3. Clopidogrel 75 mg p.o. daily 4. Atorvastatin 20 mg p.o. daily 5. Losartan 25 mg p.o. daily Surrogate decision maker is his daughter Maren. Hospitalist History - Social History Alcohol: reports: None Drugs: reports: none - Exam General Appearance: NAD, awake alert General - other findings: VS: HR 97, BP 133/74, RR 16, O2 sat 99% on room air, temp 98.9 Eye - other findings: Blind in right eye ENT: normocephalic atraumatic Neck - other findings: Large firm mass involving entire left neck extending up to base of left ear Heart: RRR, normal peripheral pulses Respiratory: CTAB, no wheezes, no rales, no ronchi, normal chest expansion, no tachypnea Gastrointestinal: soft, non-tender, non-distended, normal bowel sounds, no guarding, no rigidity Extremities: no edema Skin: normal turgor, no lesions, no rashes Neurological: cranial nerve grossly intact, normal sensation to touch Musculoskeletal: normal tone, normal strength, no muscle wasting Psychiatric: normal affect, normal behavior, A&O x 3 Hospitalist Results - Labs Result Diagrams: 02/21/20 18:30 02/21/20 18:30 Lab results: WBC 17.4 thou/uL (4.8-10.8) H 02/21/20 18:30 Hgb 11.5 g/dL (14.0-18.0) L 02/21/20 18:30 Hct 34.3 % (42.0-52.0) L 02/21/20 18:30 MCV 85.9 fL (78.0-98.0) 02/21/20 18:30 Plt Count 321 thou/uL (130-400) 02/21/20 18:30 Neutrophils % 80.5 % (42.0-75.0) H 02/21/20 18:30 Sodium 133 mmol/L (136-145) L 02/21/20 18:30 Potassium 4.5 mmol/L (3.5-5.1) 02/21/20 18:30 Chloride 100 mmol/L (98-107) 02/21/20 18:30 Carbon Dioxide 19 mmol/L (23-31) L 02/21/20 18:30 BUN 15 mg/dL (8.4-25.7) 02/21/20 18:30 Creatinine 0.86 mg/dL (0.7-1.3) 02/21/20 18:30 Glucose 98 mg/dL (83-110) 02/21/20 18:30 Lactic Acid 1.9 mmol/L (0.5-2.2) 02/21/20 22:27 Calcium 9.2 mg/dL (7.8-10.44) 02/21/20 18:30 Total Bilirubin 0.5 mg/dL (0.2-1.2) 02/21/20 18:30 AST 19 U/L (5-34) 02/21/20 18:30 ALT 12 U/L (8-55) 02/21/20 18:30 Alkaline Phosphatase 127 U/L (40-110) H 02/21/20 18:30 Troponin I 0.026 ng/mL (< 0.028) 02/22/20 01:24 Serum Total Protein 6.7 g/dL (5.8-8.1) 02/21/20 18:30 Albumin 3.7 g/dL (3.4-4.8) 02/21/20 18:30 Urine Ketones 10 mg/dL (Negative) A 02/22/20 01:32 Urine Blood Negative (Negative) 02/22/20 01:32 Urine Nitrite Negative (Negative) 02/22/20 01:32 Ur Leukocyte Esterase Negative Orlin/uL (Negative) 02/22/20 01:32 Urine RBC 0-3 HPF (0-3) 02/22/20 01:32 Urine WBC 0-3 HPF (0-3) 02/22/20 01:32 Ur Squamous Epith Cells None Seen HPF (0-3) 02/22/20 01:32 Urine Bacteria None Seen HPF (None Seen) 02/22/20 01:32 - Radiology Interpretation CT scan - head Status: report reviewed by tx Hospitalist H&P A/P - Problem (1) Lightheaded Code(s): R42 - DIZZINESS AND GIDDINESS Status: Acute Assessment and Plan: Cardiac monitoring. Recent echo last month. Orthsotatic BPs. Caortid US ordered Consider further CT neck imaging. Rule out underlying infection. (2) Leukocytosis Code(s): D72.829 - ELEVATED WHITE BLOOD CELL COUNT, UNSPECIFIED Status: Acute Assessment and Plan: Recently brought up brown sputum and reports episodes of dysphagia there is concern for possible aspiration pneumonia. CXR ordered Monitor WCC and check procalcitonin. Speech therapy consult ordered Keep NPO until evaluated (3) Mass of left side of neck Code(s): R22.1 - LOCALIZED SWELLING, MASS AND LUMP, NECK Status: Chronic Assessment and Plan: Undergoing chemotherapy. Consult Oncology, due to 2nd treatment tomorrow. (4) CML (chronic myelocytic leukemia) Code(s): C92.10 - CHRONIC MYELOID LEUK, BCR/ABL-POSITIVE, NOT ACHIEVE REMIS Status: Chronic Assessment and Plan: stable, as above. (5) HTN (hypertension) Code(s): I10 - ESSENTIAL (PRIMARY) HYPERTENSION Status: Chronic Assessment and Plan: Monitor BP Hold antihypertensives as BP on low side in ED. (6) CAD (coronary artery disease) Code(s): I25.10 - ATHSCL HEART DISEASE OF [place] CORONARY ARTERY W/O ANG PCTRS Status: Chronic Assessment and Plan: Resume home medications once verified. (7) Peripheral vascular disease Code(s): I73.9 - PERIPHERAL VASCULAR DISEASE, UNSPECIFIED Status: Chronic - Plan Plan: DVT prophylaxis with mechanical SCDs. CODE STATUS: FULL Consider palliative care consult re: goals of care and advanced directives discussion. Case discussed with attending who agrees with plan as above.
[2020-02-22 05:34] LABS: Troponin I 0.029 ng/mL (< 0.028)
[2020-02-22 06:36] LABS: SARS-CoV-2 MS2 Positive; SARS-CoV-2 N Gene Negative; SARS-CoV-2 S Gene Negative; SARS-CoV-2 by NAA Not Detected (NotDetected); SARS-CoV-2 orf1ab Negative
--- NOTE | 2020-02-22 07:44 | RAD ---
EXAM: CHEST TWO VIEWS 02/22/2020 7:41 AM HISTORY: Productive sputum and concern for aspiration pneumonia COMPARISON: Prior exam dated January 31, 2020 FINDINGS: Lungs: No acute airspace consolidation. Heart: Normal in size and contour. Pulmonary Vessels: Normal. Costophrenic Angles: Clear. Pneumothorax: None. Osseous Structures: Intact. Additional Findings: Right chest wall port is unchanged. IMPRESSION: No significant acute intrathoracic disease.
[2020-02-22] MEDS ORDERED: Famotidine/PF 20 mg/2ml Vial ONE (09:52)
[2020-02-22] MEDS: Famotidine/PF 20 mg/2ml Vial SLOW IVP SCH ×2 (09:56→20:12)
[2020-02-22] MEDS ORDERED: Morphine 2 MG/ML VIAL SLOW IVP PRN (11:34)
[2020-02-22 11:46] VITALS: BMI 19.8
[2020-02-22] MEDS ORDERED: diphenhydrAMINE 50 MG/ML VIAL IVP PRN (11:47)
[2020-02-22] MEDS: Sodium Chloride 0.9% 1,000 ML IV SCH (11:52)
[2020-02-22] MEDS ORDERED: Famotidine/PF 20 mg/2ml Vial SLOW IVP SCH (12:00)
[2020-02-22] MEDS ORDERED: RITUXIMAB ABBS IVPB SCH (12:00)
[2020-02-22] MEDS ORDERED: Dexamethasone Sod Phosphate 20 MG in Sodium Chloride 0.9% 50 ML IVPB SCH (12:00)
[2020-02-22] MEDS ORDERED: SODIUM CHLORIDE 0.9% IVPB SCH ×2 (12:00→17:15)
[2020-02-22] MEDS ORDERED: Iopamidol 370 76% 100 ML VIAL ONE (13:03)
--- NOTE | 2020-02-22 13:11 | PDOC.BPN ---
- Brief Progress Note Patient was seen examined at bedside. This is a 70 years ago -[place] gentleman who was admitted this morning for presyncopal episode. He had significant past medical history of CLL with large neck mass. His echo was normal, EKG showed no ST changes. His presyncopal episode may be related to vasovagal reaction, from a mass compressing on his carotid sinus, subsequently enhances the baroceptor firing rate, which in turn acitivate vagal activity. Pt is nonfocal on exam. Will follow carotid doppler. Oncology was consulted. Pending recommendation. Pt is NPO, pending speech eval, will start him on on some IVF hdyration and pain regimen.
--- NOTE | 2020-02-22 13:28 | ULT ---
BILATERAL CAROTID DUPLEX ULTRASOUND: Date: 02/22/2020 HISTORY: Syncope. History of large neck mass. FINDINGS: Real-time color Doppler evaluation of the right and left carotid systems was performed. This showed p laque formation bilaterally, slightly more prominent on the left. On the right side, peak systolic velocities of the common carotid were 97 cm/second. Internal carotid velocities were 88 cm/second and external carotid velocities were 96 cm/second. On the left side, peak systolic velocities of the common carotid were elevated at 166 cm/second. Inte rnal carotid velocities were somewhat diminished in the 44 cm/second range. External carotid velociti es were 113 cm/second. Left-sided neck masses have been noted on previous CT exams. The left vertebral artery was not visualized. There was antegrade flow on the right. IMPRESSION: Elevated flow within the left common carotid artery. The etiology of this is unclear. It could be rel ated to some compressive changes related to left neck mass. Somewhat diminished velocities are seen w ithin the left internal carotid artery. POS: BASIM
[2020-02-22] MEDS ORDERED: Palonosetron HCl 0.25 MG in Sodium Chloride 0.9% 50 ML IVPB SCH (17:00)
[2020-02-22] MEDS ORDERED: predniSONE 50 MG TAB PO SCH (17:00)
--- NOTE | 2020-02-22 17:12 | CON ---
DATE OF CONSULTATION: REASON FOR CONSULT: Lymphoma. HISTORY OF PRESENT ILLNESS: Mr. 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 He has had left cervical supraclavicular lymphadenopathy. He received his first dose of R-CHOP chemotherapy in late January initially showed some promise of reduction in size of mass, but unfortunately his left neck mass began to grow. He was seen yesterday in our clinic and was having some syncopal episodes, so he was sent to the ER for admission. He underwent a brain CT that showed no evidence of disease. A carotid Doppler study showed elevated flow within the left common carotid artery, which could be related to some compression changes from the left neck mass. The patient denies any complaints at this time. He has not had any syncopal episode since admission. No chest pain, fatigue, abdominal pain, diarrhea, or fevers. PAST MEDICAL HISTORY: 1. 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 2. Hypertension. 3. Coronary artery disease. 4. Chronic visual changes in his right eye. 5. GI bleed. PAST SURGICAL HISTORY: 1. Lymph node biopsy. 2. Eye surgery. 3. Bladder surgery. ALLERGIES: NO KNOWN DRUG ALLERGIES. HOME MEDICATIONS: 1. Clopidogrel. 2. Lipitor. 3. Prednisone. 4. Ecotrin. 5. Losartan. 6. Norvasc. 7. Allopurinol. FAMILY HISTORY: Noncontributory. SOCIAL HISTORY: Single. He has 3 children. Lives alone. No alcohol, tobacco, or illicit drug use. REVIEW OF SYSTEMS: 12-point review of systems is negative except for noted in HPI. PHYSICAL EXAMINATION: VITAL SIGNS: Temperature is 98, pulse is 96, respiratory rate 20, blood pressure is 175/78, he is 100% on room air. GENERAL: He is a well-developed, well-nourished male, in no acute distress. HEENT: Normocephalic, atraumatic. Left eye blindness. NECK: He has a large mass extending from his collarbone up to his ear. RESPIRATORY: Clear anterior. CV: Regular rate and rhythm. GI: Abdomen is soft and nontender. Bowel sounds are positive. EXTREMITIES: No clubbing or cyanosis. SKIN: No rash. HEMATOLOGICAL: No petechiae or purpura. NEUROLOGIC: Nonfocal. PERTINENT LABORATORY DATA AND X-RAYS: WBCs are 17.4, hemoglobin 11.5, hematocrit 34.3, platelets 321,000, he has 80% neutrophils, 15% lymphocytes. Sodium 133, potassium 4.5, chloride 100, CO2 of 19, BUN is 15, creatinine 0.86, calcium 9.2, bilirubin 0.5, AST is 19, ALT is 12, alkaline phosphatase is 127, serum total protein 6.7, albumin 3.7, globulin 3. Urine is negative. COVID-19 PCR is negative. Radiology, per HPI. ASSESSMENT: 1. 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 2. Syncopal episodes, likely secondary to left neck mass. DISCUSSION: The patient has been admitted for a 5-day chemotherapy called EPOCH-R. He will receive Neulasta support after treatment. We will check an LDH and uric acid as he is high risk for tumor lysis syndrome. He has had no syncopal episode since admission and this is likely due to his neck mass. Hopefully, he will respond quickly and will have symptomatic control before discharge. Case has been discussed in detail with Dr. Murillo. We will follow along with his hospital course. Thank you for the consult. Job ID: [id number]
[2020-02-22] MEDS ORDERED: PEGFILGRASTIM-JMDB 6 MG/0.6 ML SYRINGE SQ SCH (17:15)
[2020-02-22] MEDS ORDERED: CYCLOPHOSPHAMIDE IVPB SCH (17:15)
--- NOTE | 2020-02-22 17:39 | CT ---
CT NECK SOFT TISSUES WITH CONTRAST: 02/22/20 HISTORY: 70-year-old male with neck mass. COMPARISON: 12/19/19. FINDINGS: Biapical pulmonary bullae, right larger and more numerous than left. Additional high grade centrilobu lar emphysematous changes at apical portions of bilateral upper lobes. Previously, there were multiple mildly enlarged right cervical lymph nodes at multiple levels. These have become much larger, and are now conglomerated, abutting each other, difficult to separate from each other. For example, right level IIa and IIb conglomeration of lymph nodes currently measure approximately 6.2 x 3 x 3.5 cm. Similar size multiple severely enlarged right level III and IV lymph nodes, severely compressing and narrowing the right internal jugular vein, displacing it anteriorly. There is also a new round well circumscribed 2.5 cm right cystic necrotic component in the right cer vical lymphadenopathy tumor. Multiple individual moderately enlarged right level Vb supraclavicular l ymph nodes. This severe right cervical lymphadenopathy does not compress the right carotid artery. In the left neck, the previously very severe left cervical lymphadenopathy has grown massively larger , all confluent, matted, into one huge conglomeration that extends from the left skull base and TMJ, down to the left upper mediastinum, encasing the left common carotid artery beginning approximately 2 .5 cm superior to its origin from the aortic arch. This comprises involvement of all left level II, I II, IV, and V cervical lymph nodes. The left carotid bifurcation and left internal carotid artery are encased by the tumor. The left internal carotid artery is circumferentially diffusely narrow, greate r than on previous CT. The entire conglomeration is approximately 19 x 12 x 10 cm. There is a greater degree of large, very irregular necrotic components throughout the huge left tumor. There is a new finding of an approximately 2.5 x 3 x 3.5 cm lobular solid mass involving the right pa latine tonsil, new since the previous CT, which encroaches upon and narrows the oropharyngeal airway. Multilevel moderate to severe degenerative disc disease in the cervical spine. No destructive osseous lesion identified. IMPRESSION: 1. 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 2. There is tumor encasement of the left common carotid artery and left internal carotid artery such that the left internal carotid artery has become diffusely narrowed. 3. 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 4. Severe centrilobular emphysema and high grade paraseptal emphysema. POS: JIN
[2020-02-22] MEDS: SODIUM CHLORIDE 0.9% IVPB SCH ×2 (21:11→22:37)
[2020-02-22] MEDS: ETOPOSIDE IVPB SCH (21:11)
[2020-02-22] MEDS: DOXORUBICIN IVPB SCH (22:37)
[2020-02-23] MEDS: Sodium Chloride 0.9% 1,000 ML IV SCH ×2 (02:16→15:42)
[2020-02-23 05:56] LABS: #Lymphocytes 0.9 thou/uL (1.20-3.40); #Monocytes 0.1 thou/uL (0.11-0.59); #Neutrophils 7.4 thou/uL (1.40-6.50); %Eosinophils 0.2 % (0.0-10.0); %Lymphocytes 10.4 % (21.0-51.0); %Monocytes 1.7 % (0.0-10.0); %Neutrophils 87.6 % (42.0-75.0); Hemoglobin 10.6 g/dL (14.0-18.0); Mean Corpuscular Hemoglobin 28.8 pg (27.0-31.0); Mean Corpuscular Volume 84.5 fL (78.0-98.0); Mean Platelet Volume 7.1 fL (7.4-10.4); Platelet Count 288 thou/uL (130-400); RBC Distribution Width 13.9 % (11.5-14.5); Red Blood Cell (RBC) Count 3.67 mill/uL (4.70-6.10); White Blood Cell (WBC) Count 8.4 thou/uL (4.8-10.8)
[2020-02-23 06:15] LABS: ALT (SGPT) 9 U/L (8-55); AST (SGOT) 21 U/L (5-34); Albumin 3.3 g/dL (3.4-4.8); Alkaline Phosphatase 99 U/L (40-110); Anion Gap 17 mmol/L (10-20); BUN (Urea Nitrogen) 14 mg/dL (8.4-25.7); Bilirubin, Total 0.5 mg/dL (0.2-1.2); Calc. Creatinine Clearance 76 mL/min (70-130); Calcium 8.4 mg/dL (7.8-10.44); Carbon Dioxide 16 mmol/L (23-31); Chloride 103 mmol/L (98-107); Globulin 2.6 g/dL (2.4-3.5); Glucose 106 mg/dL (83-110); Potassium 4.2 mmol/L (3.5-5.1); Protein, Total 5.9 g/dL (5.8-8.1); Sodium 132 mmol/L (136-145); Uric Acid 6.8 mg/dL (3.5-7.2)
[2020-02-23] MEDS ORDERED: predniSONE 5 MG TAB PO SCH (07:45)
[2020-02-23] MEDS ORDERED: CYCLOPHOSPHAMIDE IVPB SCH (07:45)
[2020-02-23] MEDS ORDERED: SODIUM CHLORIDE 0.9% IVPB SCH (07:45)
[2020-02-23] MEDS ORDERED: predniSONE 50 MG TAB PO SCH (08:00)
[2020-02-23] MEDS: Famotidine/PF 20 mg/2ml Vial SLOW IVP SCH ×2 (08:23→19:42)
[2020-02-23] MEDS: Sulfameth/Trimethoprim DS 800-160mg TAB PO SCH (08:24)
[2020-02-23] MEDS ORDERED: Allopurinol 100 MG TAB PO SCH (09:00)
[2020-02-23] MEDS: Allopurinol 100 MG TAB PO SCH (10:08)
[2020-02-23] MEDS: Atorvastatin Calcium 20 MG TAB PO SCH (10:11)
[2020-02-23] MEDS: prednisoLONE 1% Ophth Susp 5 ml Bottle EA EYE SCH ×4 (10:12→19:43)
[2020-02-23] MEDS: Losartan 25 MG TAB PO SCH (10:12)
[2020-02-23] MEDS: Clopidogrel Bisulfate 75 MG TAB PO SCH (10:13)
[2020-02-23] MEDS: Amlodipine 10 MG TAB PO SCH ×2 (10:14→10:36)
[2020-02-23] MEDS: Sodium Chloride 1 GM TAB PO SCH ×3 (10:18→19:42)
[2020-02-23] MEDS: Timolol 0.5% Ophth Soln 5 ml Bottle EA EYE SCH ×3 (13:25→19:43)
--- NOTE | 2020-02-23 14:15 | PDOC.MOPN ---
Interval History: eating better, no pain. slept well. - Vital Signs Vital Signs: Vital Signs (12 hours) Temp Pulse Resp BP BP BP BP 02/23/20 13:25 92 146/69 H 02/23/20 12:00 99.0 F 92 18 146/69 H 02/23/20 10:36 107 H 146/66 H 02/23/20 08:00 02/23/20 07:15 107 H 16 146/66 H 02/23/20 07:12 105 H 16 158/78 H 02/23/20 07:08 97.3 F L 92 16 167/81 H 02/23/20 03:53 97.4 F L 94 16 148/74 H Pulse Ox 02/23/20 13:25 02/23/20 12:00 100 02/23/20 10:36 02/23/20 08:00 100 02/23/20 07:15 100 02/23/20 07:12 100 02/23/20 07:08 100 02/23/20 03:53 100 Weight Weight 137 lb - Physical Exam General: Alert, Oriented x3, No acute distress HEENT: Other (left neck mass, slightly smaller) Lungs: Clear to auscultation Cardiovascular: Regular rate Abdomen: Normal bowel sounds Extremities: No clubbing, No cyanosis, No edema, Normal pulses, No tenderness/swelling Neurological: Normal speech - Labs Result Diagrams: 02/23/20 05:29 02/23/20 05:29 Lab results: Laboratory Results - last 24 hr 02/23/20 05:29: Lactate Dehydrogenase 1280 H 02/23/20 05:29: Sodium 132 L, Potassium 4.2, Chloride 103, Carbon Dioxide 16 L, Anion Gap 17, BUN 14, Creatinine 0.78, Estimated GFR (MDRD) Greater than 90, Glucose 106, Uric Acid 6.8, Calcium 8.4, Total Bilirubin 0.5, AST 21, ALT 9, Alkaline Phosphatase 99, Serum Total Protein 5.9, Albumin 3.3 L, Globulin 2.6, Albumin/Globulin Ratio 1.3 02/23/20 05:29: Procalcitonin 0.06 02/23/20 05:29: WBC 8.4, RBC 3.67 L, Hgb 10.6 L, Hct 31.0 L, MCV 84.5, MCH 28.8, MCHC 34.0, RDW 13.9, Plt Count 288, MPV 7.1 L, Neutrophils % 87.6 H, Lymphocytes % 10.4 L, Monocytes % 1.7, Eosinophils % 0.2, Basophils % 0.0, Neutrophils # 7.4 H, Lymphocytes # 0.9 L, Monocytes # 0.1 L, Eosinophils # 0.0, Basophils # 0.0 02/22/20 15:30: Lactate Dehydrogenase 1019 H 02/22/20 15:30: Uric Acid 5.0 Status: lab reviewed by me A/P - Problem (1) Large cell (diffuse) non-Hodgkin's lymphoma Current Visit: No Code(s): C83.30 - DIFFUSE LARGE B-CELL LYMPHOMA, UNSPECIFIED SITE Status: Acute (2) CLL (chronic lymphocytic leukemia) Current Visit: No Code(s): C91.10 - CHRONIC LYMPHOCYTIC LEUK OF B-CELL TYPE NOT ACHIEVE REMIS Status: Chronic - Plan Plan: 1. C1D2 chemo with EPOCH-R, tolerated day 1 well 2. Continue IV fluids as high risk for TLS 3. daily CMP, LDH, uric acid
--- NOTE | 2020-02-23 15:40 | PDOC.HOSPP ---
- Subjective Subjective: Patient was seen examined at bedside. Discussed CT findings with the patient. He is so far tolerating his chemotherapy well. No fever - Objective Vital Signs & Weight: Vital Signs (12 hours) Temp Pulse Resp BP BP BP BP 02/23/20 13:25 92 146/69 H 02/23/20 12:00 99.0 F 92 18 146/69 H 02/23/20 10:36 107 H 146/66 H 02/23/20 08:00 02/23/20 07:15 107 H 16 146/66 H 02/23/20 07:12 105 H 16 158/78 H 02/23/20 07:08 97.3 F L 92 16 167/81 H 02/23/20 03:53 97.4 F L 94 16 148/74 H Pulse Ox 02/23/20 13:25 02/23/20 12:00 100 02/23/20 10:36 02/23/20 08:00 100 02/23/20 07:15 100 02/23/20 07:12 100 02/23/20 07:08 100 02/23/20 03:53 100 Weight Weight 137 lb I&O: 02/22/20 02/23/20 02/24/20 06:59 06:59 06:59 Intake Total 1530 Output Total 975 425 Balance 555 -425 Result Diagrams: 02/23/20 05:29 02/23/20 05:29 Radiology Reviewed by me: Yes EKG Reviewed by me: Yes Hospitalist ROS - Medication Medications: Active Medications Generic Name Dose Route Start Last Admin Trade Name Freq PRN Reason Stop Dose Admin Acetaminophen 650 mg 02/22/20 11:46 02/22/20 14:33 Acetaminophen 325 Mg Tab PO 650 mg WILLCALL PRN Administration Headache/Fever or Pain Allopurinol 100 mg 02/23/20 09:00 02/23/20 10:08 Allopurinol 100 Mg Tab PO Not Given DAILY BERNA Amlodipine Besylate 10 mg 02/23/20 09:00 02/23/20 10:36 Amlodipine 10 Mg Tab PO 10 mg DAILY BERNA Administration Atorvastatin Calcium 20 mg 02/23/20 09:00 02/23/20 10:11 Atorvastatin Calcium 20 Mg Tab PO 20 mg DAILY BERNA Administration Clopidogrel Bisulfate 75 mg 02/23/20 09:00 02/23/20 10:13 Clopidogrel Bisulfate 75 Mg Tab PO 75 mg DAILY BERNA Administration Diphenhydramine HCl 50 mg 02/22/20 11:47 02/22/20 14:34 Diphenhydramine 50 Mg/Ml Vial IVP 50 mg WILLCALL PRN Administration Itching & Insomnia Famotidine 20 mg 02/22/20 09:00 02/23/20 08:23 Famotidine/Pf 20 Mg/2ml Vial SLOW IVP 20 mg Q12HR BERNA Administration Sodium Chloride 1,000 mls @ 75 mls/hr 02/22/20 10:30 02/23/20 02:16 Normal Saline 0.9% IV 1,000 mls .[id number] BERNA Administration Dexamethasone Sodium Phosphate 52 mls @ 156 mls/hr 02/22/20 12:00 02/22/20 20:24 20 mg/ Sodium Chloride IVPB 52 mls WILLCALL BERNA Administration Doxorubicin HCl 18 mg/ Sodium 59 mls @ 0 mls/hr 02/22/20 12:00 02/22/20 22:37 Chloride IVPB 02/25/20 23:00 59 mls WILLCALL BERNA Administration As Directed Vincristine Sulfate 0.7 mg/ 50.7 mls @ 0 mls/hr 02/22/20 12:15 02/22/20 22:37 Sodium Chloride IVPB 02/25/20 23:00 50.7 mls WILLCALL BERNA Administration As Directed Etoposide 88 mg/ Sodium 504.4 mls @ 0 mls/hr 02/22/20 12:15 02/22/20 21:11 Chloride IVPB 02/25/20 23:00 504.4 mls WILLCALL BERNA Administration As Directed Losartan Potassium 100 mg 02/23/20 09:00 02/23/20 10:12 Losartan 25 Mg Tab PO 100 mg DAILY BERNA Administration Morphine Sulfate 2 mg 02/22/20 11:34 02/22/20 20:09 Morphine 2 Mg/Ml Vial SLOW IVP 2 mg Q3H PRN Administration Moderate Pain (4-6) Prednisolone Acetate 1 drop 02/23/20 09:00 02/23/20 13:23 Prednisolone 1% Ophth Susp 5 Ml Bottle EA EYE 1 drop QID BERNA Administration Sodium Chloride 10 ml 02/22/20 03:41 02/22/20 09:56 Flush - Normal Saline 10 Ml Syringe IVF 10 ml Q12HR PRN Administration Saline Flush Sodium Chloride 1 gm 02/23/20 09:00 02/23/20 14:21 Sodium Chloride 1 Gm Tab PO 1 gm TID BERNA Administration Timolol Maleate 1 drop 02/23/20 13:00 02/23/20 13:25 Timolol 0.5% Ophth Soln 5 Ml Bottle EA EYE 1 drp QID BERNA Administration Trimethoprim/Sulfamethoxazole 1 tab 02/23/20 09:00 02/23/20 08:24 Sulfameth/Trimethoprim Ds 800-160mg Tab PO 1 tab MWF BERNA Administration - Exam General Appearance: NAD Eye: PERRL ENT: normocephalic atraumatic Neck: supple Neck - other findings: large left side lymphadenopathy Heart: RRR Respiratory: CTAB Gastrointestinal: soft Extremities: no cyanosis Skin: normal turgor Hosp A/P - Plan The patient is an unfortunate 70 years old -[place] gentleman who has significant past medical history of CLL, with 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 He has significant large supraclavicular lymphadenopathy, presented to ED with syncopal episode. CLL with transformation to diffuse large B-cell lymphoma --Patient is so far tolerating day 1/5 chemotherapy --monitor for possible side effects. Further mgt as per oncology team Syncope - likely d/t to mass effect compressing on carotid sinus, causing hyperactive baroreceptor firing --Hopefully with chemotherapy will shrink the mass. HTN --BP stable, resume home meds CAD --no anginal symptoms, resumed home med DVT ppx: Sq Lovenox GI ppx: PPI
[2020-02-23] MEDS: Enoxaparin Sodium 40 MG/0.4 ML SYRINGE SC SCH (19:42)
[2020-02-23] MEDS: SODIUM CHLORIDE 0.9% IVPB SCH ×2 (21:56→23:00)
[2020-02-23] MEDS: ETOPOSIDE IVPB SCH (21:56)
[2020-02-23] MEDS: DOXORUBICIN IVPB SCH (23:00)
[2020-02-24] MEDS: HYDROcodone/Acetaminophen 5/325 mg Tablet PO PRN (02:28)
[2020-02-24 04:53] LABS: #Lymphocytes 1.4 thou/uL (1.20-3.40); #Monocytes 0.8 thou/uL (0.11-0.59); %Basophils 0.1 % (0.0-1.0); %Eosinophils 0.1 % (0.0-10.0); %Lymphocytes 15.4 % (21.0-51.0); %Monocytes 8.5 % (0.0-10.0); %Neutrophils 75.9 % (42.0-75.0); Hemoglobin 9.5 g/dL (14.0-18.0); Mean Corpuscular HGB CONC 33.4 g/dL (32.0-36.0); Mean Corpuscular Hemoglobin 28.5 pg (27.0-31.0); Mean Corpuscular Volume 85.1 fL (78.0-98.0); Mean Platelet Volume 7.3 fL (7.4-10.4); Platelet Count 282 thou/uL (130-400); RBC Distribution Width 13.9 % (11.5-14.5); Red Blood Cell (RBC) Count 3.34 mill/uL (4.70-6.10); White Blood Cell (WBC) Count 9.2 thou/uL (4.8-10.8)
[2020-02-24 05:14] LABS: ALT (SGPT) 9 U/L (8-55); AST (SGOT) 14 U/L (5-34); Alkaline Phosphatase 84 U/L (40-110); Anion Gap 13 mmol/L (10-20); BUN (Urea Nitrogen) 13 mg/dL (8.4-25.7); Bilirubin, Total 0.3 mg/dL (0.2-1.2); CK (CPK) 34 U/L (30-200); Calc. Creatinine Clearance 76 mL/min (70-130); Calcium 8.5 mg/dL (7.8-10.44); Carbon Dioxide 21 mmol/L (23-31); Chloride 105 mmol/L (98-107); Globulin 2.5 g/dL (2.4-3.5); Glucose 107 mg/dL (83-110); Magnesium 2.1 mg/dL (1.6-2.6); Potassium 4.1 mmol/L (3.5-5.1); Protein, Total 5.5 g/dL (5.8-8.1); Sodium 135 mmol/L (136-145); Uric Acid 4.6 mg/dL (3.5-7.2)
[2020-02-24] MEDS: Sodium Chloride 0.9% 1,000 ML IV SCH ×2 (05:36→20:14)
[2020-02-24] MEDS: Losartan 25 MG TAB PO SCH (09:09)
[2020-02-24] MEDS: Famotidine/PF 20 mg/2ml Vial SLOW IVP SCH ×2 (09:09→20:10)
[2020-02-24] MEDS: Aspirin 81 mg Enteric Coated Tablet PO SCH (09:10)
[2020-02-24] MEDS: Amlodipine 10 MG TAB PO SCH (09:10)
[2020-02-24] MEDS: Atorvastatin Calcium 20 MG TAB PO SCH (09:12)
[2020-02-24] MEDS: Allopurinol 100 MG TAB PO SCH (09:12)
[2020-02-24] MEDS: Clopidogrel Bisulfate 75 MG TAB PO SCH (09:12)
[2020-02-24] MEDS: predniSONE 50 MG TAB PO SCH (09:13)
[2020-02-24] MEDS: Timolol 0.5% Ophth Soln 5 ml Bottle EA EYE SCH ×4 (09:13→20:13)
[2020-02-24] MEDS: Sodium Chloride 1 GM TAB PO SCH ×3 (09:13→20:10)
[2020-02-24] MEDS: prednisoLONE 1% Ophth Susp 5 ml Bottle EA EYE SCH ×4 (09:14→20:13)
--- NOTE | 2020-02-24 10:30 | PDOC.HOSPP ---
- Subjective Encounter Date: 02/24/20 Encounter Time: 10:10 Subjective: Patient has no complaints. He has no nausea. He is tolerating his p.o. intake. He feels that his left-sided neck swelling seems to be going down. - Objective Vital Signs & Weight: Vital Signs (12 hours) Temp Pulse Resp BP BP BP BP 02/24/20 09:13 78 156/74 H 02/24/20 09:10 78 156/74 H 02/24/20 07:31 18 164/79 H 02/24/20 07:29 78 16 162/77 H 02/24/20 07:28 98.1 F 70 16 02/24/20 04:00 98.3 F 91 16 138/76 02/23/20 23:07 98.8 F 80 16 166/75 H BP Pulse Ox 02/24/20 09:13 02/24/20 09:10 02/24/20 07:31 99 02/24/20 07:29 99 02/24/20 07:28 156/74 H 98 02/24/20 04:00 100 02/23/20 23:07 100 Weight Weight 137 lb I&O: 02/23/20 02/24/20 02/25/20 06:59 06:59 06:59 Intake Total 1530 692 Output Total 975 675 Balance 555 17 Result Diagrams: 02/24/20 04:21 02/24/20 04:21 Hospitalist ROS - Medication Medications: Active Medications Generic Name Dose Route Start Last Admin Trade Name Freq PRN Reason Stop Dose Admin Acetaminophen 650 mg 02/22/20 11:46 02/22/20 14:33 Acetaminophen 325 Mg Tab PO 650 mg WILLCALL PRN Administration Headache/Fever or Pain Hydrocodone Bitart/Acetaminophen 1 tab 02/22/20 10:17 02/24/20 02:28 Hydrocodone/Acetaminophen 5/325 Mg Tablet PO 1 tab Q4H PRN Administration Pain Allopurinol 100 mg 02/23/20 09:00 02/24/20 09:12 Allopurinol 100 Mg Tab PO 100 mg DAILY BERNA Administration Amlodipine Besylate 10 mg 02/23/20 09:00 02/24/20 09:10 Amlodipine 10 Mg Tab PO 10 mg DAILY BERNA Administration Aspirin 81 mg 02/24/20 09:00 02/24/20 09:10 Aspirin 81 Mg Enteric Coated Tablet PO 81 mg DAILY BERNA Administration Atorvastatin Calcium 20 mg 02/23/20 09:00 02/24/20 09:12 Atorvastatin Calcium 20 Mg Tab PO 20 mg DAILY BERNA Administration Clopidogrel Bisulfate 75 mg 02/23/20 09:00 02/24/20 09:12 Clopidogrel Bisulfate 75 Mg Tab PO 75 mg DAILY BERNA Administration Diphenhydramine HCl 50 mg 02/22/20 11:47 02/22/20 14:34 Diphenhydramine 50 Mg/Ml Vial IVP 50 mg WILLCALL PRN Administration Itching & Insomnia Enoxaparin Sodium 40 mg 02/23/20 21:00 02/23/20 19:42 Enoxaparin Sodium 40 Mg/0.4 Ml Syringe SC 40 mg 2100 BERNA Administration Famotidine 20 mg 02/22/20 09:00 02/24/20 09:09 Famotidine/Pf 20 Mg/2ml Vial SLOW IVP 20 mg Q12HR BERNA Administration Sodium Chloride 1,000 mls @ 75 mls/hr 02/22/20 10:30 02/24/20 05:36 Normal Saline 0.9% IV 1,000 mls .[id number] BERNA Administration Dexamethasone Sodium Phosphate 52 mls @ 156 mls/hr 02/22/20 12:00 02/22/20 20:24 20 mg/ Sodium Chloride IVPB 52 mls WILLCALL BERNA Administration Doxorubicin HCl 18 mg/ Sodium 59 mls @ 0 mls/hr 02/22/20 12:00 02/23/20 23:00 Chloride IVPB 02/25/20 23:00 59 mls WILLCALL BERNA Administration As Directed Vincristine Sulfate 0.7 mg/ 50.7 mls @ 0 mls/hr 02/22/20 12:15 02/23/20 23:00 Sodium Chloride IVPB 02/25/20 23:00 50.7 mls WILLCALL BERNA Administration As Directed Etoposide 88 mg/ Sodium 504.4 mls @ 0 mls/hr 02/22/20 12:15 02/23/20 21:56 Chloride IVPB 02/25/20 23:00 504.4 mls WILLCALL BERNA Administration As Directed Losartan Potassium 100 mg 02/23/20 09:00 02/24/20 09:09 Losartan 25 Mg Tab PO 100 mg DAILY BERNA Administration Morphine Sulfate 2 mg 02/22/20 11:34 02/22/20 20:09 Morphine 2 Mg/Ml Vial SLOW IVP 2 mg Q3H PRN Administration Moderate Pain (4-6) Pantoprazole Sodium 40 mg 02/24/20 09:00 02/24/20 09:10 Pantoprazole 40 Mg Tab PO 40 mg DAILY BERNA Administration Prednisolone Acetate 1 drop 02/23/20 09:00 02/24/20 09:14 Prednisolone 1% Ophth Susp 5 Ml Bottle EA EYE 1 drop QID BERNA Administration Prednisone 100 mg 02/24/20 08:00 02/24/20 09:13 Prednisone 50 Mg Tab PO 100 mg QAM-WM BERNA Administration Sodium Chloride 10 ml 02/22/20 03:41 02/22/20 09:56 Flush - Normal Saline 10 Ml Syringe IVF 10 ml Q12HR PRN Administration Saline Flush Sodium Chloride 1 gm 02/23/20 09:00 02/24/20 09:13 Sodium Chloride 1 Gm Tab PO 1 gm TID BERNA Administration Timolol Maleate 1 drop 02/23/20 13:00 02/24/20 09:13 Timolol 0.5% Ophth Soln 5 Ml Bottle EA EYE 1 drp QID BERNA Administration Trimethoprim/Sulfamethoxazole 1 tab 02/23/20 09:00 02/23/20 08:24 Sulfameth/Trimethoprim Ds 800-160mg Tab PO 1 tab MWF BERNA Administration - Exam General Appearance: NAD, awake alert General - other findings: Significant size left-sided soft tissue due to lymphoma. Eye: PERRL ENT: normocephalic atraumatic Neck: supple Heart: RRR Respiratory: CTAB, normal chest expansion Neurological: no focal deficits Psychiatric: A&O x 3 Hosp A/P - Plan The patient is an unfortunate 70 years old -[place] gentleman who has significant past medical history of CLL, with 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 He has significant large supraclavicular lymphadenopathy, presented to ED with syncopal episode. 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 -He is on allopurinol, dexamethasone -We will hold the statin medicine for now. -He is also getting Bactrim every other day Wednesday He is on dexamethasone as well as prednisone 100 mg - it appears that while he is getting chemo he is expected to be on this regimen and will continue the same. I checked with Dr. Murillo. Syncope - likely d/t to mass effect compressing on carotid sinus, causing hyperactive baroreceptor firing --Hopefully chemotherapy will shrink the mass. HTN --BP stable, Norvasc and losartan -His blood pressure is little high this morning. Will add hydralazine as can be titrated easily. Along with as needed medications. Target systolic less than 140. CAD --no anginal symptoms, resumed home med -Patient on Plavix and continued along with aspirin DVT ppx: Sq Lovenox GI ppx: PPI
[2020-02-24] MEDS ORDERED: hydrALAZINE 20 MG/ML VIAL SLOW IVP PRN (10:37)
--- NOTE | 2020-02-24 11:59 | PDOC.MOPN ---
Interval History: Pt feeling ok today. No pain currently, sleeping well at night. Thinks his neck mass has shrunk. Denies N/V/night sweats. Appetite ok. - Vital Signs Vital Signs: Vital Signs (12 hours) Temp Pulse Resp BP BP BP BP 02/24/20 09:13 78 156/74 H 02/24/20 09:10 78 156/74 H 02/24/20 07:31 18 164/79 H 02/24/20 07:29 78 16 162/77 H 02/24/20 07:28 98.1 F 70 16 02/24/20 04:00 98.3 F 91 16 138/76 BP Pulse Ox 02/24/20 09:13 02/24/20 09:10 02/24/20 07:31 99 02/24/20 07:29 99 02/24/20 07:28 156/74 H 98 02/24/20 04:00 100 Weight Weight 137 lb - Physical Exam General: Alert, Oriented x3, Cooperative HEENT: Other (Giant left-sided neck mass) Lungs: Clear to auscultation, Normal air movement Cardiovascular: Regular rate, Normal S1 Neurological: Cranial nerves 3-12 NL - Labs Result Diagrams: 02/24/20 04:21 02/24/20 04:21 Lab results: Laboratory Results - last 24 hr 02/24/20 11:12: Uric Acid 4.0 02/24/20 11:12: Lactate Dehydrogenase 1084 H 02/24/20 04:21: Lactate Dehydrogenase 1059 H 02/24/20 04:21: WBC 9.2, RBC 3.34 L, Hgb 9.5 L, Hct 28.4 L, MCV 85.1, MCH 28.5, MCHC 33.4, RDW 13.9, Plt Count 282, MPV 7.3 L, Neutrophils % 75.9 H, Lymphocytes % 15.4 L, Monocytes % 8.5, Eosinophils % 0.1, Basophils % 0.1, Neutrophils # 7.0 H, Lymphocytes # 1.4, Monocytes # 0.8 H, Eosinophils # 0.0, Basophils # 0.0 02/24/20 04:21: Sodium 135 L, Potassium 4.1, Chloride 105, Carbon Dioxide 21 L, Anion Gap 13, BUN 13, Creatinine 0.78, Estimated GFR (MDRD) Greater than 90, Glucose 107, Uric Acid 4.6, Calcium 8.5, Magnesium 2.1, Total Bilirubin 0.3, AST 14, ALT 9, Alkaline Phosphatase 84, Creatine Kinase 34, Serum Total Protein 5.5 L, Albumin 3.0 L, Globulin 2.5, Albumin/Globulin Ratio 1.2 A/P - Problem (1) Large cell (diffuse) non-Hodgkin's lymphoma Current Visit: No Code(s): C83.30 - DIFFUSE LARGE B-CELL LYMPHOMA, UNSPECIFIED SITE Status: Acute - Plan Plan: C1D3 of da-EPOCH-R cont chemo monitor TLS labs - high-risk due to bulk, high LDH send G6PD just in case he requires Rasburicase in the future
[2020-02-24] MEDS: hydrALAZINE 25 MG TAB PO SCH ×3 (12:34→20:11)
[2020-02-24] MEDS: SODIUM CHLORIDE 0.9% IVPB SCH (16:31)
[2020-02-24] MEDS: ETOPOSIDE IVPB SCH (16:31)
[2020-02-24] MEDS: Enoxaparin Sodium 40 MG/0.4 ML SYRINGE SC SCH (20:10)
[2020-02-25] MEDS: DOXORUBICIN IVPB SCH (01:46)
[2020-02-25] MEDS: SODIUM CHLORIDE 0.9% IVPB SCH ×2 (01:46→21:21)
[2020-02-25 06:56] LABS: #Lymphocytes 1.6 thou/uL (1.20-3.40); #Monocytes 0.4 thou/uL (0.11-0.59); #Neutrophils 6.3 thou/uL (1.40-6.50); %Basophils 0.5 % (0.0-1.0); %Lymphocytes 19.1 % (21.0-51.0); %Monocytes 4.3 % (0.0-10.0); Hemoglobin 9.6 g/dL (14.0-18.0); Mean Corpuscular HGB CONC 33.8 g/dL (32.0-36.0); Mean Corpuscular Hemoglobin 28.5 pg (27.0-31.0); Mean Corpuscular Volume 84.2 fL (78.0-98.0); Mean Platelet Volume 7.1 fL (7.4-10.4); Platelet Count 314 thou/uL (130-400); RBC Distribution Width 13.9 % (11.5-14.5); Red Blood Cell (RBC) Count 3.37 mill/uL (4.70-6.10); White Blood Cell (WBC) Count 8.3 thou/uL (4.8-10.8)
[2020-02-25 07:16] LABS: ALT (SGPT) 8 U/L (8-55); AST (SGOT) 11 U/L (5-34); Albumin 3.1 g/dL (3.4-4.8); Alkaline Phosphatase 75 U/L (40-110); Anion Gap 13 mmol/L (10-20); BUN (Urea Nitrogen) 10 mg/dL (8.4-25.7); Bilirubin, Total 0.3 mg/dL (0.2-1.2); Calc. Creatinine Clearance 83 mL/min (70-130); Calcium 8.2 mg/dL (7.8-10.44); Carbon Dioxide 22 mmol/L (23-31); Chloride 103 mmol/L (98-107); Globulin 2.4 g/dL (2.4-3.5); Glucose 108 mg/dL (83-110); Potassium 3.3 mmol/L (3.5-5.1); Protein, Total 5.5 g/dL (5.8-8.1); Sodium 135 mmol/L (136-145); Uric Acid 3.9 mg/dL (3.5-7.2)
[2020-02-25] MEDS: Clopidogrel Bisulfate 75 MG TAB PO SCH (08:31)
[2020-02-25] MEDS: Allopurinol 100 MG TAB PO SCH (08:31)
[2020-02-25] MEDS: Amlodipine 10 MG TAB PO SCH (08:31)
[2020-02-25] MEDS: Famotidine/PF 20 mg/2ml Vial SLOW IVP SCH ×2 (08:32→21:22)
[2020-02-25] MEDS: Aspirin 81 mg Enteric Coated Tablet PO SCH (08:32)
[2020-02-25] MEDS: Sodium Chloride 1 GM TAB PO SCH ×3 (08:32→21:23)
[2020-02-25] MEDS: hydrALAZINE 25 MG TAB PO SCH ×4 (08:32→21:45)
[2020-02-25] MEDS: Losartan 25 MG TAB PO SCH (08:32)
[2020-02-25] MEDS: predniSONE 50 MG TAB PO SCH (08:32)
[2020-02-25] MEDS: Timolol 0.5% Ophth Soln 5 ml Bottle EA EYE SCH ×4 (08:33→21:45)
[2020-02-25] MEDS: prednisoLONE 1% Ophth Susp 5 ml Bottle EA EYE SCH ×4 (08:33→21:45)
[2020-02-25] MEDS ORDERED: Potassium Chloride 20 MEQ TAB PO SCH (09:00)
[2020-02-25] MEDS: Sodium Chloride 0.9% 1,000 ML IV SCH ×2 (09:43→21:24)
[2020-02-25 10:34] LABS: Bacteria/HPF None Seen HPF (None Seen); Bilirubin Negative (Negative); Blood, Urine Negative (Negative); Clarity Clear (Clear); Glucose, Urine (Dipstick) Normal (Negative); Ketone, Urine Negative (Negative); Leukocyte Negative Leu/uL (Negative); Nitrite Negative (Negative); Protein, Urine (Dipstick) Negative (Neg-Trace); RBC/HPF 0-3 HPF (0-3); Specific Gravity, Urine 1.011 (1.002-1.036); Squamous Epithelial None Seen HPF (0-3); Urobilinogen Normal mg/dL (Less than 2); WBC/HPF None Seen HPF (0-3)
--- NOTE | 2020-02-25 11:28 | PDOC.MOPN ---
Interval History: Pt hallucinated overnight/early this morning. Thought the staff wrapped him in chains during the night and then took him somewhere else. He admits he was confused at the time and is not confused now but calls me a liar when I tell him no one did that to him. He then refused to answer any further questions. Labs and U/A were checked and were fine. - Vital Signs Vital Signs: Vital Signs (12 hours) Temp Pulse Resp BP Pulse Ox 02/25/20 08:00 98.2 F 74 18 164/71 H 100 02/25/20 04:00 98.5 F 79 16 128/65 100 02/25/20 00:00 98.4 F 84 18 136/68 100 Weight Weight 137 lb - Physical Exam General: Alert, Other. negative: Cooperative HEENT: Other (giant left-sided neck mass) Lungs: Normal air movement Cardiovascular: Regular rate Neurological: Cranial nerves 3-12 NL - Labs Result Diagrams: 02/25/20 06:45 02/25/20 06:45 Lab results: Laboratory Results - last 24 hr 02/25/20 09:45: Urine Color Light-Yellow, Urine Clarity Clear, Urine pH 7.0, Ur Specific [place] 1.011, Urine Protein Negative, Urine Glucose (UA) Normal, Urine Ketones Negative, Urine Blood Negative, Urine Nitrite Negative, Urine Bilirubin Negative, Urine Urobilinogen Normal, Ur Leukocyte Esterase Negative, Urine RBC 0-3, Urine WBC None Seen, Ur Squamous Epith Cells None Seen, Urine Bacteria None Seen, Hyaline Casts 0-3 02/25/20 06:45: WBC 8.3, RBC 3.37 L, Hgb 9.6 L, Hct 28.4 L, MCV 84.2, MCH 28.5, MCHC 33.8, RDW 13.9, Plt Count 314, MPV 7.1 L, Neutrophils % 76.0 H, Lymphocytes % 19.1 L, Monocytes % 4.3, Eosinophils % 0.0, Basophils % 0.5, Neutrophils # 6.3, Lymphocytes # 1.6, Monocytes # 0.4, Eosinophils # 0.0, Basophils # 0.0 02/25/20 06:45: Lactate Dehydrogenase 950 H 02/25/20 06:45: Sodium 135 L, Potassium 3.3 L, Chloride 103, Carbon Dioxide 22 L, Anion Gap 13, BUN 10, Creatinine 0.72, Estimated GFR (MDRD) Greater than 90, Glucose 108, Uric Acid 3.9, Calcium 8.2, Total Bilirubin 0.3, AST 11, ALT 8, Alkaline Phosphatase 75, Serum Total Protein 5.5 L, Albumin 3.1 L, Globulin 2.4, Albumin/Globulin Ratio 1.3 02/24/20 11:12: Uric Acid 4.0 02/24/20 11:12: Lactate Dehydrogenase 1084 H A/P - Problem (1) Large cell (diffuse) non-Hodgkin's lymphoma Current Visit: No Code(s): C83.30 - DIFFUSE LARGE B-CELL LYMPHOMA, UNSPECIFIED SITE Status: Acute - Plan Plan: Continue chemo Hallucinations and AMS: unknown if 2/2 chemo as these typically do not cause neurologic problems. Labs and U/A ok. Will send for CT-head. If continues may need to check MRI-brain if CT unrevealing and check LP to r/o [employer] lymphomatous spread
--- NOTE | 2020-02-25 12:29 | PDOC.HOSPP ---
- Subjective Encounter Date: 02/25/20 Encounter Time: 08:45 Subjective: Patient doing well he is watching the TV. He is having a very minimal p.o. intake this morning. - Objective Vital Signs & Weight: Vital Signs (12 hours) Temp Pulse Resp BP Pulse Ox 02/25/20 08:00 98.2 F 74 18 164/71 H 100 02/25/20 04:00 98.5 F 79 16 128/65 100 Weight Weight 137 lb I&O: 02/24/20 02/25/20 02/26/20 06:59 06:59 06:59 Intake Total 692 2040 Output Total 675 3620 Balance 17 190 Result Diagrams: 02/25/20 06:45 02/25/20 06:45 Hospitalist ROS - Medication Medications: Active Medications Generic Name Dose Route Start Last Admin Trade Name Freq PRN Reason Stop Dose Admin Acetaminophen 650 mg 02/22/20 11:46 02/22/20 14:33 Acetaminophen 325 Mg Tab PO 650 mg WILLCALL PRN Administration Headache/Fever or Pain Hydrocodone Bitart/Acetaminophen 1 tab 02/22/20 10:17 02/24/20 02:28 Hydrocodone/Acetaminophen 5/325 Mg Tablet PO 1 tab Q4H PRN Administration Pain Allopurinol 100 mg 02/23/20 09:00 02/25/20 08:31 Allopurinol 100 Mg Tab PO 100 mg DAILY BERNA Administration Amlodipine Besylate 10 mg 02/23/20 09:00 02/25/20 08:31 Amlodipine 10 Mg Tab PO 10 mg DAILY BERNA Administration Aspirin 81 mg 02/24/20 09:00 02/25/20 08:32 Aspirin 81 Mg Enteric Coated Tablet PO 81 mg DAILY BERNA Administration Clopidogrel Bisulfate 75 mg 02/23/20 09:00 02/25/20 08:31 Clopidogrel Bisulfate 75 Mg Tab PO 75 mg DAILY BERNA Administration Diphenhydramine HCl 50 mg 02/22/20 11:47 02/22/20 14:34 Diphenhydramine 50 Mg/Ml Vial IVP 50 mg WILLCALL PRN Administration Itching & Insomnia Enoxaparin Sodium 40 mg 02/23/20 21:00 02/24/20 20:10 Enoxaparin Sodium 40 Mg/0.4 Ml Syringe SC 40 mg 2100 BERNA Administration Famotidine 20 mg 02/22/20 09:00 02/25/20 08:32 Famotidine/Pf 20 Mg/2ml Vial SLOW IVP 20 mg Q12HR BERNA Administration Hydralazine HCl 25 mg 02/24/20 13:00 02/25/20 08:32 Hydralazine 25 Mg Tab PO 25 mg QID BERNA Administration Sodium Chloride 1,000 mls @ 75 mls/hr 02/22/20 10:30 02/25/20 09:43 Normal Saline 0.9% IV 1,000 mls .[id number] BERNA Administration Dexamethasone Sodium Phosphate 52 mls @ 156 mls/hr 02/22/20 12:00 02/22/20 20:24 20 mg/ Sodium Chloride IVPB 52 mls WILLCALL BERNA Administration Doxorubicin HCl 18 mg/ Sodium 59 mls @ 0 mls/hr 02/22/20 12:00 02/25/20 01:46 Chloride IVPB 02/25/20 23:00 59 mls WILLCALL BERNA Administration As Directed Vincristine Sulfate 0.7 mg/ 50.7 mls @ 0 mls/hr 02/22/20 12:15 02/25/20 01:46 Sodium Chloride IVPB 02/25/20 23:00 50.7 mls WILLCALL BERNA Administration As Directed Etoposide 88 mg/ Sodium 504.4 mls @ 0 mls/hr 02/22/20 12:15 02/24/20 16:31 Chloride IVPB 02/25/20 23:00 504.4 mls WILLCALL BERNA Administration As Directed Losartan Potassium 100 mg 02/23/20 09:00 02/25/20 08:32 Losartan 25 Mg Tab PO 100 mg DAILY BERNA Administration Morphine Sulfate 2 mg 02/22/20 11:34 02/22/20 20:09 Morphine 2 Mg/Ml Vial SLOW IVP 2 mg Q3H PRN Administration Moderate Pain (4-6) Pantoprazole Sodium 40 mg 02/24/20 09:00 02/25/20 08:31 Pantoprazole 40 Mg Tab PO 40 mg DAILY BERNA Administration Prednisolone Acetate 1 drop 02/23/20 09:00 02/25/20 08:33 Prednisolone 1% Ophth Susp 5 Ml Bottle EA EYE 1 drop QID BERNA Administration Prednisone 100 mg 02/24/20 08:00 02/25/20 08:32 Prednisone 50 Mg Tab PO 100 mg QAM-WM BERNA Administration Sodium Chloride 10 ml 02/22/20 03:41 02/24/20 20:14 Flush - Normal Saline 10 Ml Syringe IVF 10 ml Q12HR PRN Administration Saline Flush Sodium Chloride 1 gm 02/23/20 09:00 02/25/20 08:32 Sodium Chloride 1 Gm Tab PO 1 gm TID BERNA Administration Timolol Maleate 1 drop 02/23/20 13:00 02/25/20 08:33 Timolol 0.5% Ophth Soln 5 Ml Bottle EA EYE 1 drp QID BERNA Administration Trimethoprim/Sulfamethoxazole 1 tab 02/23/20 09:00 02/23/20 08:24 Sulfameth/Trimethoprim Ds 800-160mg Tab PO 1 tab MWF BERNA Administration - Exam General Appearance: NAD, awake alert Eye: PERRL ENT: normocephalic atraumatic Neck: supple Heart: RRR Respiratory: CTAB, normal chest expansion Gastrointestinal: soft, normal bowel sounds Neurological: no focal deficits Musculoskeletal: generalized weakness Psychiatric: A&O x 3 Hosp A/P - Plan The patient is an unfortunate 70 years old -[place] gentleman who has significant past medical history of CLL, with 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 He has significant large supraclavicular lymphadenopathy, presented to ED with syncopal episode. 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 -He is on allopurinol, dexamethasone -We will hold the statin medicine for now. -He is also getting Bactrim every other day Wednesday He is on dexamethasone as well as prednisone 100 mg - it appears that while he is getting chemo he is expected to be on this regimen and will continue the same. I checked with Dr. Murillo. Syncope - likely d/t to mass effect compressing on carotid sinus, causing hyperactive baroreceptor firing --Hopefully chemotherapy will shrink the mass. HTN --BP stable, Norvasc and losartan -His blood pressure is little high this morning. Will add hydralazine as can be titrated easily. Along with as needed medications. Target systolic less than 140. CAD --no anginal symptoms, resumed home med -Patient on Plavix and continued along with aspirin DVT ppx: Sq Lovenox GI ppx: PPI
--- NOTE | 2020-02-25 13:06 | CT ---
CT BRAIN WITHOUT CONTRAST: Date: 02/25/2020 HISTORY: Altered mental status, confusion, hallucinations. COMPARISON: 02/21/2020. 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 The ventricular size is stable and the basila r cisterns are patent. No evidence of acute infarct, hemorrhage, midline shift, or abnormal extra-axial fluid collections ar e seen. The bony calvarium is intact. The visualized paranasal sinuses and mastoid air cells are well aerated. The partially visualized extensive necrotic adenopathy along the left neck is again seen. IMPRESSION: No CT evidence of acute intracranial process. POS: OFF
[2020-02-25] MEDS: HYDROcodone/Acetaminophen 5/325 mg Tablet PO PRN ×2 (14:47→18:27)
[2020-02-25] MEDS: ETOPOSIDE IVPB SCH (21:21)
[2020-02-25] MEDS: Enoxaparin Sodium 40 MG/0.4 ML SYRINGE SC SCH (21:23)
[2020-02-26] MEDS: SODIUM CHLORIDE 0.9% IVPB SCH (02:22)
[2020-02-26] MEDS: DOXORUBICIN IVPB SCH (02:22)
[2020-02-26 06:34] LABS: Phosphorus 2.4 mg/dL (2.3-4.7)
[2020-02-26 06:37] LABS: ALT (SGPT) 7 U/L (8-55); AST (SGOT) 10 U/L (5-34); Albumin 3.2 g/dL (3.4-4.8); Alkaline Phosphatase 71 U/L (40-110); Anion Gap 14 mmol/L (10-20); BUN (Urea Nitrogen) 11 mg/dL (8.4-25.7); Bilirubin, Total 0.4 mg/dL (0.2-1.2); Calc. Creatinine Clearance 84 mL/min (70-130); Calcium 8.5 mg/dL (7.8-10.44); Carbon Dioxide 22 mmol/L (23-31); Chloride 104 mmol/L (98-107); Globulin 2.3 g/dL (2.4-3.5); Glucose 81 mg/dL (83-110); Magnesium 2.2 mg/dL (1.6-2.6); Potassium 3.5 mmol/L (3.5-5.1); Protein, Total 5.5 g/dL (5.8-8.1); Sodium 136 mmol/L (136-145); Uric Acid 3.7 mg/dL (3.5-7.2)
[2020-02-26] MEDS ORDERED: predniSONE 50 MG TAB PO SCH (07:45)
[2020-02-26] MEDS ORDERED: CYCLOPHOSPHAMIDE IVPB SCH (07:45)
[2020-02-26] MEDS ORDERED: SODIUM CHLORIDE 0.9% IVPB SCH (07:45)
[2020-02-26] MEDS ORDERED: PALONOSETRON HCL 0.05 MG/ML 5 ML VIAL IVP SCH (07:45)
--- NOTE | 2020-02-26 08:19 | PDOC.MOPN ---
Interval History: no nausea, he has had some hallucinations at night. he is oriented this morning - Vital Signs Vital Signs: Vital Signs (12 hours) Temp Pulse Resp BP BP Pulse Ox 02/26/20 04:00 97.4 F L 79 16 168/79 H 100 02/25/20 21:45 75 172/75 H Weight Weight 137 lb - Physical Exam General: Alert, No acute distress HEENT: Other (laege L neck mass, dressed) Lungs: Clear to auscultation Cardiovascular: Regular rate Abdomen: Normal bowel sounds Extremities: No edema Skin: No rashes Neurological: Normal speech - Labs Result Diagrams: 02/25/20 06:45 02/26/20 05:59 Lab results: Laboratory Results - last 24 hr 02/26/20 05:59: Lactate Dehydrogenase 842 H 02/26/20 05:59: Sodium 136, Potassium 3.5, Chloride 104, Carbon Dioxide 22 L, Anion Gap 14, BUN 11, Creatinine 0.71, Estimated GFR (MDRD) Greater than 90, Glucose 81 L, Uric Acid 3.7, Calcium 8.5, Magnesium 2.2, Total Bilirubin 0.4, AST 10, ALT 7 L, Alkaline Phosphatase 71, Serum Total Protein 5.5 L, Albumin 3.2 L, Globulin 2.3 L, Albumin/Globulin Ratio 1.4 02/26/20 05:58: Phosphorus 2.4 02/25/20 09:45: Urine Color Light-Yellow, Urine Clarity Clear, Urine pH 7.0, Ur Specific [place] 1.011, Urine Protein Negative, Urine Glucose (UA) Normal, Urine Ketones Negative, Urine Blood Negative, Urine Nitrite Negative, Urine Bilirubin Negative, Urine Urobilinogen Normal, Ur Leukocyte Esterase Negative, Urine RBC 0-3, Urine WBC None Seen, Ur Squamous Epith Cells None Seen, Urine Bacteria None Seen, Hyaline Casts 0-3 A/P - Problem (1) Lightheaded Current Visit: Yes Code(s): R42 - DIZZINESS AND GIDDINESS Status: Acute (2) CAD (coronary artery disease) Current Visit: Yes Code(s): I25.10 - ATHSCL HEART DISEASE OF [place] CORONARY ARTERY W/O ANG PCTRS Status: Chronic (3) Mass of left side of neck Current Visit: Yes Code(s): R22.1 - LOCALIZED SWELLING, MASS AND LUMP, NECK Status: Chronic (4) Large cell (diffuse) non-Hodgkin's lymphoma Current Visit: No Code(s): C83.30 - DIFFUSE LARGE B-CELL LYMPHOMA, UNSPECIFIED SITE Status: Acute - Plan Plan: 1. complete c#1 of epoch-R, his diease was somewhat resistant to CHOP-R 2. stop prednisone after today, hopefully hallucinations are caused by this 3. plan to readmit for EPOCH-R in 3 weeks if he is responding 4. wound care/HH 5. f/u later this week in office
[2020-02-26] MEDS: Sodium Chloride 0.9% 1,000 ML IV SCH ×2 (09:06→20:06)
[2020-02-26] MEDS: HYDROcodone/Acetaminophen 5/325 mg Tablet PO PRN ×2 (09:07→14:30)
[2020-02-26] MEDS: predniSONE 50 MG TAB PO SCH (09:08)
[2020-02-26] MEDS: Losartan 25 MG TAB PO SCH (09:08)
[2020-02-26] MEDS: Aspirin 81 mg Enteric Coated Tablet PO SCH (09:08)
[2020-02-26] MEDS: Clopidogrel Bisulfate 75 MG TAB PO SCH (09:09)
[2020-02-26] MEDS: Amlodipine 10 MG TAB PO SCH (09:09)
[2020-02-26] MEDS: Sodium Chloride 1 GM TAB PO SCH ×3 (09:09→20:04)
[2020-02-26] MEDS: Allopurinol 100 MG TAB PO SCH (09:09)
[2020-02-26] MEDS: Famotidine/PF 20 mg/2ml Vial SLOW IVP SCH ×2 (09:09→20:05)
[2020-02-26] MEDS: hydrALAZINE 25 MG TAB PO SCH ×4 (09:09→20:04)
[2020-02-26] MEDS: prednisoLONE 1% Ophth Susp 5 ml Bottle EA EYE SCH ×4 (09:10→20:05)
[2020-02-26] MEDS: Timolol 0.5% Ophth Soln 5 ml Bottle EA EYE SCH ×4 (09:10→20:05)
[2020-02-26] MEDS: Sulfameth/Trimethoprim DS 800-160mg TAB PO SCH (09:19)
--- NOTE | 2020-02-26 12:44 | PDOC.HOSPP ---
- Subjective Encounter Date: 02/26/20 Encounter Time: 12:00 Subjective: Patient seen this afternoon and he is resting comfortably. Plan is to continue his chemo and finish up tonight and the possible start of Cytoxan in the morning and then if he is stable probable discharge later tomorrow evening. Patient lives with his daughter and states that he should be able to get help if needed at home. - Objective Vital Signs & Weight: Vital Signs (12 hours) Temp Pulse Resp BP Pulse Ox 02/26/20 12:00 98.6 F 85 18 131/63 98 02/26/20 09:10 70 02/26/20 09:09 70 02/26/20 08:00 98.5 F 70 18 175/77 H 99 02/26/20 04:00 97.4 F L 79 16 168/79 H 100 Weight Weight 137 lb I&O: 02/25/20 02/26/20 02/27/20 06:59 06:59 06:59 Intake Total 2040 1945 400 Output Total 1850 2400 Balance 190 -455 400 Result Diagrams: 02/25/20 06:45 02/26/20 05:59 Hospitalist ROS - Medication Medications: Active Medications Generic Name Dose Route Start Last Admin Trade Name Freq PRN Reason Stop Dose Admin Acetaminophen 650 mg 02/22/20 11:46 02/22/20 14:33 Acetaminophen 325 Mg Tab PO 650 mg WILLCALL PRN Administration Headache/Fever or Pain Hydrocodone Bitart/Acetaminophen 1 tab 02/22/20 10:17 02/26/20 09:07 Hydrocodone/Acetaminophen 5/325 Mg Tablet PO 1 tab Q4H PRN Administration Pain Allopurinol 100 mg 02/23/20 09:00 02/26/20 09:09 Allopurinol 100 Mg Tab PO 100 mg DAILY BERNA Administration Amlodipine Besylate 10 mg 02/23/20 09:00 02/26/20 09:09 Amlodipine 10 Mg Tab PO 10 mg DAILY BERNA Administration Aspirin 81 mg 02/24/20 09:00 02/26/20 09:08 Aspirin 81 Mg Enteric Coated Tablet PO 81 mg DAILY BERNA Administration Clopidogrel Bisulfate 75 mg 02/23/20 09:00 02/26/20 09:09 Clopidogrel Bisulfate 75 Mg Tab PO 75 mg DAILY BERNA Administration Diphenhydramine HCl 50 mg 02/22/20 11:47 02/22/20 14:34 Diphenhydramine 50 Mg/Ml Vial IVP 50 mg WILLCALL PRN Administration Itching & Insomnia Enoxaparin Sodium 40 mg 02/23/20 21:00 02/25/20 21:23 Enoxaparin Sodium 40 Mg/0.4 Ml Syringe SC 40 mg 2100 BERNA Administration Famotidine 20 mg 02/22/20 09:00 02/26/20 09:09 Famotidine/Pf 20 Mg/2ml Vial SLOW IVP 20 mg Q12HR BERNA Administration Hydralazine HCl 25 mg 02/24/20 13:00 02/26/20 09:09 Hydralazine 25 Mg Tab PO 25 mg QID BERNA Administration Sodium Chloride 1,000 mls @ 75 mls/hr 02/22/20 10:30 02/26/20 09:06 Normal Saline 0.9% IV 1,000 mls .[id number] BERNA Administration Dexamethasone Sodium Phosphate 52 mls @ 156 mls/hr 02/22/20 12:00 02/22/20 20:24 20 mg/ Sodium Chloride IVPB 52 mls WILLCALL BERNA Administration Losartan Potassium 100 mg 02/23/20 09:00 02/26/20 09:08 Losartan 25 Mg Tab PO 100 mg DAILY BERNA Administration Morphine Sulfate 2 mg 02/22/20 11:34 02/22/20 20:09 Morphine 2 Mg/Ml Vial SLOW IVP 2 mg Q3H PRN Administration Moderate Pain (4-6) Pantoprazole Sodium 40 mg 02/24/20 09:00 02/26/20 09:09 Pantoprazole 40 Mg Tab PO 40 mg DAILY BERNA Administration Prednisolone Acetate 1 drop 02/23/20 09:00 02/26/20 09:10 Prednisolone 1% Ophth Susp 5 Ml Bottle EA EYE 1 drop QID BERNA Administration Prednisone 100 mg 02/24/20 08:00 02/26/20 09:08 Prednisone 50 Mg Tab PO 100 mg QAM-WM BERNA Administration Sodium Chloride 10 ml 02/22/20 03:41 02/24/20 20:14 Flush - Normal Saline 10 Ml Syringe IVF 10 ml Q12HR PRN Administration Saline Flush Sodium Chloride 1 gm 02/23/20 09:00 02/26/20 09:09 Sodium Chloride 1 Gm Tab PO 1 gm TID BERNA Administration Timolol Maleate 1 drop 02/23/20 13:00 02/26/20 09:10 Timolol 0.5% Ophth Soln 5 Ml Bottle EA EYE 1 drp QID BERNA Administration Trimethoprim/Sulfamethoxazole 1 tab 02/23/20 09:00 02/26/20 09:19 Sulfameth/Trimethoprim Ds 800-160mg Tab PO 1 tab MWF BERNA Administration - Exam General Appearance: NAD, awake alert General - other findings: Left neck swelling with the dressing on on it. 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 He has significant large supraclavicular lymphadenopathy, presented to ED with syncopal episode. 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 -He is on allopurinol, dexamethasone -We will hold the statin medicine for now. -He is also getting Bactrim every other day Wednesday He is on dexamethasone as well as prednisone 100 mg - it appears that while he is getting chemo he is expected to be on this regimen and will continue the same. I checked with Dr. Murillo. Syncope - likely d/t to mass effect compressing on carotid sinus, causing hyper active baroreceptor firing --Hopefully chemotherapy will shrink the mass. HTN --BP stable, Norvasc and losartan -His blood pressure is little high this morning. Will add hydralazine as can be titrated easily. Along with as needed medications. Target systolic less than 140. CAD --no anginal symptoms, resumed home med -Patient on Plavix and continued along with aspirin DVT ppx: Sq Lovenox GI ppx: PPI Plan is to continue his chemo and finish up tonight and the possible start of Cytoxan in the morning and then if he is stable probable discharge later tomorrow evening. Patient lives with his daughter and states that he should be able to get help if needed at home. He needs wound care follow-up as well. Talk to the RN and request the pillowcase folder consult.
[2020-02-26] MEDS: Enoxaparin Sodium 40 MG/0.4 ML SYRINGE SC SCH (20:05)
[2020-02-27 05:30] LABS: ALT (SGPT) 10 U/L (8-55); AST (SGOT) 9 U/L (5-34); Albumin 3.2 g/dL (3.4-4.8); Alkaline Phosphatase 69 U/L (40-110); Anion Gap 11 mmol/L (10-20); BUN (Urea Nitrogen) 16 mg/dL (8.4-25.7); Bilirubin, Total 0.4 mg/dL (0.2-1.2); Calc. Creatinine Clearance 84 mL/min (70-130); Calcium 8.5 mg/dL (7.8-10.44); Carbon Dioxide 25 mmol/L (23-31); Chloride 102 mmol/L (98-107); Globulin 2.2 g/dL (2.4-3.5); Glucose 118 mg/dL (83-110); Potassium 3.4 mmol/L (3.5-5.1); Protein, Total 5.4 g/dL (5.8-8.1); Sodium 135 mmol/L (136-145); Uric Acid 3.7 mg/dL (3.5-7.2)
[2020-02-27] MEDS ORDERED: PALONOSETRON HCL 0.05 MG/ML 5 ML VIAL IVP SCH (07:00)
[2020-02-27] MEDS ORDERED: PEGFILGRASTIM-JMDB 6 MG/0.6 ML SYRINGE SQ SCH ×2 (07:45→12:00)
[2020-02-27 08:18] VITALS: TEMP 99.1
[2020-02-27] MEDS: Sodium Chloride 1 GM TAB PO SCH (08:28)
[2020-02-27] MEDS: predniSONE 50 MG TAB PO SCH (08:28)
[2020-02-27] MEDS: Allopurinol 100 MG TAB PO SCH (08:28)
[2020-02-27] MEDS: Famotidine/PF 20 mg/2ml Vial SLOW IVP SCH (08:29)
[2020-02-27] MEDS: hydrALAZINE 25 MG TAB PO SCH ×2 (08:29→12:55)
[2020-02-27] MEDS: Amlodipine 10 MG TAB PO SCH (08:29)
[2020-02-27] MEDS: Aspirin 81 mg Enteric Coated Tablet PO SCH (08:29)
[2020-02-27] MEDS: Losartan 25 MG TAB PO SCH (08:29)
[2020-02-27] MEDS: Clopidogrel Bisulfate 75 MG TAB PO SCH (08:29)
[2020-02-27] MEDS: Timolol 0.5% Ophth Soln 5 ml Bottle EA EYE SCH ×2 (08:30→12:56)
[2020-02-27] MEDS: prednisoLONE 1% Ophth Susp 5 ml Bottle EA EYE SCH ×2 (08:30→12:56)
[2020-02-27] MEDS: Sodium Chloride 0.9% 1,000 ML IV SCH (11:05)
[2020-02-27 12:40] LABS: G-6-PD,Quant 226 (127-427); G-6-PD,RBC 3.38 x10E6/uL (4.14-5.80)
--- NOTE | 2020-02-27 13:41 | PDOC.DS.DS ---
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 He has significant large supraclavicular lymphadenopathy, presented to ED with syncopal episode. 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 HTN --BP stable, Norvasc and losartan CAD --no anginal symptoms. -Patient on Plavix and continued along with aspirin Patient is stable to discharge home today. He will follow with his oncologist Dr. Murillo in the next week or so. Discharge time over 30 minutes. - Labs Lab Results: 02/25/20 06:45 02/27/20 04:49 Abnormal Lab Results - Last 48 hrs 02/25/20 06:45: RBC G6PD 3.38 L 02/26/20 05:59: Carbon Dioxide 22 L, ALT 7 L, Serum Total Protein 5.5 L, Albumin 3.2 L, Globulin 2.3 L 02/26/20 05:59: Lactate Dehydrogenase 842 H 02/27/20 04:49: Sodium 135 L, Potassium 3.4 L, Serum Total Protein 5.4 L, Albumin 3.2 L, Globulin 2.2 L 02/27/20 04:49: Lactate Dehydrogenase 742 H - Physical Exam Vitals: Vital Signs (12 hours) Temp Pulse Resp BP BP Pulse Ox 02/27/20 12:56 82 118/58 L 02/27/20 12:55 82 118/58 L 02/27/20 08:30 80 137/67 02/27/20 08:29 80 137/67 02/27/20 08:00 99.1 F 80 18 137/67 99 Weight Weight 137 lb Physical Exam: The patient was seen and examined on the day of discharge. He has no complaints this morning. Wound care would not be able to go to his home plus dressing changes can be done by the family . Plan - Discharge Medications Home Medications: Medication Instructions Recorded Confirmed Type Aspirin [Ecotrin Low Strength] 81 mg PO DAILY #0 11/15/16 02/23/20 Rx Atorvastatin Calcium [Lipitor] 20 mg PO DAILY 10/02/19 02/23/20 History Clopidogrel Bisulfate [Clopidogrel] 75 mg PO DAILY 10/02/19 02/23/20 History Amlodipine [Norvasc] 10 mg PO DAILY #30 tab 01/29/20 02/23/20 Rx prednisoLONE Acetate [Prednisolone 1 drop EA EYE QID 01/29/20 02/23/20 History Acetate] Allopurinol [Zyloprim] 100 mg PO DAILY #30 tablet 02/03/20 02/23/20 Rx Losartan Potassium 100 mg PO DAILY #30 tablet 02/03/20 02/23/20 Rx Sodium Chloride 1 gm PO TID #90 tab 02/03/20 02/23/20 Rx predniSONE 100 mg PO QAM-WM #4 tab 02/03/20 02/23/20 Rx Timolol Maleate/PF [Timolol 1 each OP QID 02/23/20 02/23/20 History Maleate 0.5% Eye Drop] prednisoLONE Acetate [Prednisolone 1 drop EA EYE QID 02/23/20 02/23/20 History Acetate] Allergies: aspirin Allergy (Verified 02/22/20 19:20) had GI bleed on full strength causes stomach ulcers - Discharge Instructions Discharge Instructions:: RETURN TO [facility] ON 02/28/20 @ 1:00PM FOR FULPHILA INJECTION. Activity:: Activity as Tolerated Nourishment:: Regular Diet - Follow up Plan Referrals: PROVIDER,NO PCP [Primary Care Provider] - Disposition: HOME Quality - Care Measures CORE MEASURES:: N/A
[2020-02-27 22:21] VITALS: BP 128/60
--- NOTE | 2020-03-02 16:51 | EKG ---
Test Reason : SYNCOPE Blood Pressure : / mmHG Vent. Rate : 095 BPM Atrial Rate : 095 BPM P-R Int : 110 ms QRS Dur : 070 ms QT Int : 360 ms P-R-T Axes : 072 047 032 degrees QTc Int : 452 ms Sinus rhythm with short NM Possible Left atrial enlargement Left ventricular hypertrophy Nonspecific ST and T wave abnormality Abnormal ECG Confirmed by SUKHWINDER LASSITER ([id number]), news editor DARRELL JOSE ([id number]) on 03/02/2020 4:50:43 PM Referred By: Confirmed By:SUKHWINDER Dotson
== END 2020-02-27 13:52 | disposition home or self-care (01) | DRG 841 ==
LOC: ERS 16:10 → ERHOLD 02-22 00:10 → ONC 02-22 11:18 → OBSVTOIN 02-22 19:41
PROVIDERS: ADMIT Internal Medicine; ATTEND Internal Medicine
DX: C83.30 Diffuse large B-cell lymphoma, unspecified site (principal); C92.10 Chronic myeloid leukemia, BCR/ABL-positive, not having achieved remission; C91.10 Chronic lymphocytic leukemia of B-cell type not having achieved remission; R22.1 Localized swelling, mass and lump, neck; I10 Essential (primary) hypertension; Z95.5 Presence of coronary angioplasty implant and graft; Z95.828 Presence of other vascular implants and grafts; Z98.42 Cataract extraction status, left eye; Z85.51 Personal history of malignant neoplasm of bladder; Z88.6 Allergy status to analgesic agent; Z79.82 Long term (current) use of aspirin; Z79.899 Other long term (current) drug therapy; Z92.21 Personal history of antineoplastic chemotherapy; E78.5 Hyperlipidemia, unspecified; I25.10 Atherosclerotic heart disease of native coronary artery without angina pectoris; I73.9 Peripheral vascular disease, unspecified; Z20.828 Contact with and (suspected) exposure to other viral communicable diseases; Z51.11 Encounter for antineoplastic chemotherapy
CPT/HCPCS: 36415; 70450; 70491; 71046; 80053; 81001; 81003; 81015; 82550; 82955; 83605; 83615; 83735; 84100; 84145; 84484; 84550; 85025; 85041; 87635; 93005; 93880; 96375; 96413; G0378; J1100; J1200; J1642; J1650; J2270; J2469; J7030; J7512; J9000; J9070; J9181; J9370; Q5115; Q9967; S0028; U0003

== ENCOUNTER 2020-02-28 12:33 | Day surgery (SDC) | payer MEDICARE | END 2020-02-28 13:07 | disposition home or self-care (01) | LOC: ONC/OP 12:33 | PROVIDERS: ATTEND Internal Medicine Hematology & Oncology | DX: Z51.89 Encounter for other specified aftercare (principal); C91.10 Chronic lymphocytic leukemia of B-cell type not having achieved remission; Z88.6 Allergy status to analgesic agent | CPT/HCPCS: 96372; J2505 ==

== ENCOUNTER 2020-03-15 19:40 | Inpatient (IN) | payer MEDICARE ==
[~2020-03-15 19:40] MED LIST: Iopamidol-370 76% 500 ML 1 ML ONE
[2020-03-15] MEDS ORDERED: cefTRIAXone\\ROCEPHIN 1 GM VIAL ONE (21:02)
[2020-03-15] MEDS ORDERED: Morphine 4 MG/ML VIAL ONE (21:08)
[2020-03-15 22:29] LABS: Band 14 % (5-11); Hemoglobin 9.4 g/dL (14.0-18.0); Lymphocytes 10 % (21-51); MDiff Complete? YES; Mean Corpuscular HGB CONC 33.4 g/dL (32.0-36.0); Mean Corpuscular Hemoglobin 29.2 pg (27.0-31.0); Mean Corpuscular Volume 87.4 fL (78.0-98.0); Mean Platelet Volume 7.7 fL (7.4-10.4); Monocytes 2 % (0-10); Neutrophil 74 % (42-75); Platelet Count 266 thou/uL (130-400); RBC Distribution Width 15.6 % (11.5-14.5); Red Blood Cell (RBC) Count 3.21 mill/uL (4.70-6.10); White Blood Cell (WBC) Count 21.6 thou/uL (4.8-10.8)
--- NOTE | 2020-03-15 22:55 | CT ---
EXAM: CT Neck Soft Tissue W Con PROVIDED CLINICAL HISTORY: Vomiting blood. Left neck swelling. Left neck mass. COMPARISON: 02/22/2020 FINDINGS: Bullous emphysematous changes are again seen in the upper lobes bilaterally greater on the right. Again noted are enlarged and conglomerated level 2, level 3, level 4, and level 5 lymph nodes on the right including a necrotic lymph node. These lymph nodes are overall similar to the prior exam. Again noted is compression of the right internal jugular vein with severe narrowing of the right inte rnal jugular vein. Right internal jugular vein is again displaced anteriorly. The oval-shaped mass involving the right palatine tonsil is again seen and again encroaches on and na rrows the oral pharyngeal airway. Low-density area is present at the more superior aspect of this lesion likely due to necrosis. There is prominent mucosal edema involving the soft palate and in the region of the lingual tonsils with areas of mild enhancement. This area of mucosal edema results in severe narrowing of the nasopharyngeal as well as oral pharyngeal airway. The massive conglomeration of cervical lymphadenopathy in the left neck is again seen which again ext ends from the level of the left temporomandibular joint inferiorly to infraclavicular location and into the left superior aspect of the mediastinum. This large mass with multiple areas of necrosis yolie sures 21 cm craniocaudal x12 cm transverse x11cm AP. Previous measurements of 19 cm craniocaudal x12 cm AP x11 cm transverse were obtained. The left common carotid artery as well as left internal/ex ternal carotid arteries are completely encased by this massive tumor/conglomeration of lymph nodes. This large tumor results in mass effect on the left palatine tonsil into the narrowing of the oral ph aryngeal airway. Enlarged left axillary lymph nodes are again seen. Right subclavian Mediport catheter remains in place. Vascular calcifications are seen in the carotid arteries and involving the aortic arch. Degenerative change seen in the spine, no destructive osseous lesion is appreciated. IMPRESSION: 1. Bilateral malignant cervical lymphadenopathy involving all levels of the neck with associated area s of necrosis within the lymphadenopathy. There is extremely massive lymphadenopathy with largest conglomeration of lymph nodes seen involving the left neck as described above and slightly larger in size compared to prior exam in craniocaudal dimensions. 2. Persistent encasement of the left common, internal, and external carotid arteries due to large mas s. 3. Mass in the region of the right palatine tonsil also present on prior exam. This again narrows the oral pharyngeal airway. 4. There is now prominent mucosal edema and hyperemia involving the region of the soft palate and ashok gual tonsil which results in severe narrowing of the oral pharyngeal and nasopharyngeal airways. 5. Mass effect and narrowing of the right internal jugular vein also seen on prior study. 6. Severe emphysematous changes upper lung zones.
--- NOTE | 2020-03-15 23:07 | CT ---
EXAM: CT chest, abdomen, and pelvis with IV contrast: HISTORY: Left neck swelling. Vomiting blood. COMPARISON: 12/19/2019 FINDINGS: CT THORAX: Lungs: Again noted are bullous emphysematous changes predominantly in the upper lobes. Dependent biba silar atelectasis is seen. No pulmonary nodule is seen. There is minimal patchy and linear density again seen in the right middle lobe which likely represents mild scarring. No consolidation is seen. Pleura: No pleural effusion. Lymph nodes: As noted on CT scan of the neck, there is massive lymphadenopathy at the base of the lef t neck with prominent conglomeration of necrotic lymph nodes at the base of the right neck. Mildly enlarged left axillary lymph nodes are present. Mediastinum: The large mass related to large conglomeration of lymph nodes left neck partially extend s into the upper mediastinum on the left. A right subclavian Mediport catheter is again seen. A subcentimeter hypodense lesion is seen in the left lobe of the thyroid gland. Vascular calcifications are seen in the thoracic aorta and involving the coronary arteries. Chest wall: Area of soft tissue density just anterior to the left sternoclavicular joint likely relat ed to an enlarged lymph node. CT ABDOMEN AND PELVIS: Liver: Within normal limits. Gallbladder: Within normal limits. \ Pancreas: Calcifications are seen in the region of the head and uncinate process of the pancreas whic h may be sequela of prior pancreatitis. Spleen: Within normal limits. Adrenal glands: Within normal limits. Kidneys: Within normal limits. Urinary Bladder: The urinary bladder is unremarkable. Reproductive organs: Within normal limits for patient's age. Vessels: Dense vascular calcifications and atherosclerotic plaque is seen in the abdominal aorta and involving the iliac arteries. The dense vascular calcifications in the left common iliac artery obscuring the lumen. There is suggestion of occlusion of the right common iliac artery. There is mode rate to severe narrowing involving the junction of the right external iliac and common femoral artery. Bowel: Loops of small bowel are normal in caliber. The appendix is visualized and normal in caliber. Adenopathy:No enlarged lymph nodes are seen in the abdomen or pelvis. Peritoneum: No free fluid or fluid collection is seen. No free intraperitoneal gas is identified. Abdominal wall: There is suggestion of bilateral hydroceles. Osseous structures: Right convex scoliosis thoracolumbar spine is again present with degenerative aj nges in the spine. No suspicious lytic or sclerotic osseous lesions are identified. IMPRESSION: 1. No acute findings are seen in the chest, abdomen, or pelvis. 2. Severe emphysematous changes in the upper lobes. 3. Suggested occlusion versus severe narrowing of the right common iliac artery with dense vascular c alcifications in the abdominal aorta and involving the iliac arteries. The lumen of the left common iliac artery is obscured due to dense vascular calcifications, and there is probably at least severe narrowing of the left common iliac artery. 4. Lymphadenopathy at the base of the neck bilaterally including massive lymphadenopathy on the left. These findings were described on CT scan of the neck.
[2020-03-15] MEDS ORDERED: Ondansetron ODT 4 MG TAB PO PRN (23:35)
[2020-03-15] MEDS ORDERED: Acetaminophen 650 MG Suppository PR PRN (23:35)
[2020-03-15] MEDS ORDERED: Ondansetron PF 4 MG/2 ML Vial IVP PRN (23:35)
[2020-03-15] MEDS ORDERED: Guaifenesin DM 100-10/5 ML UDCUP PO PRN (23:35)
--- NOTE | 2020-03-15 23:41 | PDOC.HHP ---
Hospitalist HPI - History of Present Illness hematemesis History of Present Illness: Case of an 70y/o male with a pmhx of b cell lymphoma, htn, cad, bladder ca and hx of PUD transfer from [facility] in [place] where he presented after an episode hematemesis. He is currently on chemotherapy has received 2 treatments and is scheduled to have his next treatment next week. apparently patient was on his usual state of health until today when he started with episode of vomiting which were bright red blood and had an episode on the ED of melena for which hospitalit was called for further evaluation and management. Patient does have a history of gastric ulcers and does have a history of GI bleed. vomiting was accompanied by some mild epigastric pain that is not currently present Hospitalist ROS - Review of Systems All other systems reviewed; all pertinent +/- noted in HPI/Subj Hospitalist History - Past Surgical History Past Surgical History: reports: Cholecystectomy Other Surgical History: multiple back surgeries - Family History Family History: reports: no pertinent history - Social History Smoking Status: Never smoker Alcohol: reports: None Drugs: reports: none - Exam General Appearance: NAD, awake alert Eye: PERRL, anicteric sclera ENT: normocephalic atraumatic, no oropharyngeal lesions Neck - other findings: massive L neck mass Heart: RRR, no murmur, no gallops Respiratory: CTAB, no wheezes, no rales Gastrointestinal: soft, non-tender, non-distended Extremities: no cyanosis, no clubbing, no edema Skin: normal turgor, no lesions, no rashes Neurological: cranial nerve grossly intact, normal sensation to touch Musculoskeletal: normal tone, normal strength Psychiatric: normal affect, normal behavior, A&O x 3 Hospitalist Results - Labs Result Diagrams: 03/15/20 21:54 Lab results: WBC 21.6 thou/uL (4.8-10.8) H 03/15/20 21:54 Hgb 9.4 g/dL (14.0-18.0) L 03/15/20 21:54 Hct 28.1 % (42.0-52.0) L 03/15/20 21:54 MCV 87.4 fL (78.0-98.0) 03/15/20 21:54 Plt Count 266 thou/uL (130-400) 03/15/20 21:54 Band Neuts % (Manual) 14 % (5-11) H 03/15/20 21:54 Hospitalist H&P A/P - Problem (1) GI bleed Code(s): K92.2 - GASTROINTESTINAL HEMORRHAGE, UNSPECIFIED Status: Acute (2) Chest pain Code(s): R07.9 - CHEST PAIN, UNSPECIFIED Status: Acute (3) Peripheral vascular disease Code(s): I73.9 - PERIPHERAL VASCULAR DISEASE, UNSPECIFIED Status: Chronic (4) Large cell (diffuse) non-Hodgkin's lymphoma Code(s): C83.30 - DIFFUSE LARGE B-CELL LYMPHOMA, UNSPECIFIED SITE Status: Acute (5) CAD (coronary artery disease) Code(s): I25.10 - ATHSCL HEART DISEASE OF [place] CORONARY ARTERY W/O ANG PCTRS Status: Chronic - Plan Plan: case of an 70y/o male with the stated pmhx who presents with gi bleeding gi bleeding - episode of hematemesis + melena - hx of PUD - will start ppis q 12 hr - npo - gi consult - will start prophylactically rocephin - npo - hg q 8hr chest pain - more epigastric then chest - initial troponin negative, will trend lymphoma - consult oncology htn - holding medication in the setting of gi bleed
[2020-03-16 00:12] LABS: Troponin I 0.019 ng/mL (< 0.028)
[2020-03-16] MEDS: Sodium Chloride 0.9% 1,000 ML IV SCH (02:03)
[2020-03-16] MEDS: HYDROcodone/Acetaminophen 5/325 mg Tablet PO PRN ×3 (02:04→19:36)
[2020-03-16 02:18] VITALS: BMI 18.9
[2020-03-16 04:56] LABS: ALT (SGPT) 11 U/L (8-55); AST (SGOT) 19 U/L (5-34); Albumin 3.5 g/dL (3.4-4.8); Alkaline Phosphatase 108 U/L (40-110); Anion Gap 18 mmol/L (10-20); BUN (Urea Nitrogen) 25 mg/dL (8.4-25.7); Bilirubin, Total 0.3 mg/dL (0.2-1.2); Calc. Creatinine Clearance 74 mL/min (70-130); Calcium 8.7 mg/dL (7.8-10.44); Carbon Dioxide 19 mmol/L (23-31); Chloride 102 mmol/L (98-107); Globulin 2.6 g/dL (2.4-3.5); Glucose 164 mg/dL (83-110); Potassium 4.7 mmol/L (3.5-5.1); Protein, Total 6.1 g/dL (5.8-8.1); Sodium 134 mmol/L (136-145)
[2020-03-16 04:57] LABS: Troponin I 0.024 ng/mL (< 0.028)
[2020-03-16 07:05] LABS: Hemoglobin 7.8 g/dL (14.0-18.0)
[2020-03-16] MEDS ORDERED: FLU VACC QS2020-21(65YR UP)/PF 240 MCG/0.7 ML SYRINGE IM ONE (09:00)
[2020-03-16] MEDS ORDERED: Pantoprazole 40 MG VIAL IVP SCH ×2 (09:00→12:00)
--- NOTE | 2020-03-16 10:04 | PDOC.HOSPP ---
- Subjective Encounter Date: 03/16/20 Encounter Time: 10:02 Subjective: Mr. Cornejo was seen today in follow-up of GI bleed. He says he feels ok today. He notes some difficulty with pain in his mouth when he tried to chew. He believes there may be some bone fragments there. He says he saw a dentists, who told him there was nothing there. - Objective Vital Signs & Weight: Vital Signs (12 hours) Temp Pulse Resp BP Pulse Ox 03/16/20 08:25 98.6 F 98 15 147/70 H 100 03/16/20 04:00 98.3 F 103 H 13 124/67 100 03/16/20 01:30 99 03/16/20 01:25 97.8 F 118 H 22 H 179/81 H 99 03/15/20 23:36 99 Weight Weight 132 lb 0.91 oz I&O: 03/15/20 03/16/20 03/17/20 06:59 06:59 06:59 Intake Total 300 Output Total 200 Balance 100 Result Diagrams: 03/16/20 06:50 03/16/20 03:14 Hospitalist ROS - Medication Medications: Active Medications Generic Name Dose Route Start Last Admin Trade Name Freq PRN Reason Stop Dose Admin Hydrocodone Bitart/Acetaminophen 1 tab 03/15/20 23:35 03/16/20 02:04 Hydrocodone/Acetaminophen 5/325 Mg Tablet PO 1 tab Q4H PRN Administration Moderate Pain (4-6) Sodium Chloride 1,000 mls @ 50 mls/hr 03/15/20 23:45 03/16/20 02:03 Normal Saline 0.9% IV 1,000 mls .Q20H BERNA Administration Pantoprazole Sodium 40 mg 03/16/20 09:00 03/16/20 08:32 Pantoprazole 40 Mg Vial IVP 40 mg BID BERNA Administration Sodium Chloride 10 ml 03/15/20 23:35 03/16/20 02:03 Flush - Normal Saline 10 Ml Syringe IVF 10 ml PRN PRN Administration Saline Flush - Exam Eye: PERRL, anicteric sclera ENT: no oropharyngeal lesions ENT - other findings: adentulous Neck - other findings: + massive adenopathy, on the left Heart: RRR, no gallops, no rubs, murmur present, II/IV Respiratory: CTAB, no wheezes, no rales, no ronchi, normal chest expansion, no tachypnea, normal percussion Gastrointestinal: soft, non-tender, non-distended, normal bowel sounds, no palpable masses, no hepatomegaly Extremities: no cyanosis, no clubbing, no edema Hosp A/P (1) GI bleed Code(s): K92.2 - GASTROINTESTINAL HEMORRHAGE, UNSPECIFIED Status: Acute (2) Large cell (diffuse) non-Hodgkin's lymphoma Code(s): C83.30 - DIFFUSE LARGE B-CELL LYMPHOMA, UNSPECIFIED SITE Status: Acute (3) CAD (coronary artery disease) Code(s): I25.10 - ATHSCL HEART DISEASE OF [place] CORONARY ARTERY W/O ANG PCTRS Status: Chronic - Plan * GI- bleed- will continue PPI IV q12. Continue to monitor his H&H and transfuse as needed * Await GI evaluation * Trouble with chewing- this may be an effect of the massive adenopathy on the left side of his neck. Consider Speech Therapy Evaluation once he is able to tolerate p.o. * CAD- stable * B- Cell Lymphoma
[2020-03-16 10:16] LABS: SARS-CoV-2 MS2 Positive; SARS-CoV-2 N Gene Negative; SARS-CoV-2 S Gene Negative; SARS-CoV-2 by NAA Not Detected (NotDetected); SARS-CoV-2 orf1ab Negative
[2020-03-16] MEDS: Acetaminophen 325 MG TAB PO PRN (11:10)
[2020-03-16] MEDS: Pantoprazole 80 MG in Sodium Chloride 0.9% 100 ML IVPB SCH (13:10)
--- NOTE | 2020-03-16 13:33 | PDOC.CONS ---
- Consultation Encounter Date: 03/16/20 Encounter Time: 13:33 ENT Consultation History Reason for Consult: Neck mass, airway concerns HPI: Pt is a 70 y/o male with CLL and large associated left neck mass admitted for GI bleed last night who had been until last night on ASA and Plavix for a history of stent x 2. ENT was contacted by gastroenterology for further evaluation in light of possible need for endoscopy today and concern for airway management. Pt reports he is able to breathe pretty well currently and he denies dyspnea. He does mention the large left neck mass sometimes makes him feel sometimes like his head is splitting when it swells up. He feels pretty well at the moment. He has not had any further hematemesis this morning and they are awaiting a repeat stool sample. PMH: leukemia, HTN, stomach ulcers, bladder CA Physical Exam Vitals: Vital Signs - Most Recent Temp Pulse Resp BP Pulse Ox 98.7 F 94 12 132/64 97 03/16/20 11:04 03/16/20 11:04 03/16/20 11:04 03/16/20 11:04 03/16/20 11:04 General: mildly lethargic, NAD Voice: fairly normal, good communication Head/Face: notable for neck mass extending to left head/face Eyes: right eye scarring/blind Ears: externally normal Nose: externally normal Oral Cavity: normal Oropharynx: narrow with tonsillar and base of tongue lingual tonsillar hypertrophy Neck: massive left neck mass with rightward shift of airway noted. Thyroid cartilage palpable. Respiratory: no dyspnea on room air Data Review Imaging: CT neck reviewed [id number] cm mass of left neck with central necrosis as well as multiple other large areas of adenopathy. There is no excess tissue overlying the cricothyroid membrane but there is adenopathy overlying the trachea. The trachea and larynx are shifted to the right because of the bulky mass. No visible airway is seen in the oropharynx because of adenotonsillar (Waldeyer's ring) hypertrophy, although the hypopharynx and supraglottic region is fairly patent. Labs: Laboratory Last Values WBC 21.6 thou/uL (4.8-10.8) H 03/15/20 21:54 RBC 3.21 mill/uL (4.70-6.10) L 03/15/20 21:54 Hgb 7.8 g/dL (14.0-18.0) L 03/16/20 06:50 Hct 28.1 % (42.0-52.0) L 03/15/20 21:54 MCV 87.4 fL (78.0-98.0) 03/15/20 21:54 MCH 29.2 pg (27.0-31.0) 03/15/20 21:54 MCHC 33.4 g/dL (32.0-36.0) 03/15/20 21:54 RDW 15.6 % (11.5-14.5) H 03/15/20 21:54 Plt Count 266 thou/uL (130-400) 03/15/20 21:54 MPV 7.7 fL (7.4-10.4) 03/15/20 21:54 Neutrophils % (Manual) 74 % (42-75) 03/15/20 21:54 Band Neuts % (Manual) 14 % (5-11) H 03/15/20 21:54 Lymphocytes % (Manual) 10 % (21-51) L 03/15/20 21:54 Monocytes % (Manual) 2 % (0-10) 03/15/20 21:54 Sodium 134 mmol/L (136-145) L 03/16/20 03:14 Potassium 4.7 mmol/L (3.5-5.1) 03/16/20 03:14 Chloride 102 mmol/L (98-107) 03/16/20 03:14 Carbon Dioxide 19 mmol/L (23-31) L 03/16/20 03:14 Anion Gap 18 mmol/L (10-20) 03/16/20 03:14 BUN 25 mg/dL (8.4-25.7) 03/16/20 03:14 Creatinine 0.78 mg/dL (0.7-1.3) 03/16/20 03:14 Estimated GFR (MDRD) Greater than 90 03/16/20 03:14 Glucose 164 mg/dL (83-110) H 03/16/20 03:14 Calcium 8.7 mg/dL (7.8-10.44) 03/16/20 03:14 Total Bilirubin 0.3 mg/dL (0.2-1.2) 03/16/20 03:14 AST 19 U/L (5-34) 03/16/20 03:14 ALT 11 U/L (8-55) 03/16/20 03:14 Alkaline Phosphatase 108 U/L (40-110) 03/16/20 03:14 Troponin I 0.024 ng/mL (< 0.028) 03/16/20 03:14 Serum Total Protein 6.1 g/dL (5.8-8.1) 03/16/20 03:14 Albumin 3.5 g/dL (3.4-4.8) 03/16/20 03:14 Globulin 2.6 g/dL (2.4-3.5) 03/16/20 03:14 Albumin/Globulin Ratio 1.3 g/dL (1.2-2.2) 03/16/20 03:14 SARS-CoV-2 (PCR) Not Detected (NotDetected) 03/16/20 02:30 Blood Type O POSITIVE 03/15/20 21:54 Antibody Screen NEGATIVE 03/15/20 21:54 A/P 70-year-old male with GI bleed recently on ASA/Plavix with large neck mass and very high risk for anesthesia Recommend deferring endoscopy and management with transfusion as needed; likely to improve current coagulopathy with discontinuation of ASA/Plavix over the next 24-48 hours. Cricothyrotomy or fiberoptic intubation could establish the airway but risks airway loss; cricothyrotomy may risk additional bleeding into the trachea/lungs that is challenging to control; conversion to tracheotomy may not be possible with pretracheal adenopathy and abnormal coagulation Consider Palliative Care consultation Please call ENT with any questions Manuel Diaz MD (c) [phone]
[2020-03-16] MEDS ORDERED: Lidocaine Viscous Sol 2% 15 ml UD Cup SSP PRN (15:09)
--- NOTE | 2020-03-16 19:00 | CON ---
DATE OF CONSULTATION: 03/16/2020 CHIEF COMPLAINT: Vomited blood. HISTORY OF PRESENT ILLNESS: Mr. Cornejo is a 70-year-old man with a massive lymphoma mass in his left neck, who vomited red blood yesterday and was brought to the emergency room for further evaluation. He has passed a couple of black stools as well. He has had no further vomiting today. He has had some mild intermittent epigastric pain, but none currently. He has a history of lymphoma for which he has received a second course of chemotherapy unfortunately with poor response so far. He has been taking aspirin and Plavix and states that he last had a coronary stent placed around a year ago. He has been on pantoprazole daily. He had upper endoscopy by Dr. Meehan back in 2017 with dilation of a pyloric stenosis to 15 mm with a balloon dilator. He did have ulcerations around his pylorus at that time. He has remained on proton pump inhibitor since then. He has had no bleeding recently. PAST MEDICAL HISTORY: History of CLL that was converted to a higher grade lymphoma with a large mass in his left neck with associated local compression of the structures in the area. Hypertension, hyperlipidemia, and coronary artery disease, status post stent. He believes most recently close to year ago, history of bladder cancer and peripheral vascular disease. He has a history of pyloric stenosis and ulcer that is required balloon dilation in the past for which he has had GI bleed in the past. Blindness. PAST SURGICAL HISTORY: Bladder surgery, eye surgery. He has coronary stents and peripheral vascular stents in his legs as well. He has had a biopsy of his neck mass, balloon dilation of pyloric stenosis, MediPort placement. FAMILY HISTORY: Negative for GI malignancies. SOCIAL HISTORY: No alcohol, tobacco, or drugs. ALLERGIES: NO KNOWN DRUG ALLERGIES. MEDICATIONS: Prior to admission; 1. Aspirin 81 mg daily. 2. Clopidogrel 75 mg daily. 3. Pantoprazole 40 mg daily. 4. Losartan. 5. Atorvastatin. 6. Amlodipine. 7. Allopurinol. REVIEW OF SYSTEMS: Positive for pain in his left jaw when he was swallowing over the last few days and he has not eaten much over this time period. He has been able to swallow liquids adequately. Review of systems is negative x10 systems reviewed except as stated in History of Present Illness. PHYSICAL EXAMINATION: VITAL SIGNS: Temperature 98.7, pulse 94, and blood pressure 132/64. GENERAL: He is in no acute distress. He is alert and oriented x3. HEENT: Oropharynx is clear without lesions. He has a massive tumor in his left neck. LUNGS: Clear to auscultation bilaterally. HEART: Regular rate and rhythm without murmur. ABDOMEN: Soft, nontender, and nondistended. Bowel sounds are present. EXTREMITIES: No lower extremity edema. RECTAL: Exam reveals black stool in the rectal vault. LABORATORY DATA: White blood cell count 21.6; hemoglobin baseline was 9.6; today, it is 7.8; and platelets 266. Creatinine 0.78, bilirubin 0.3, AST 19, ALT 11, alkaline phosphatase 108, and albumin 3.5. IMPRESSION: 1. Gastrointestinal bleed, presenting with hematemesis and melena. Has a history of prior gastrointestinal bleed and peptic ulcer with pyloric stenosis. He has been on aspirin and Plavix and has had prior coronary and peripheral stents. He has remained on pantoprazole 40 mg daily as an outpatient. He has black stool in his rectal vault now. Given this history, we would ideally perform EGD; however, with the huge mass in his neck, he would be extremely high risk for anesthesia at this point. 2. Anemia of acute blood loss. 3. Large lymphoma mass in his left neck. He has received 2 rounds of chemotherapy and has responded poorly so far. Oncology is going to evaluate him today as well. 4. Coronary artery disease and peripheral vascular disease, on aspirin and Plavix. 5. Dysphagia. He is starting to have pain in his jaw related to the mass with eating. He is eating very little solid food, but has been able to still get down liquid supplements. I suspect that the dysphagia may likely progress and if treatment is planned to continue, then he might ultimately require gastrostomy. This might or might not be appropriate for him based on his prognosis and plan of treatment. RECOMMENDATIONS: 1. Hold aspirin and Plavix. 2. Proton pump inhibitor drip. 3. I have had him evaluated by Anesthesiology and certainly the mass in his neck makes him to extremely high risk for intubation. He likely may require continued mechanical ventilation and ultimately tracheostomy if he did have to be intubated. While he does have some black stool in the rectal vault, he has not had further red hematemesis. We will hold his platelets and continue proton pump inhibitor and try to avoid endoscopy for now and transfuse as needed and plan endoscopy if he shows more signs of larger volume overt bleeding. In the meantime, we will ask Oncology and ENT to evaluate him. We will keep him n.p.o. for now. Job ID: [id number]
[2020-03-16] MEDS: cefTRIAXone\\ROCEPHIN 1 GM in Sodium Chloride 0.9% 100 ML IVPB SCH (20:13)
[2020-03-16 22:36] LABS: Hemoglobin 7.8 g/dL (14.0-18.0)
[2020-03-17] MEDS: HYDROcodone/Acetaminophen 5/325 mg Tablet PO PRN ×5 (00:43→22:51)
[2020-03-17] MEDS: Pantoprazole 80 MG in Sodium Chloride 0.9% 100 ML IVPB SCH ×2 (00:45→10:13)
[2020-03-17] MEDS: Sodium Chloride 0.9% 1,000 ML IV SCH (00:52)
[2020-03-17 08:09] LABS: #Eosinphils 0.1 thou/uL (0.0-0.7); #Lymphocytes 2.4 thou/uL (1.20-3.40); #Monocytes 0.6 thou/uL (0.11-0.59); %Basophils 0.4 % (0.0-1.0); %Eosinophils 0.7 % (0.0-10.0); %Monocytes 6.3 % (0.0-10.0); %Neutrophils 68.5 % (42.0-75.0); Hemoglobin 7.6 g/dL (14.0-18.0); Mean Corpuscular HGB CONC 33.3 g/dL (32.0-36.0); Mean Corpuscular Volume 87.2 fL (78.0-98.0); Mean Platelet Volume 7.2 fL (7.4-10.4); Platelet Count 296 thou/uL (130-400); RBC Distribution Width 15.7 % (11.5-14.5); Red Blood Cell (RBC) Count 2.62 mill/uL (4.70-6.10); White Blood Cell (WBC) Count 10.2 thou/uL (4.8-10.8)
[2020-03-17 08:23] LABS: Anion Gap 14 mmol/L (10-20); BUN (Urea Nitrogen) 18 mg/dL (8.4-25.7); Calc. Creatinine Clearance 68 mL/min (70-130); Calcium 8.4 mg/dL (7.8-10.44); Carbon Dioxide 21 mmol/L (23-31); Chloride 104 mmol/L (98-107); Glucose 69 mg/dL (83-110); Potassium 3.9 mmol/L (3.5-5.1); Sodium 135 mmol/L (136-145)
--- NOTE | 2020-03-17 14:38 | PRG ---
DATE OF SERVICE: 03/17/2020 SUBJECTIVE: Mr. Cornejo has had no further bowel movements since yesterday. No abdominal pain or nausea or vomiting. OBJECTIVE: VITAL SIGNS: Temperature 98.0, pulse 88, blood pressure 132/65. GENERAL: He is in no acute distress. Alert and oriented x3. NECK: Large mass in his left neck. LUNGS: Clear to auscultation bilaterally. HEART: Regular rate and rhythm without murmur. ABDOMEN: Soft, nontender, and nondistended. Bowel sounds are present. EXTREMITIES: No lower extremity edema. LABORATORY DATA: Hemoglobin is 7.6. IMPRESSION: 1. Gastrointestinal bleed, presenting with hematemesis and melena. This is clinically resolved for now with proton pump inhibitor and cessation of aspirin and Plavix. He is not a candidate for anesthesia. He can change from the pantoprazole drip to b.i.d. dosing. 2. Lymphoma of the left neck. RECOMMENDATIONS: 1. Continue proton pump inhibitor. 2. We will advance to full liquid diet. He states that his jaw hurts with more solid foods. 3. He is planning to start a new chemotherapy regimen tomorrow. 4. I will sign off. Please call if GI can be of assistance. Job ID: [id number]
--- NOTE | 2020-03-17 17:32 | CON ---
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 HISTORY OF PRESENT ILLNESS: The patient is a 70-year-old man with a history of CLL diagnosed in October 2015, which initially responded to ibrutinib, which was initiated in 2018. 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 He received a single cycle of R-CHOP Rituxan with an inadequate response. About 3 weeks ago, he received his first cycle of EPOCH-R, which he tolerated well. On the day of admission, he vomited blood, noted melena, and he was admitted for further evaluation. He has been on pantoprazole daily and has been taking it faithfully. He did have an upper endoscopy in 2017 with dilation of pyloric stenosis. A few ulcerations were identified within the pylorus at that time. He has had no recent prior history of gastrointestinal bleed. Review of the laboratories does show that the hemoglobin has fallen from over 9 to 7.8. I am asked to see the patient to provide further management recommendations for this patient. PAST MEDICAL HISTORY: ALLERGIES: NONE. MEDICATIONS: 1. Aspirin. 2. Plavix. 3. Pantoprazole. 4. Losartan. 5. Atorvastatin. 6. Amlodipine. 7. Allopurinol. MEDICAL ILLNESS: He has a history of hypertension and atherosclerotic heart disease, for which he underwent stenting in the past 6 to 12 months. There is a history of hyperlipidemia. PAST SURGICAL HISTORY: He has undergone medical port placement and cardiac stent placement. He underwent some type of bladder surgery in 2009. FAMILY HISTORY: Negative for lymphoma or gastrointestinal malignancies. SOCIAL HISTORY: He does not use alcohol or tobacco. REVIEW OF SYSTEMS: He does have pain in the left jaw and left side of the neck related to the large left neck mass. He has no shortness of breath. He has no new symptoms of orthostasis or dizziness. Otherwise, he denies significant cardiopulmonary, GI, , musculoskeletal, or neurological complaints. PHYSICAL EXAMINATION: VITAL SIGNS: Temperature 98.3, pulse 98, respirations 16, blood pressure 125/65. GENERAL: The patient is a well-developed, well-nourished man in no acute distress. He is lying nearly flat at about 30 degrees and comfortable. There is an obvious huge left neck mass present from the foot of the bed. HEENT: The extraocular movements are intact. The pupils are equal, round, and reactive to light. NECK: Shows a massive tumor involving the left supraclavicular and left cervical region. There is mild nodularity. LUNGS: Clear. CARDIOVASCULAR: Regular rate and rhythm without murmur, gallop, or click. ABDOMEN: No tenderness, organomegaly, masses, bruits, or ascites. EXTREMITIES: No clubbing, cyanosis, or edema. LYMPH: No adenopathy. MUSCULOSKELETAL: No active arthritis. NEUROLOGIC: No focal findings. LABORATORY DATA: White blood cell count 21.6 with 74% neutrophils and 14% bands. Hemoglobin was 9.4 on admission and decreased to 7.8 six hours later. The platelet count is 266,000. Chemistries show essentially normal electrolytes except for carbon dioxide of 19 and a random blood sugar of 164. Liver function is normal. A CT scan of the chest/abdomen/pelvis shows no acute findings in the abdomen. A CT scan of the soft tissue of the neck shows a left neck mass with probable occlusion or severe compression of the left internal jugular vein. There are enlarged left axillary lymph nodes as well. IMPRESSION: 1. 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 2. Upper gastrointestinal bleed. RECOMMENDATIONS: I discussed the case with Dr. Diaz and Dr. Atkinson. He is hemodynamically stable and has not required transfusion at this time. I would recommend stopping the anti-platelet agents and observing. There is significant concern regarding upper gastrointestinal endoscopy and airway compromise. Anesthesia is concerned about possible respiratory complications and the need for a tracheostomy, which would be quite difficult. Therefore, I do think it is reasonable to remain conservative and monitor him for now without anti-platelet agents. Thanks very much for allowing me to provide my recommendations. Job ID: [id number] [id number]
[2020-03-17] MEDS: cefTRIAXone\\ROCEPHIN 1 GM in Sodium Chloride 0.9% 100 ML IVPB SCH (20:30)
[2020-03-17] MEDS: Pantoprazole 40 MG VIAL IVP SCH (20:30)
[2020-03-18] MEDS: HYDROcodone/Acetaminophen 5/325 mg Tablet PO PRN ×4 (03:23→20:33)
--- NOTE | 2020-03-18 07:15 | PDOC.HOSPP ---
- Subjective Encounter Date: 03/17/20 Encounter Time: 10:00 Subjective: pt up in bed no complains - Objective Vital Signs & Weight: Vital Signs (12 hours) Temp Pulse Resp BP BP Pulse Ox 03/18/20 03:18 98.4 F 106 H 18 167/74 H 100 03/18/20 00:00 92 03/17/20 19:34 97.8 F 94 18 138/71 99 Weight Admit Weight 123 lb 0.91 oz Weight 132 lb 0.91 oz I&O: 03/17/20 03/18/20 03/19/20 06:59 06:59 06:59 Intake Total 1020 840 Output Total 975 975 Balance 45 -135 Result Diagrams: 03/18/20 10:53 03/17/20 07:53 Hospitalist ROS - Review of Systems Cardiovascular: denies: chest pain, palpitations, orthopnea, paroxysmal noc. dyspnea, edema, light headedness, other Gastrointestinal: denies: nausea, vomiting, abdominal pain, diarrhea, constipation, melena, hematochezia, other Genitourinary: denies: dysuria, frequency, incontinence, hematuria, retention, other - Medication Medications: Active Medications Generic Name Dose Route Start Last Admin Trade Name Freq PRN Reason Stop Dose Admin Acetaminophen 650 mg 03/15/20 23:35 03/16/20 11:10 Acetaminophen 325 Mg Tab PO 650 mg Q4H PRN Administration Headache/Fever/Mild Pain (1-3) Hydrocodone Bitart/Acetaminophen 1 tab 03/15/20 23:35 03/18/20 03:23 Hydrocodone/Acetaminophen 5/325 Mg Tablet PO 1 tab Q4H PRN Administration Moderate Pain (4-6) Ceftriaxone Sodium 1 gm/ 100 mls @ 200 mls/hr 03/16/20 21:00 03/17/20 20:30 Sodium Chloride IVPB 100 mls 2100 BERNA Administration Pantoprazole Sodium 40 mg 03/17/20 21:00 03/17/20 20:30 Pantoprazole 40 Mg Vial IVP 40 mg Q12HR BERNA Administration Sodium Chloride 10 ml 03/15/20 23:35 03/17/20 20:31 Flush - Normal Saline 10 Ml Syringe IVF 10 ml PRN PRN Administration Saline Flush - Exam Heart: negative: RRR, no murmur, no gallops, no rubs, normal peripheral pulses, irregular, diminshed peripheral pulses, murmur present, II/IV, III/IV Respiratory: negative: CTAB, no wheezes, no rales, no ronchi, normal chest expansion, no tachypnea, normal percussion, rales, rhonchi, tachypneic, wheezes Gastrointestinal: negative: soft, non-tender, non-distended, normal bowel sounds, no palpable masses, no hepatomegaly, no splenomegaly, no bruit, no guarding, no rigidity, tender to palpation, distended, diminished bowl sounds, voluntary guarding Extremities: negative: no cyanosis, no clubbing, no edema, 1+ LE edema, 2+ LE edema, clubbing Hosp A/P (1) GI bleed Code(s): K92.2 - GASTROINTESTINAL HEMORRHAGE, UNSPECIFIED Status: Acute (2) CAD (coronary artery disease) Code(s): I25.10 - ATHSCL HEART DISEASE OF [place] CORONARY ARTERY W/O ANG PCTRS Status: Chronic (3) HTN (hypertension) Code(s): I10 - ESSENTIAL (PRIMARY) HYPERTENSION Status: Chronic (4) Mass of left side of neck Code(s): R22.1 - LOCALIZED SWELLING, MASS AND LUMP, NECK Status: Chronic (5) Peripheral vascular disease Code(s): I73.9 - PERIPHERAL VASCULAR DISEASE, UNSPECIFIED Status: Chronic - Plan Patient's H&H continues to be stable. He is not candidate for EGD given his large left-sided tumor. Patient is supposed to be on aspirin and Plavix given his lower extremity strengths and cardiac stent.
[2020-03-18] MEDS: Pantoprazole 40 MG VIAL IVP SCH ×2 (08:23→20:34)
[2020-03-18] MEDS ORDERED: Non-Formulary Item 1 EACH (Losartan Potassium [Losartan Potassium] 100 MG Tablet) PO SCH (09:00)
[2020-03-18] MEDS: Allopurinol 100 MG TAB PO SCH (09:49)
[2020-03-18] MEDS: Amlodipine 10 MG TAB PO SCH (09:49)
[2020-03-18] MEDS: Losartan 25 MG TAB PO SCH (09:49)
[2020-03-18 11:15] LABS: #Basophils 0.1 thou/uL (0.0-0.2); #Eosinphils 0.1 thou/uL (0.0-0.7); #Lymphocytes 3.1 thou/uL (1.20-3.40); #Monocytes 0.9 thou/uL (0.11-0.59); #Neutrophils 6.6 thou/uL (1.40-6.50); %Basophils 0.8 % (0.0-1.0); %Eosinophils 0.6 % (0.0-10.0); %Lymphocytes 28.9 % (21.0-51.0); %Neutrophils 61.7 % (42.0-75.0); Hemoglobin 8.3 g/dL (14.0-18.0); Mean Corpuscular HGB CONC 31.9 g/dL (32.0-36.0); Mean Corpuscular Hemoglobin 27.9 pg (27.0-31.0); Mean Corpuscular Volume 87.5 fL (78.0-98.0); Mean Platelet Volume 7.2 fL (7.4-10.4); Platelet Count 364 thou/uL (130-400); RBC Distribution Width 15.8 % (11.5-14.5); Red Blood Cell (RBC) Count 2.97 mill/uL (4.70-6.10); White Blood Cell (WBC) Count 10.8 thou/uL (4.8-10.8)
--- NOTE | 2020-03-18 14:47 | PDOC.MOPN ---
Interval History: denies any bleeding today, feels ok. no CP, SOB, dysphagia - Vital Signs Vital Signs: Vital Signs (12 hours) Temp Pulse Resp BP BP BP Pulse Ox 03/18/20 11:34 97.5 F L 96 12 139/67 99 03/18/20 09:49 94 161/77 H 03/18/20 08:16 98.3 F 110 H 12 154/74 H 100 03/18/20 03:18 98.4 F 106 H 18 167/74 H 100 Weight Admit Weight 123 lb 0.91 oz Weight 132 lb 0.91 oz - Physical Exam General: Alert, Oriented x3, No acute distress HEENT: Other (left neck mass) Lungs: Clear to auscultation Cardiovascular: Regular rate Abdomen: Normal bowel sounds Neurological: Normal speech Psych/Mental Status: Mental status NL - Labs Result Diagrams: 03/18/20 10:53 03/17/20 07:53 Lab results: Laboratory Results - last 24 hr 03/18/20 10:53: WBC 10.8, RBC 2.97 L, Hgb 8.3 L, Hct 26.0 L, MCV 87.5, MCH 27.9, MCHC 31.9 L, RDW 15.8 H, Plt Count 364, MPV 7.2 L, Neutrophils % 61.7, Lymphocytes % 28.9, Monocytes % 8.0, Eosinophils % 0.6, Basophils % 0.8, Neutrophils # 6.6 H, Lymphocytes # 3.1, Monocytes # 0.9 H, Eosinophils # 0.1, Basophils # 0.1 Status: lab reviewed by me A/P - Problem (1) GI bleed Current Visit: No Code(s): K92.2 - GASTROINTESTINAL HEMORRHAGE, UNSPECIFIED Status: Acute (2) Large cell (diffuse) non-Hodgkin's lymphoma Current Visit: No Code(s): C83.30 - DIFFUSE LARGE B-CELL LYMPHOMA, UNSPECIFIED SITE Status: Acute - Plan Plan: 1. not a candidate for anesthesia at this time 2. bleeding appears to have stopped 3. Plan cycle 2 of EPOCH-R, start tomorrow 4. transfer to onc floor 5. discussed with Dr. Allen and Lidia.
--- NOTE | 2020-03-18 14:47 | PDOC.HOSPP ---
- Subjective Encounter Date: 03/18/20 Encounter Time: 10:30 Subjective: pt up in bed no complains - Objective Vital Signs & Weight: Vital Signs (12 hours) Temp Pulse Resp BP BP BP Pulse Ox 03/18/20 11:34 97.5 F L 96 12 139/67 99 03/18/20 09:49 94 161/77 H 03/18/20 08:16 98.3 F 110 H 12 154/74 H 100 03/18/20 03:18 98.4 F 106 H 18 167/74 H 100 Weight Admit Weight 123 lb 0.91 oz Weight 132 lb 0.91 oz I&O: 03/17/20 03/18/20 03/19/20 06:59 06:59 06:59 Intake Total 1020 840 Output Total 975 975 Balance 45 -135 Result Diagrams: 03/18/20 10:53 03/17/20 07:53 Hospitalist ROS - Review of Systems Cardiovascular: denies: chest pain, palpitations, orthopnea, paroxysmal noc. dyspnea, edema, light headedness, other Gastrointestinal: denies: nausea, vomiting, abdominal pain, diarrhea, constipation, melena, hematochezia, other Genitourinary: denies: dysuria, frequency, incontinence, hematuria, retention, other - Medication Medications: Active Medications Generic Name Dose Route Start Last Admin Trade Name Freq PRN Reason Stop Dose Admin Acetaminophen 650 mg 03/15/20 23:35 03/16/20 11:10 Acetaminophen 325 Mg Tab PO 650 mg Q4H PRN Administration Headache/Fever/Mild Pain (1-3) Hydrocodone Bitart/Acetaminophen 1 tab 03/15/20 23:35 03/18/20 12:51 Hydrocodone/Acetaminophen 5/325 Mg Tablet PO 1 tab Q4H PRN Administration Moderate Pain (4-6) Allopurinol 100 mg 03/18/20 09:00 03/18/20 09:49 Allopurinol 100 Mg Tab PO 100 mg DAILY BERNA Administration Amlodipine Besylate 10 mg 03/18/20 09:00 03/18/20 09:49 Amlodipine 10 Mg Tab PO 10 mg DAILY BERNA Administration Losartan Potassium 50 mg 03/18/20 09:00 03/18/20 09:49 Losartan 25 Mg Tab PO 50 mg DAILY BERNA Administration Pantoprazole Sodium 40 mg 03/17/20 21:00 03/18/20 08:23 Pantoprazole 40 Mg Vial IVP 40 mg Q12HR BERNA Administration Sodium Chloride 10 ml 03/15/20 23:35 03/17/20 20:31 Flush - Normal Saline 10 Ml Syringe IVF 10 ml PRN PRN Administration Saline Flush - Exam Heart: negative: RRR, no murmur, no gallops, no rubs, normal peripheral pulses, irregular, diminshed peripheral pulses, murmur present, II/IV, III/IV Respiratory: negative: CTAB, no wheezes, no rales, no ronchi, normal chest expansion, no tachypnea, normal percussion, rales, rhonchi, tachypneic, wheezes Gastrointestinal: negative: soft, non-tender, non-distended, normal bowel sounds, no palpable masses, no hepatomegaly, no splenomegaly, no bruit, no guarding, no rigidity, tender to palpation, distended, diminished bowl sounds, voluntary guarding Extremities: negative: no cyanosis, no clubbing, no edema, 1+ LE edema, 2+ LE edema, clubbing Hosp A/P (1) GI bleed Code(s): K92.2 - GASTROINTESTINAL HEMORRHAGE, UNSPECIFIED Status: Acute (2) Large cell (diffuse) non-Hodgkin's lymphoma Code(s): C83.30 - DIFFUSE LARGE B-CELL LYMPHOMA, UNSPECIFIED SITE Status: Acute (3) CAD (coronary artery disease) Code(s): I25.10 - ATHSCL HEART DISEASE OF [place] CORONARY ARTERY W/O ANG PCTRS Status: Chronic (4) HTN (hypertension) Code(s): I10 - ESSENTIAL (PRIMARY) HYPERTENSION Status: Chronic (5) Mass of left side of neck Code(s): R22.1 - LOCALIZED SWELLING, MASS AND LUMP, NECK Status: Chronic (6) Peripheral vascular disease Code(s): I73.9 - PERIPHERAL VASCULAR DISEASE, UNSPECIFIED Status: Chronic - Plan Patient's H&H continues to be stable. He is not candidate for EGD given his large left-sided tumor. Patient is supposed to be on aspirin and Plavix given his lower extremity strengths and cardiac stent. 03/18 patient had a drug-eluting stent to his mid LAD on October 2019. Currently he is off aspirin and Plavix. Per recommendation he has to be on dual antiplatelet therapy at least for 6 months. However I spoke with cardiology who stated that he at least needs to be on aspirin which I will talk with GI and resume. We will transfer the patient to oncology for chemotherapy. H&H remain stable
--- NOTE | 2020-03-18 16:02 | PQF ---
CLINICAL DOCUMENTATION CLARIFICATION FORM: Dear Dr. Yecenia SCHOFIELD Date: 03/18/2020 Please exercise your independent, professional judgment in responding to the clarification form. Clinical indicators are provided on the bottom of this form for your review. Please check appropriate box(es): [ ] Protein Calorie Malnutrition: [ ] Mild [ x] Moderate [ ] Severe [ ] Other Malnutrition (please specify) [ ] Underweight without malnutrition [ ] Cachexia [ ] Other diagnosis [ ] Unable to determine In addition, please specify: Present on Admission (POA): [ x ] Yes [ ] No [ ] Unable to determine For continuity of documentation, please document condition throughout progress notes and discharge summary. Thank You. To be completed by CDI/Coding staff for physician review: CLINICAL INDICATORS - SIGNS / SYMPTOMS / LABS / RESULTS AND LOCATION IN MR BMI 18.9 Nutrition Diagnosis Malnutrition Related to lymphoma as Evidenced by 11.9% weight loss in 3 months with moderate muscle wasting suggestive of moderate to severe malnutrition in the context of chronic illness ( / 03/16) Vomiting with epigastric pain, presented with episodes of hematemesis ( Antonio-Evan/H&P) 03/15 RISK FACTORS / RESULTS AND LOCATION IN MR Acute blood loss Anemia, Dysphagia, GI bleed, Lymphoma (Antonio-Evan/H&P) 03/15 TREATMENT / RESULTS AND LOCATION IN MR Dietary consult (03/16) Recommend Ensure Enlive TID Moderate Malnutrition (in acute illness) Energy Intake: <75% of estimated energy requirement for > 7 days Weight Loss: 1-2%/1 week; 5%/ 1 month; 7.5%/3 months Other: mild body fat loss; mild muscle mass loss; mild fluid accumulation; Severe Malnutrition (in acute illness) Energy Intake: = 50% of estimated energy requirement for = 5 days Weight Loss: >2%/1 week; >5%/1 month; >7.5%/3 months Other: moderate body fat loss; moderate muscle mass loss; moderate- severe fluid accumulation; 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 CDS Signature: Yuko Swanson RN Phone #:[phone] Date: 03/18/2020 This is a permanent part of the Medical Record [facility]
[2020-03-18] MEDS ORDERED: PEGFILGRASTIM-JMDB 6 MG/0.6 ML SYRINGE SQ SCH (17:30)
[2020-03-18] MEDS: Atorvastatin Calcium 20 MG TAB PO SCH (20:33)
[2020-03-19] MEDS: HYDROcodone/Acetaminophen 5/325 mg Tablet PO PRN ×2 (00:18→09:17)
[2020-03-19 05:19] LABS: #Basophils 0.1 thou/uL (0.0-0.2); #Eosinphils 0.1 thou/uL (0.0-0.7); #Lymphocytes 2.8 thou/uL (1.20-3.40); #Monocytes 1.2 thou/uL (0.11-0.59); #Neutrophils 8.9 thou/uL (1.40-6.50); %Basophils 0.7 % (0.0-1.0); %Eosinophils 0.6 % (0.0-10.0); %Lymphocytes 21.1 % (21.0-51.0); %Monocytes 9.2 % (0.0-10.0); %Neutrophils 68.4 % (42.0-75.0); Hemoglobin 7.8 g/dL (14.0-18.0); Mean Corpuscular HGB CONC 32.5 g/dL (32.0-36.0); Mean Corpuscular Hemoglobin 28.4 pg (27.0-31.0); Mean Corpuscular Volume 87.2 fL (78.0-98.0); Mean Platelet Volume 7.1 fL (7.4-10.4); Platelet Count 378 thou/uL (130-400); RBC Distribution Width 15.8 % (11.5-14.5); Red Blood Cell (RBC) Count 2.75 mill/uL (4.70-6.10); White Blood Cell (WBC) Count 13.1 thou/uL (4.8-10.8)
[2020-03-19 05:42] LABS: ALT (SGPT) 7 U/L (8-55); AST (SGOT) 13 U/L (5-34); Albumin 3.4 g/dL (3.4-4.8); Alkaline Phosphatase 84 U/L (40-110); Anion Gap 17 mmol/L (10-20); BUN (Urea Nitrogen) 13 mg/dL (8.4-25.7); Bilirubin, Total 0.4 mg/dL (0.2-1.2); Calc. Creatinine Clearance 64 mL/min (70-130); Calcium 8.8 mg/dL (7.8-10.44); Carbon Dioxide 20 mmol/L (23-31); Chloride 101 mmol/L (98-107); Globulin 2.6 g/dL (2.4-3.5); Glucose 120 mg/dL (83-110); Potassium 3.4 mmol/L (3.5-5.1); Sodium 135 mmol/L (136-145); Uric Acid 5.5 mg/dL (3.5-7.2)
[2020-03-19] MEDS ORDERED: RITUXIMAB ABBS IVPB SCH (06:45)
[2020-03-19] MEDS ORDERED: Famotidine/PF 20 mg/2ml Vial SLOW IVP SCH (06:45)
[2020-03-19] MEDS ORDERED: SODIUM CHLORIDE 0.9% IVPB SCH ×3 (06:45→07:00)
[2020-03-19] MEDS ORDERED: diphenhydrAMINE 50 MG in Sodium Chloride 0.9% 100 ML IVPB SCH (07:00)
[2020-03-19] MEDS ORDERED: Famotidine/PF 20 MG in Sodium Chloride 0.9% 50 ML IVPB SCH (07:00)
[2020-03-19] MEDS ORDERED: DOXORUBICIN IVPB SCH (07:00)
[2020-03-19] MEDS ORDERED: Dexamethasone Sod Phosphate 20 MG in Sodium Chloride 0.9% 50 ML IVPB SCH (07:00)
[2020-03-19] MEDS ORDERED: RITUXAN IVPB SCH (07:00)
[2020-03-19] MEDS ORDERED: predniSONE 50 MG TAB PO SCH (08:00)
[2020-03-19] MEDS: Losartan 25 MG TAB PO SCH (09:18)
[2020-03-19] MEDS: Amlodipine 10 MG TAB PO SCH (09:18)
[2020-03-19] MEDS: Allopurinol 100 MG TAB PO SCH (09:19)
[2020-03-19] MEDS: Pantoprazole 40 MG VIAL IVP SCH ×2 (09:21→21:56)
[2020-03-19] MEDS ORDERED: Aspirin 81 mg Enteric Coated Tablet PO SCH (10:45)
[2020-03-19] MEDS: Acetaminophen 325 MG TAB PO PRN (11:45)
[2020-03-19] MEDS: Lorazepam 2 MG/ML VIAL SLOW IVP PRN ×2 (13:16→22:39)
--- NOTE | 2020-03-19 14:23 | PDOC.MOPN ---
Interval History: per nurse, periods of agitation this am. Dozing now. - Vital Signs Vital Signs: Vital Signs (12 hours) Temp Pulse Resp BP BP BP Pulse Ox 03/19/20 14:18 109 H 18 151/68 H 03/19/20 13:44 115 H 16 125/66 94 L 03/19/20 12:48 126 H 136/65 03/19/20 12:18 98 18 121/62 03/19/20 12:00 98.9 F 99 18 115/53 L 99 03/19/20 09:18 108 H 132/60 03/19/20 08:00 99 03/19/20 07:46 97.8 F 108 H 16 132/60 99 Weight Admit Weight 123 lb 0.91 oz Weight 132 lb 0.91 oz - Physical Exam General: No acute distress HEENT: Other (left neck mass) Lungs: Clear to auscultation Cardiovascular: Regular rate Abdomen: Normal bowel sounds Neurological: Normal speech Psych/Mental Status: Mental status NL - Labs Result Diagrams: 03/19/20 05:00 03/19/20 05:00 Lab results: Laboratory Results - last 24 hr 03/19/20 05:00: WBC 13.1 H, RBC 2.75 L, Hgb 7.8 L, Hct 24.0 L, MCV 87.2, MCH 28.4, MCHC 32.5, RDW 15.8 H, Plt Count 378, MPV 7.1 L, Neutrophils % 68.4, L ymphocytes % 21.1, Monocytes % 9.2, Eosinophils % 0.6, Basophils % 0.7, Neutrophils # 8.9 H, Lymphocytes # 2.8, Monocytes # 1.2 H, Eosinophils # 0.1, Basophils # 0.1 03/19/20 05:00: Lactate Dehydrogenase 938 H 03/19/20 05:00: Sodium 135 L, Potassium 3.4 L, Chloride 101, Carbon Dioxide 20 L, Anion Gap 17, BUN 13, Creatinine 0.89, Estimated GFR (MDRD) Greater than 90, Glucose 120 H, Uric Acid 5.5, Calcium 8.8, Total Bilirubin 0.4, AST 13, ALT 7 L, Alkaline Phosphatase 84, Serum Total Protein 6.0, Albumin 3.4, Globulin 2.6, Albumin/Globulin Ratio 1.3 Status: lab reviewed by me A/P - Problem (1) GI bleed Current Visit: No Code(s): K92.2 - GASTROINTESTINAL HEMORRHAGE, UNSPECIFIED Status: Acute (2) Large cell (diffuse) non-Hodgkin's lymphoma Current Visit: No Code(s): C83.30 - DIFFUSE LARGE B-CELL LYMPHOMA, UNSPECIFIED SITE Status: Acute - Plan Plan: 1. C2D1 EPOCH-R, tolerating well 2. Continue antiemetic prn 3. ativan prn agitation 4. discussed with Dr. Murillo.
[2020-03-19] MEDS: SODIUM CHLORIDE 0.9% IVPB SCH ×2 (15:58→17:33)
[2020-03-19] MEDS: ETOPOSIDE IVPB SCH (15:58)
--- NOTE | 2020-03-19 16:37 | PDOC.HOSPP ---
- Subjective Encounter Date: 03/19/20 Encounter Time: 11:20 Subjective: Patient up in bed no complaints. - Objective Vital Signs & Weight: Vital Signs (12 hours) Temp Pulse Resp BP BP BP Pulse Ox 03/19/20 14:48 111 H 16 120/60 03/19/20 14:18 109 H 18 151/68 H 03/19/20 13:44 115 H 16 125/66 94 L 03/19/20 12:48 126 H 136/65 03/19/20 12:18 98 18 121/62 03/19/20 12:00 98.9 F 99 18 115/53 L 99 03/19/20 09:18 108 H 132/60 03/19/20 08:00 99 03/19/20 07:46 97.8 F 108 H 16 132/60 99 Weight Admit Weight 123 lb 0.91 oz Weight 132 lb 0.91 oz I&O: 03/18/20 03/19/20 03/20/20 06:59 06:59 06:59 Intake Total 840 430 Output Total 975 250 Balance -135 180 Result Diagrams: 03/19/20 05:00 03/19/20 05:00 Hospitalist ROS - Review of Systems Cardiovascular: denies: chest pain, palpitations, orthopnea, paroxysmal noc. dyspnea, edema, light headedness, other Gastrointestinal: denies: nausea, vomiting, abdominal pain, diarrhea, constipation, melena, hematochezia, other Genitourinary: denies: dysuria, frequency, incontinence, hematuria, retention, other - Medication Medications: Active Medications Generic Name Dose Route Start Last Admin Trade Name Wilfridq PRN Reason Stop Dose Admin Acetaminophen 650 mg 03/15/20 23:35 03/19/20 11:45 Acetaminophen 325 Mg Tab PO 650 mg Q4H PRN Administration Headache/Fever/Mild Pain (1-3) Hydrocodone Bitart/Acetaminophen 1 tab 03/15/20 23:35 03/19/20 09:17 Hydrocodone/Acetaminophen 5/325 Mg Tablet PO 1 tab Q4H PRN Administration Moderate Pain (4-6) Allopurinol 100 mg 03/18/20 09:00 03/19/20 09:19 Allopurinol 100 Mg Tab PO 100 mg DAILY BERNA Administration Amlodipine Besylate 10 mg 03/18/20 09:00 03/19/20 09:18 Amlodipine 10 Mg Tab PO 10 mg DAILY BERNA Administration Atorvastatin Calcium 20 mg 03/18/20 21:00 03/18/20 20:33 Atorvastatin Calcium 20 Mg Tab PO 20 mg HS BERNA Administration Famotidine 20 mg 03/19/20 06:45 03/19/20 11:46 Famotidine/Pf 20 Mg/2ml Vial SLOW IVP 03/19/20 23:00 20 mg WILLCALL BERNA Administration Diphenhydramine HCl 50 mg/ 101 mls @ 303 mls/hr 03/19/20 07:00 03/19/20 11:38 Sodium Chloride IVPB 03/19/20 23:00 101 mls WILLCALL BERNA Administration Dexamethasone Sodium Phosphate 52 mls @ 156 mls/hr 03/19/20 07:00 03/19/20 15:33 20 mg/ Sodium Chloride IVPB 03/19/20 23:00 52 mls WILLCALL BERNA Administration Etoposide 88 mg/ Sodium 504.4 mls @ 504.4 mls/hr 03/19/20 07:00 03/19/20 15:58 Chloride IVPB 03/22/20 23:00 504.4 mls WILLCALL BERNA Administration Rituximab-abbs 500 mg/ 560 mls @ 0 mls/hr 03/19/20 06:45 03/19/20 12:18 Rituximab-abbs 100 mg/ Sodium IVPB 03/19/20 23:00 560 mls Chloride WILLCALL BERNA Administration As Directed Lorazepam 1 mg 03/19/20 07:50 03/19/20 13:16 Lorazepam 2 Mg/Ml Vial SLOW IVP 1 mg Q6H PRN Administration AGITATION/RESTLESSNESS Losartan Potassium 50 mg 03/18/20 09:00 03/19/20 09:18 Losartan 25 Mg Tab PO 50 mg DAILY BERNA Administration Pantoprazole Sodium 40 mg 03/17/20 21:00 03/19/20 09:21 Pantoprazole 40 Mg Vial IVP 40 mg Q12HR BERNA Administration Sodium Chloride 10 ml 03/15/20 23:35 03/17/20 20:31 Flush - Normal Saline 10 Ml Syringe IVF 10 ml PRN PRN Administration Saline Flush - Exam Neck: negative: supple, symmetric, no JVD, no thyromegaly, no lymphadenopathy, no carotid bruit, JVD Heart: negative: RRR, no murmur, no gallops, no rubs, normal peripheral pulses, irregular, diminshed peripheral pulses, murmur present, II/IV, III/IV Respiratory: negative: CTAB, no wheezes, no rales, no ronchi, normal chest expansion, no tachypnea, normal percussion, rales, rhonchi, tachypneic, wheezes Gastrointestinal: negative: soft, non-tender, non-distended, normal bowel sounds, no palpable masses, no hepatomegaly, no splenomegaly, no bruit, no guarding, no rigidity, tender to palpation, distended, diminished bowl sounds, voluntary guarding Hosp A/P (1) GI bleed Code(s): K92.2 - GASTROINTESTINAL HEMORRHAGE, UNSPECIFIED Status: Acute (2) Large cell (diffuse) non-Hodgkin's lymphoma Code(s): C83.30 - DIFFUSE LARGE B-CELL LYMPHOMA, UNSPECIFIED SITE Status: Acute (3) CAD (coronary artery disease) Code(s): I25.10 - ATHSCL HEART DISEASE OF [place] CORONARY ARTERY W/O ANG PCTRS Status: Chronic (4) HTN (hypertension) Code(s): I10 - ESSENTIAL (PRIMARY) HYPERTENSION Status: Chronic (5) Mass of left side of neck Code(s): R22.1 - LOCALIZED SWELLING, MASS AND LUMP, NECK Status: Chronic (6) Peripheral vascular disease Code(s): I73.9 - PERIPHERAL VASCULAR DISEASE, UNSPECIFIED Status: Chronic - Plan Patient's H&H continues to be stable. He is not candidate for EGD given his large left-sided tumor. Patient is supposed to be on aspirin and Plavix given his lower extremity strengths and cardiac stent. 03/18 patient had a drug-eluting stent to his mid LAD on October 2019. Currently he is off aspirin and Plavix. Per recommendation he has to be on dual antiplatelet therapy at least for 6 months. However I spoke with cardiology who stated that he at least needs to be on aspirin which I will talk with GI and resume. We will transfer the patient to oncology for chemotherapy. H&H remain stable. 03/19 we will start patient on aspirin given her recent stent. We will advance patient's diet. We will continue to monitor patient. He is getting chemotherapy.
[2020-03-19] MEDS: DOXORUBICIN IVPB SCH (17:33)
[2020-03-19] MEDS: Atorvastatin Calcium 20 MG TAB PO SCH ×2 (22:00→23:20)
[2020-03-20 07:59] LABS: #Lymphocytes 1.1 thou/uL (1.20-3.40); #Monocytes 0.5 thou/uL (0.11-0.59); #Neutrophils 6.7 thou/uL (1.40-6.50); %Basophils 0.1 % (0.0-1.0); %Eosinophils 0.2 % (0.0-10.0); %Lymphocytes 13.2 % (21.0-51.0); %Monocytes 5.7 % (0.0-10.0); %Neutrophils 80.8 % (42.0-75.0); Hemoglobin 8.3 g/dL (14.0-18.0); Mean Corpuscular HGB CONC 32.7 g/dL (32.0-36.0); Mean Corpuscular Hemoglobin 28.8 pg (27.0-31.0); Mean Platelet Volume 7.1 fL (7.4-10.4); Platelet Count 395 thou/uL (130-400); RBC Distribution Width 15.9 % (11.5-14.5); Red Blood Cell (RBC) Count 2.86 mill/uL (4.70-6.10); White Blood Cell (WBC) Count 8.3 thou/uL (4.8-10.8)
[2020-03-20 08:11] LABS: ALT (SGPT) 8 U/L (8-55); AST (SGOT) 15 U/L (5-34); Albumin 3.6 g/dL (3.4-4.8); Alkaline Phosphatase 85 U/L (40-110); Anion Gap 17 mmol/L (10-20); BUN (Urea Nitrogen) 13 mg/dL (8.4-25.7); Bilirubin, Total 0.5 mg/dL (0.2-1.2); Calc. Creatinine Clearance 53 mL/min (70-130); Carbon Dioxide 22 mmol/L (23-31); Chloride 102 mmol/L (98-107); Globulin 2.7 g/dL (2.4-3.5); Glucose 140 mg/dL (83-110); Potassium 3.9 mmol/L (3.5-5.1); Protein, Total 6.3 g/dL (5.8-8.1); Sodium 137 mmol/L (136-145); Uric Acid 7.2 mg/dL (3.5-7.2)
[2020-03-20] MEDS: Amlodipine 10 MG TAB PO SCH (10:09)
[2020-03-20] MEDS: predniSONE 50 MG TAB PO SCH (10:09)
[2020-03-20] MEDS: Aspirin 81 mg Enteric Coated Tablet PO SCH (10:09)
[2020-03-20] MEDS: Allopurinol 100 MG TAB PO SCH (10:09)
[2020-03-20] MEDS: Losartan 25 MG TAB PO SCH (10:10)
[2020-03-20] MEDS: Pantoprazole 40 MG VIAL IVP SCH ×2 (10:10→20:37)
[2020-03-20] MEDS: Sulfameth/Trimethoprim DS 800-160mg TAB PO SCH (10:10)
--- NOTE | 2020-03-20 13:55 | PDOC.MOPN ---
Interval History: resting, per nurse, occ periods of agitation - Vital Signs Vital Signs: Vital Signs (12 hours) Temp Pulse Resp BP BP Pulse Ox 03/20/20 11:45 98.2 F 101 H 18 136/72 100 03/20/20 10:09 92 03/20/20 07:43 97.4 F L 92 16 135/73 100 03/20/20 04:00 98.1 F 102 H 20 152/80 H 97 Weight Admit Weight 123 lb 0.91 oz Weight 132 lb 0.91 oz - Physical Exam General: No acute distress Lungs: Clear to auscultation Cardiovascular: Regular rate Abdomen: Normal bowel sounds Neurological: Normal speech - Labs Result Diagrams: 03/20/20 07:23 03/20/20 07:23 Lab results: Laboratory Results - last 24 hr 03/20/20 07:23: WBC 8.3, RBC 2.86 L, Hgb 8.3 L, Hct 25.2 L, MCV 88.0, MCH 28.8, MCHC 32.7, RDW 15.9 H, Plt Count 395, MPV 7.1 L, Neutrophils % 80.8 H, Lymphocytes % 13.2 L, Monocytes % 5.7, Eosinophils % 0.2, Basophils % 0.1, Neutrophils # 6.7 H, Lymphocytes # 1.1 L, Monocytes # 0.5, Eosinophils # 0.0, Basophils # 0.0 03/20/20 07:23: Lactate Dehydrogenase 900 H 03/20/20 07:23: Sodium 137, Potassium 3.9, Chloride 102, Carbon Dioxide 22 L, Anion Gap 17, BUN 13, Creatinine 1.09, Estimated GFR (MDRD) 81, Glucose 140 H, Uric Acid 7.2, Calcium 9.0, Total Bilirubin 0.5, AST 15, ALT 8, Alkaline Phosphatase 85, Serum Total Protein 6.3, Albumin 3.6, Globulin 2.7, Albumin/Globulin Ratio 1.3 Status: lab reviewed by me A/P - Problem (1) GI bleed Current Visit: No Code(s): K92.2 - GASTROINTESTINAL HEMORRHAGE, UNSPECIFIED Status: Acute (2) Large cell (diffuse) non-Hodgkin's lymphoma Current Visit: No Code(s): C83.30 - DIFFUSE LARGE B-CELL LYMPHOMA, UNSPECIFIED SITE Status: Acute - Plan Plan: 1. C2D2 EPOCH-R, tolerating well. 2. continue xanax for agitation 3. neulasta after treatment.
[2020-03-20] MEDS: ETOPOSIDE IVPB SCH (16:56)
[2020-03-20] MEDS: SODIUM CHLORIDE 0.9% IVPB SCH ×2 (16:56)
[2020-03-20] MEDS: DOXORUBICIN IVPB SCH (16:56)
--- NOTE | 2020-03-20 17:38 | PDOC.HOSPP ---
- Subjective Encounter Date: 03/20/20 Encounter Time: 11:30 Subjective: pt up in bed drowsy but arousable. - Objective Vital Signs & Weight: Vital Signs (12 hours) Temp Pulse Resp BP BP Pulse Ox 03/20/20 15:48 98.0 F 94 18 133/63 100 03/20/20 11:45 98.2 F 101 H 18 136/72 100 03/20/20 10:09 92 03/20/20 07:43 97.4 F L 92 16 135/73 100 Weight Admit Weight 123 lb 0.91 oz Weight 132 lb 0.91 oz I&O: 03/19/20 03/20/20 03/21/20 06:59 06:59 06:59 Intake Total 430 1747 Output Total 250 250 Balance 180 1497 Result Diagrams: 03/20/20 07:23 03/20/20 07:23 Hospitalist ROS - Review of Systems Cardiovascular: denies: chest pain, palpitations, orthopnea, paroxysmal noc. dyspnea, edema, light headedness, other Gastrointestinal: denies: nausea, vomiting, abdominal pain, diarrhea, constipation, melena, hematochezia, other Genitourinary: denies: dysuria, frequency, incontinence, hematuria, retention, other - Medication Medications: Active Medications Generic Name Dose Route Start Last Admin Trade Name Freq PRN Reason Stop Dose Admin Acetaminophen 650 mg 03/15/20 23:35 03/19/20 11:45 Acetaminophen 325 Mg Tab PO 650 mg Q4H PRN Administration Headache/Fever/Mild Pain (1-3) Hydrocodone Bitart/Acetaminophen 1 tab 03/15/20 23:35 03/19/20 09:17 Hydrocodone/Acetaminophen 5/325 Mg Tablet PO 1 tab Q4H PRN Administration Moderate Pain (4-6) Allopurinol 100 mg 03/18/20 09:00 03/20/20 10:09 Allopurinol 100 Mg Tab PO Not Given DAILY BERNA Amlodipine Besylate 10 mg 03/18/20 09:00 03/20/20 10:09 Amlodipine 10 Mg Tab PO Not Given DAILY BERNA Aspirin 81 mg 03/20/20 09:00 03/20/20 10:09 Aspirin 81 Mg Enteric Coated Tablet PO Not Given DAILY BERNA Atorvastatin Calcium 20 mg 03/18/20 21:00 03/19/20 23:20 Atorvastatin Calcium 20 Mg Tab PO Not Given HS BERNA Etoposide 88 mg/ Sodium 504.4 mls @ 504.4 mls/hr 03/19/20 07:00 03/20/20 16:56 Chloride IVPB 03/22/20 23:00 504.4 mls WILLCALL BERNA Administration Vincristine Sulfate 0.7 mg/ 50.7 mls @ 0 mls/hr 03/19/20 07:00 03/20/20 16:39 Sodium Chloride IVPB 03/22/20 23:00 50.7 mls WILLCALL BERNA Administration As Directed Doxorubicin HCl 18 mg/ Sodium 59 mls @ 2.459 mls/hr 03/19/20 07:00 03/20/20 16:56 Chloride IVPB 03/22/20 23:00 59 mls WILLCALL BERNA Administration Lorazepam 1 mg 03/19/20 07:50 03/19/20 22:39 Lorazepam 2 Mg/Ml Vial SLOW IVP 1 mg Q6H PRN Administration AGITATION/RESTLESSNESS Losartan Potassium 50 mg 03/18/20 09:00 03/20/20 10:10 Losartan 25 Mg Tab PO Not Given DAILY BERNA Ondansetron HCl 4 mg 03/15/20 23:35 03/19/20 17:11 Ondansetron Pf 4 Mg/2 Ml Vial IVP 4 mg Q6H PRN Administration Nausea/Vomiting Pantoprazole Sodium 40 mg 03/17/20 21:00 03/20/20 10:10 Pantoprazole 40 Mg Vial IVP Not Given Q12HR BERNA Prednisone 100 mg 03/20/20 08:00 03/20/20 10:09 Prednisone 50 Mg Tab PO 03/23/20 08:01 Not Given QAM-WM BERNA Sodium Chloride 10 ml 03/15/20 23:35 03/19/20 21:56 Flush - Normal Saline 10 Ml Syringe IVF 10 ml PRN PRN Administration Saline Flush Trimethoprim/Sulfamethoxazole 1 tab 03/20/20 09:00 03/20/20 10:10 Sulfameth/Trimethoprim Ds 800-160mg Tab PO Not Given MWF BERNA - Exam Heart: negative: RRR, no murmur, no gallops, no rubs, normal peripheral pulses, irregular, diminshed peripheral pulses, murmur present, II/IV, III/IV Respiratory: negative: CTAB, no wheezes, no rales, no ronchi, normal chest expansion, no tachypnea, normal percussion, rales, rhonchi, tachypneic, wheezes Gastrointestinal: negative: soft, non-tender, non-distended, normal bowel sounds, no palpable masses, no hepatomegaly, no splenomegaly, no bruit, no guarding, no rigidity, tender to palpation, distended, diminished bowl sounds, voluntary guarding Extremities: negative: no cyanosis, no clubbing, no edema, 1+ LE edema, 2+ LE edema, clubbing Hosp A/P (1) GI bleed Code(s): K92.2 - GASTROINTESTINAL HEMORRHAGE, UNSPECIFIED Status: Acute (2) Large cell (diffuse) non-Hodgkin's lymphoma Code(s): C83.30 - DIFFUSE LARGE B-CELL LYMPHOMA, UNSPECIFIED SITE Status: Acute (3) CAD (coronary artery disease) Code(s): I25.10 - ATHSCL HEART DISEASE OF [place] CORONARY ARTERY W/O ANG PCTRS Status: Chronic (4) HTN (hypertension) Code(s): I10 - ESSENTIAL (PRIMARY) HYPERTENSION Status: Chronic (5) Mass of left side of neck Code(s): R22.1 - LOCALIZED SWELLING, MASS AND LUMP, NECK Status: Chronic (6) Peripheral vascular disease Code(s): I73.9 - PERIPHERAL VASCULAR DISEASE, UNSPECIFIED Status: Chronic - Plan Patient's H&H continues to be stable. He is not candidate for EGD given his large left-sided tumor. Patient is supposed to be on aspirin and Plavix given his lower extremity strengths and cardiac stent. 03/18 patient had a drug-eluting stent to his mid LAD on October 2019. Currently he is off aspirin and Plavix. Per recommendation he has to be on dual antiplatelet therapy at least for 6 months. However I spoke with cardiology who stated that he at least needs to be on aspirin which I will talk with GI and resume. We will transfer the patient to oncology for chemotherapy. H&H remain stable. 03/19 we will start patient on aspirin given her recent stent. We will advance patient's diet. We will continue to monitor patient. He is getting chemotherapy. 03/20 we will continue aspirin. Patient getting steroids. He apparently got very confused and required a sitter.
[2020-03-20] MEDS: Atorvastatin Calcium 20 MG TAB PO SCH (19:30)
[2020-03-20] MEDS: HYDROcodone/Acetaminophen 5/325 mg Tablet PO PRN (19:31)
[2020-03-21] MEDS: HYDROcodone/Acetaminophen 5/325 mg Tablet PO PRN ×6 (00:11→21:58)
[2020-03-21] MEDS: Bisacodyl 5 MG TAB PO PRN (05:42)
[2020-03-21 06:53] LABS: #Monocytes 0.5 thou/uL (0.11-0.59); #Neutrophils 7.4 thou/uL (1.40-6.50); %Eosinophils 0.2 % (0.0-10.0); %Lymphocytes 19.9 % (21.0-51.0); %Monocytes 5.1 % (0.0-10.0); %Neutrophils 74.7 % (42.0-75.0); Hemoglobin 8.2 g/dL (14.0-18.0); Mean Corpuscular HGB CONC 32.9 g/dL (32.0-36.0); Mean Corpuscular Hemoglobin 28.6 pg (27.0-31.0); Mean Corpuscular Volume 86.9 fL (78.0-98.0); Mean Platelet Volume 6.7 fL (7.4-10.4); Platelet Count 389 thou/uL (130-400); RBC Distribution Width 16.2 % (11.5-14.5); Red Blood Cell (RBC) Count 2.85 mill/uL (4.70-6.10); White Blood Cell (WBC) Count 9.9 thou/uL (4.8-10.8)
[2020-03-21 07:14] LABS: ALT (SGPT) 7 U/L (8-55); AST (SGOT) 14 U/L (5-34); Albumin 3.3 g/dL (3.4-4.8); Alkaline Phosphatase 71 U/L (40-110); Anion Gap 14 mmol/L (10-20); BUN (Urea Nitrogen) 12 mg/dL (8.4-25.7); Bilirubin, Total 0.4 mg/dL (0.2-1.2); Calc. Creatinine Clearance 68 mL/min (70-130); Calcium 8.7 mg/dL (7.8-10.44); Carbon Dioxide 22 mmol/L (23-31); Chloride 102 mmol/L (98-107); Globulin 2.4 g/dL (2.4-3.5); Glucose 90 mg/dL (83-110); Potassium 3.1 mmol/L (3.5-5.1); Protein, Total 5.7 g/dL (5.8-8.1); Sodium 135 mmol/L (136-145)
[2020-03-21] MEDS: predniSONE 50 MG TAB PO SCH (08:28)
[2020-03-21] MEDS: Aspirin 81 mg Enteric Coated Tablet PO SCH (08:29)
[2020-03-21] MEDS: Pantoprazole 40 MG VIAL IVP SCH ×2 (08:29→21:58)
[2020-03-21] MEDS: Amlodipine 10 MG TAB PO SCH (08:29)
[2020-03-21] MEDS: Losartan 25 MG TAB PO SCH (08:29)
[2020-03-21] MEDS: Allopurinol 100 MG TAB PO SCH (08:29)
--- NOTE | 2020-03-21 16:19 | PDOC.MOPN ---
Interval History: awake and alert today, doing well with chemo - Vital Signs Vital Signs: Vital Signs (12 hours) Temp Pulse Resp BP BP Pulse Ox 03/21/20 13:15 98.5 F 106 H 16 145/68 H 100 03/21/20 08:29 78 142/70 H 100 03/21/20 07:48 98.1 F 78 16 142/70 H 100 Weight Admit Weight 123 lb 0.91 oz Weight 132 lb 0.91 oz - Physical Exam General: Alert, Oriented x3, No acute distress HEENT: Other (left neck mass) Lungs: Clear to auscultation Cardiovascular: Regular rate Abdomen: Normal bowel sounds Neurological: Normal speech Psych/Mental Status: Mental status NL - Labs Result Diagrams: 03/21/20 06:43 03/21/20 06:43 Lab results: Laboratory Results - last 24 hr 03/21/20 06:43: WBC 9.9, RBC 2.85 L, Hgb 8.2 L, Hct 24.8 L, MCV 86.9, MCH 28.6, MCHC 32.9, RDW 16.2 H, Plt Count 389, MPV 6.7 L, Neutrophils % 74.7, Lymphocytes % 19.9 L, Monocytes % 5.1, Eosinophils % 0.2, Basophils % 0.0, Neutrophils # 7.4 H, Lymphocytes # 2.0, Monocytes # 0.5, Eosinophils # 0.0, Basophils # 0.0 03/21/20 06:43: Lactate Dehydrogenase 783 H 03/21/20 06:43: Sodium 135 L, Potassium 3.1 L, Chloride 102, Carbon Dioxide 22 L, Anion Gap 14, BUN 12, Creatinine 0.84, Estimated GFR (MDRD) Greater than 90, Glucose 90, Uric Acid 7.0, Calcium 8.7, Total Bilirubin 0.4, AST 14, ALT 7 L, Alkaline Phosphatase 71, Serum Total Protein 5.7 L, Albumin 3.3 L, Globulin 2.4, Albumin/Globulin Ratio 1.4 Status: lab reviewed by me A/P - Problem (1) GI bleed Current Visit: No Code(s): K92.2 - GASTROINTESTINAL HEMORRHAGE, UNSPECIFIED Status: Acute (2) Large cell (diffuse) non-Hodgkin's lymphoma Current Visit: No Code(s): C83.30 - DIFFUSE LARGE B-CELL LYMPHOMA, UNSPECIFIED SITE Status: Acute - Plan Plan: 1. C2D3 EPOCH-R, tolerating well. 2. continue xanax prn for agitation 3. neulasta after treatment. 4. discussed with Dr. Murillo.
[2020-03-21] MEDS: SODIUM CHLORIDE 0.9% IVPB SCH ×3 (19:45→20:58)
[2020-03-21] MEDS: ETOPOSIDE IVPB SCH (19:45)
[2020-03-21] MEDS: VINCRISTINE SULFATE IVPB SCH (20:58)
[2020-03-21] MEDS: DOXORUBICIN IVPB SCH (20:58)
[2020-03-21] MEDS: Atorvastatin Calcium 20 MG TAB PO SCH (21:58)
[2020-03-22] MEDS: Bisacodyl 5 MG TAB PO PRN (01:55)
[2020-03-22] MEDS: HYDROcodone/Acetaminophen 5/325 mg Tablet PO PRN ×3 (01:55→17:38)
[2020-03-22 06:36] LABS: #Monocytes 0.2 thou/uL (0.11-0.59); #Neutrophils 3.9 thou/uL (1.40-6.50); %Basophils 0.6 % (0.0-1.0); %Eosinophils 0.2 % (0.0-10.0); %Lymphocytes 19.3 % (21.0-51.0); %Monocytes 3.9 % (0.0-10.0); %Neutrophils 75.9 % (42.0-75.0); Hemoglobin 7.2 g/dL (14.0-18.0); Mean Corpuscular HGB CONC 33.7 g/dL (32.0-36.0); Mean Corpuscular Hemoglobin 29.1 pg (27.0-31.0); Mean Corpuscular Volume 86.5 fL (78.0-98.0); Mean Platelet Volume 6.8 fL (7.4-10.4); Platelet Count 330 thou/uL (130-400); RBC Distribution Width 15.7 % (11.5-14.5); Red Blood Cell (RBC) Count 2.46 mill/uL (4.70-6.10); White Blood Cell (WBC) Count 5.2 thou/uL (4.8-10.8)
[2020-03-22 06:58] LABS: ALT (SGPT) 7 U/L (8-55); AST (SGOT) 10 U/L (5-34); Albumin 3.1 g/dL (3.4-4.8); Alkaline Phosphatase 64 U/L (40-110); Anion Gap 13 mmol/L (10-20); BUN (Urea Nitrogen) 12 mg/dL (8.4-25.7); Bilirubin, Total 0.4 mg/dL (0.2-1.2); Calc. Creatinine Clearance 71 mL/min (70-130); Calcium 8.5 mg/dL (7.8-10.44); Carbon Dioxide 25 mmol/L (23-31); Chloride 103 mmol/L (98-107); Globulin 2.2 g/dL (2.4-3.5); Glucose 108 mg/dL (83-110); Potassium 3.6 mmol/L (3.5-5.1); Protein, Total 5.3 g/dL (5.8-8.1); Sodium 137 mmol/L (136-145); Uric Acid 6.2 mg/dL (3.5-7.2)
[2020-03-22] MEDS ORDERED: Electrolyte Replacement Protocol FS PRN (07:00)
[2020-03-22] MEDS: Sulfameth/Trimethoprim DS 800-160mg TAB PO SCH (08:45)
[2020-03-22] MEDS: Losartan 25 MG TAB PO SCH (08:46)
[2020-03-22] MEDS: Pantoprazole 40 MG VIAL IVP SCH ×2 (08:46→19:24)
[2020-03-22] MEDS: predniSONE 50 MG TAB PO SCH (08:46)
[2020-03-22] MEDS: Aspirin 81 mg Enteric Coated Tablet PO SCH (08:46)
[2020-03-22] MEDS: Amlodipine 10 MG TAB PO SCH (08:46)
[2020-03-22] MEDS: Allopurinol 100 MG TAB PO SCH (08:47)
--- NOTE | 2020-03-22 15:08 | PDOC.MOPN ---
Interval History: tolerating treatment with no side effects. Eating and drinking well. Last BM 5 days ago. - Vital Signs Vital Signs: Vital Signs (12 hours) Temp Pulse Resp BP BP Pulse Ox 03/22/20 12:00 98.5 F 89 18 115/59 L 99 03/22/20 08:46 90 115/58 L 99 03/22/20 08:43 99 03/22/20 08:00 98.6 F 90 16 115/58 L 99 03/22/20 04:00 98.2 F 95 16 130/69 100 Weight Admit Weight 123 lb 0.91 oz Weight 132 lb 0.91 oz - Physical Exam General: Alert, Oriented x3, No acute distress HEENT: Other (large left neck lesion) Lungs: Clear to auscultation Cardiovascular: Regular rate Abdomen: Normal bowel sounds Neurological: Normal speech - Labs Result Diagrams: 03/22/20 06:07 03/22/20 06:07 Lab results: Laboratory Results - last 24 hr 03/22/20 06:07: WBC 5.2, RBC 2.46 L, Hgb 7.2 L, Hct 21.3 L, MCV 86.5, MCH 29.1, MCHC 33.7, RDW 15.7 H, Plt Count 330, MPV 6.8 L, Neutrophils % 75.9 H, Lymphocytes % 19.3 L, Monocytes % 3.9, Eosinophils % 0.2, Basophils % 0.6, Neutrophils # 3.9, Lymphocytes # 1.0 L, Monocytes # 0.2, Eosinophils # 0.0, Basophils # 0.0 03/22/20 06:07: Lactate Dehydrogenase 674 H 03/22/20 06:07: Sodium 137, Potassium 3.6, Chloride 103, Carbon Dioxide 25, Anion Gap 13, BUN 12, Creatinine 0.81, Estimated GFR (MDRD) Greater than 90, Glucose 108, Uric Acid 6.2, Calcium 8.5, Total Bilirubin 0.4, AST 10, ALT 7 L, Alkaline Phosphatase 64, Serum Total Protein 5.3 L, Albumin 3.1 L, Globulin 2.2 L, Albumin/Globulin Ratio 1.4 Status: lab reviewed by me A/P - Problem (1) GI bleed Current Visit: No Code(s): K92.2 - GASTROINTESTINAL HEMORRHAGE, UNSPECIFIED Status: Acute (2) Large cell (diffuse) non-Hodgkin's lymphoma Current Visit: No Code(s): C83.30 - DIFFUSE LARGE B-CELL LYMPHOMA, UNSPECIFIED SITE Status: Acute - Plan Plan: 1. C2D4 chemo, tolerating well 2. Neulasta on Wednesday and can dc if stable 3. follow-up in clinic for lab.
[2020-03-22] MEDS ORDERED: Polyethylene Glycol 3350 17 GM Packet PO PRN (15:53)
[2020-03-22] MEDS: Atorvastatin Calcium 20 MG TAB PO SCH (19:24)
[2020-03-22] MEDS: SODIUM CHLORIDE 0.9% IVPB SCH (22:50)
[2020-03-22] MEDS: ETOPOSIDE IVPB SCH (22:50)
[2020-03-23] MEDS: SODIUM CHLORIDE 0.9% IVPB SCH ×2 (00:14)
[2020-03-23] MEDS: DOXORUBICIN IVPB SCH (00:14)
[2020-03-23] MEDS: VINCRISTINE SULFATE IVPB SCH (00:14)
[2020-03-23 04:41] LABS: #Lymphocytes 0.9 thou/uL (1.20-3.40); #Monocytes 0.1 thou/uL (0.11-0.59); #Neutrophils 5.8 thou/uL (1.40-6.50); %Basophils 0.1 % (0.0-1.0); %Eosinophils 0.1 % (0.0-10.0); %Lymphocytes 12.7 % (21.0-51.0); %Monocytes 1.2 % (0.0-10.0); Hemoglobin 7.2 g/dL (14.0-18.0); Mean Corpuscular HGB CONC 33.8 g/dL (32.0-36.0); Mean Corpuscular Hemoglobin 29.2 pg (27.0-31.0); Mean Corpuscular Volume 86.4 fL (78.0-98.0); Mean Platelet Volume 6.8 fL (7.4-10.4); Platelet Count 338 thou/uL (130-400); RBC Distribution Width 15.4 % (11.5-14.5); Red Blood Cell (RBC) Count 2.46 mill/uL (4.70-6.10); White Blood Cell (WBC) Count 6.7 thou/uL (4.8-10.8)
[2020-03-23 04:58] LABS: ALT (SGPT) Less than 7 U/L (8-55); AST (SGOT) 10 U/L (5-34); Albumin 3.3 g/dL (3.4-4.8); Alkaline Phosphatase 65 U/L (40-110); Anion Gap 12 mmol/L (10-20); BUN (Urea Nitrogen) 11 mg/dL (8.4-25.7); Bilirubin, Total 0.4 mg/dL (0.2-1.2); Calc. Creatinine Clearance 75 mL/min (70-130); Calcium 8.8 mg/dL (7.8-10.44); Carbon Dioxide 25 mmol/L (23-31); Chloride 102 mmol/L (98-107); Globulin 2.3 g/dL (2.4-3.5); Glucose 120 mg/dL (83-110); Potassium 3.2 mmol/L (3.5-5.1); Protein, Total 5.6 g/dL (5.8-8.1); Sodium 136 mmol/L (136-145); Uric Acid 4.9 mg/dL (3.5-7.2)
[2020-03-23] MEDS ORDERED: Potassium Chloride 20 MEQ TAB PO SCH ×2 (06:30→08:30)
[2020-03-23] MEDS ORDERED: SODIUM CHLORIDE 0.9% IVPB SCH (07:00)
[2020-03-23] MEDS ORDERED: CYCLOPHOSPHAMIDE IVPB SCH (07:00)
[2020-03-23] MEDS ORDERED: PALONOSETRON HCL 0.05 MG/ML 5 ML VIAL IVP SCH (07:00)
[2020-03-23] MEDS: Amlodipine 10 MG TAB PO SCH (09:11)
[2020-03-23] MEDS: predniSONE 50 MG TAB PO SCH (09:11)
[2020-03-23] MEDS: Allopurinol 100 MG TAB PO SCH (09:11)
[2020-03-23] MEDS: Aspirin 81 mg Enteric Coated Tablet PO SCH (09:12)
[2020-03-23] MEDS: Losartan 25 MG TAB PO SCH (09:12)
[2020-03-23] MEDS: HYDROcodone/Acetaminophen 5/325 mg Tablet PO PRN (09:13)
[2020-03-23] MEDS: Pantoprazole 40 MG VIAL IVP SCH ×2 (09:13→19:49)
[2020-03-23] MEDS: Atorvastatin Calcium 20 MG TAB PO SCH (19:49)
[2020-03-24] MEDS: HYDROcodone/Acetaminophen 5/325 mg Tablet PO PRN ×2 (05:46→13:13)
[2020-03-24 05:50] LABS: #Lymphocytes 0.9 thou/uL (1.20-3.40); %Basophils 0.9 % (0.0-1.0); %Eosinophils 0.1 % (0.0-10.0); %Lymphocytes 18.2 % (21.0-51.0); %Monocytes 0.5 % (0.0-10.0); %Neutrophils 80.3 % (42.0-75.0); Mean Corpuscular HGB CONC 33.5 g/dL (32.0-36.0); Mean Corpuscular Hemoglobin 28.9 pg (27.0-31.0); Mean Corpuscular Volume 86.1 fL (78.0-98.0); Platelet Count 328 thou/uL (130-400); RBC Distribution Width 15.4 % (11.5-14.5); Red Blood Cell (RBC) Count 2.44 mill/uL (4.70-6.10)
[2020-03-24 06:13] LABS: ALT (SGPT) Less than 7 U/L (8-55); AST (SGOT) 8 U/L (5-34); Albumin 3.3 g/dL (3.4-4.8); Alkaline Phosphatase 57 U/L (40-110); Anion Gap 13 mmol/L (10-20); BUN (Urea Nitrogen) 14 mg/dL (8.4-25.7); Bilirubin, Total 0.5 mg/dL (0.2-1.2); Calc. Creatinine Clearance 79 mL/min (70-130); Calcium 8.8 mg/dL (7.8-10.44); Carbon Dioxide 25 mmol/L (23-31); Chloride 100 mmol/L (98-107); Globulin 2.2 g/dL (2.4-3.5); Glucose 97 mg/dL (83-110); Potassium 3.2 mmol/L (3.5-5.1); Protein, Total 5.5 g/dL (5.8-8.1); Sodium 135 mmol/L (136-145); Uric Acid 4.5 mg/dL (3.5-7.2)
[2020-03-24] MEDS ORDERED: Potassium Chloride 20 MEQ TAB PO SCH ×3 (06:45→17:00)
[2020-03-24] MEDS ORDERED: PEGFILGRASTIM-JMDB 6 MG/0.6 ML SYRINGE SQ SCH (07:00)
[2020-03-24 09:43] VITALS: BP 127/60; TEMP 98.6
[2020-03-24] MEDS: Allopurinol 100 MG TAB PO SCH (09:45)
[2020-03-24] MEDS: Losartan 25 MG TAB PO SCH (09:46)
[2020-03-24] MEDS: Pantoprazole 40 MG VIAL IVP SCH (09:46)
[2020-03-24] MEDS: Aspirin 81 mg Enteric Coated Tablet PO SCH (09:46)
[2020-03-24] MEDS: Amlodipine 10 MG TAB PO SCH (09:46)
--- NOTE | 2020-03-24 12:06 | PDOC.MOPN ---
Interval History: pain is stable. he is having some hallucinations but he ia aware of them and is lucid currently. - Vital Signs Vital Signs: Vital Signs (12 hours) Temp Pulse Resp BP Pulse Ox 03/24/20 09:46 87 03/24/20 08:00 98.6 F 87 18 127/60 100 03/24/20 04:00 98.3 F 88 16 156/72 H 100 Weight Admit Weight 123 lb 0.91 oz Weight 132 lb 0.91 oz - Physical Exam General: Alert HEENT: Other (largeL cervical/neck mass) Lungs: Clear to auscultation Abdomen: Normal bowel sounds Neurological: Normal speech - Labs Result Diagrams: 03/24/20 05:40 03/24/20 05:40 Lab results: Laboratory Results - last 24 hr 03/24/20 05:40: WBC 5.0, RBC 2.44 L, Hgb 7.0 L, Hct 21.0 L, MCV 86.1, MCH 28.9, MCHC 33.5, RDW 15.4 H, Plt Count 328, MPV 7.0 L, Neutrophils % 80.3 H, Lymphocytes % 18.2 L, Monocytes % 0.5, Eosinophils % 0.1, Basophils % 0.9, Neutrophils # 4.0, Lymphocytes # 0.9 L, Monocytes # 0.0 L, Eosinophils # 0.0, Basophils # 0.0 03/24/20 05:40: Lactate Dehydrogenase 608 H 03/24/20 05:40: Sodium 135 L, Potassium 3.2 L, Chloride 100, Carbon Dioxide 25, Anion Gap 13, BUN 14, Creatinine 0.73, Estimated GFR (MDRD) Greater than 90, Glucose 97, Uric Acid 4.5, Calcium 8.8, Total Bilirubin 0.5, AST 8, ALT Less than 7 L, Alkaline Phosphatase 57, Serum Total Protein 5.5 L, Albumin 3.3 L, Globulin 2.2 L, Albumin/Globulin Ratio 1.5 A/P - Problem (1) GI bleed Current Visit: No Code(s): K92.2 - GASTROINTESTINAL HEMORRHAGE, UNSPECIFIED Status: Acute (2) Large cell (diffuse) non-Hodgkin's lymphoma Current Visit: No Code(s): C83.30 - DIFFUSE LARGE B-CELL LYMPHOMA, UNSPECIFIED SITE Status: Acute (3) Lightheaded Current Visit: No Code(s): R42 - DIZZINESS AND GIDDINESS Status: Acute (4) Sudden visual loss, left eye Current Visit: No Code(s): H53.132 - SUDDEN VISUAL LOSS, LEFT EYE Status: Acute (5) CLL (chronic lymphocytic leukemia) Current Visit: No Code(s): C91.10 - CHRONIC LYMPHOCYTIC LEUK OF B-CELL TYPE NO T ACHIEVE REMIS Status: Chronic (6) HTN (hypertension) Current Visit: No Code(s): I10 - ESSENTIAL (PRIMARY) HYPERTENSION Status: Chronic (7) Mass of left side of neck Current Visit: No Code(s): R22.1 - LOCALIZED SWELLING, MASS AND LUMP, NECK Status: Chronic - Plan Plan: 1. fulphila today 2, home when psychosocial issues addressed 3. we had a long discussion and I also discussed with his daughter the issues. His mass is growing through treatment. This is rare and lifethreatening and he and his daughter are aware. We discuss 2 options. His SCT MD in [place] has an option of CAR-T treatment but the patient is not sure he can get to [place]. The only other option is home with hospice. He and his daughter are going to discuss this today. 4. f/u in clinic depending on above decision making
[2020-03-24] MEDS: Lorazepam 2 MG/ML VIAL SLOW IVP PRN (13:13)
--- NOTE | 2020-03-24 16:06 | PDOC.HOSPP ---
- Subjective Encounter Date: 03/23/20 Encounter Time: 17:00 Subjective: pt up in bed no complains - Objective Vital Signs & Weight: Vital Signs (12 hours) Temp Pulse Resp BP Pulse Ox 03/24/20 09:46 87 03/24/20 08:00 98.6 F 87 18 127/60 100 Weight Admit Weight 123 lb 0.91 oz Weight 132 lb 0.91 oz I&O: 03/23/20 03/24/20 03/25/20 06:59 06:59 06:59 Intake Total 1050 1290 Output Total 975 1350 Balance 75 -60 Result Diagrams: 03/24/20 05:40 03/24/20 05:40 Hospitalist ROS - Review of Systems Respiratory: denies: cough, dry, shortness of breath, hemoptysis, SOB with excertion, pleuritic pain, sputum, wheezing, other Cardiovascular: denies: chest pain, palpitations, orthopnea, paroxysmal noc. dyspnea, edema, light headedness, other Gastrointestinal: denies: nausea, vomiting, abdominal pain, diarrhea, constipation, melena, hematochezia, other - Medication Medications: Active Medications Generic Name Dose Route Start Last Admin Trade Name Freq PRN Reason Stop Dose Admin Acetaminophen 650 mg 03/15/20 23:35 03/19/20 11:45 Acetaminophen 325 Mg Tab PO 650 mg Q4H PRN Administration Headache/Fever/Mild Pain (1-3) Hydrocodone Bitart/Acetaminophen 1 tab 03/15/20 23:35 03/24/20 13:13 Hydrocodone/Acetaminophen 5/325 Mg Tablet PO 1 tab Q4H PRN Administration Moderate Pain (4-6) Allopurinol 100 mg 03/18/20 09:00 03/24/20 09:45 Allopurinol 100 Mg Tab PO 100 mg DAILY BERNA Administration Amlodipine Besylate 10 mg 03/18/20 09:00 03/24/20 09:46 Amlodipine 10 Mg Tab PO 10 mg DAILY BERNA Administration Aspirin 81 mg 03/20/20 09:00 03/24/20 09:46 Aspirin 81 Mg Enteric Coated Tablet PO 81 mg DAILY BERNA Administration Atorvastatin Calcium 20 mg 03/18/20 21:00 03/23/20 19:49 Atorvastatin Calcium 20 Mg Tab PO 20 mg HS BERNA Administration Bisacodyl 10 mg 03/21/20 01:15 03/22/20 01:55 Bisacodyl 5 Mg Tab PO 10 mg DAILYPRN PRN Administration Constipation Lorazepam 1 mg 03/19/20 07:50 03/24/20 13:13 Lorazepam 2 Mg/Ml Vial SLOW IVP 1 mg Q6H PRN Administration AGITATION/RESTLESSNESS Losartan Potassium 50 mg 03/18/20 09:00 03/24/20 09:46 Losartan 25 Mg Tab PO 50 mg DAILY BERNA Administration Ondansetron HCl 4 mg 03/15/20 23:35 03/19/20 17:11 Ondansetron Pf 4 Mg/2 Ml Vial IVP 4 mg Q6H PRN Administration Nausea/Vomiting Palonosetron 0.25 mg 03/23/20 07:00 03/24/20 00:01 Palonosetron Hcl 0.05 Mg/Ml 5 Ml Vial IVP 0.25 mg WILLCALL BERNA Administration Pantoprazole Sodium 40 mg 03/17/20 21:00 03/24/20 09:46 Pantoprazole 40 Mg Vial IVP 40 mg Q12HR BERNA Administration Polyethylene Glycol 17 gm 03/22/20 15:53 03/22/20 19:24 Polyethylene Glycol 3350 17 Gm Packet PO 17 gm DAILYPRN PRN Administration Constipation Sodium Chloride 10 ml 03/15/20 23:35 03/20/20 20:37 Flush - Normal Saline 10 Ml Syringe IVF 10 ml PRN PRN Administration Saline Flush Trimethoprim/Sulfamethoxazole 1 tab 03/20/20 09:00 03/22/20 08:45 Sulfameth/Trimethoprim Ds 800-160mg Tab PO 1 tab MWF BERNA Administration - Exam Neck: negative: supple, symmetric, no JVD, no thyromegaly, no lymphadenopathy, no carotid bruit, JVD Heart: negative: RRR, no murmur, no gallops, no rubs, normal peripheral pulses, irregular, diminshed peripheral pulses, murmur present, II/IV, III/IV Respiratory: negative: CTAB, no wheezes, no rales, no ronchi, normal chest expansion, no tachypnea, normal percussion, rales, rhonchi, tachypneic, wheezes Gastrointestinal: negative: soft, non-tender, non-distended, normal bowel sounds, no palpable masses, no hepatomegaly, no splenomegaly, no bruit, no guarding, no rigidity, tender to palpation, distended, diminished bowl sounds, voluntary guarding Hosp A/P (1) GI bleed Code(s): K92.2 - GASTROINTESTINAL HEMORRHAGE, UNSPECIFIED Status: Acute (2) Large cell (diffuse) non-Hodgkin's lymphoma Code(s): C83.30 - DIFFUSE LARGE B-CELL LYMPHOMA, UNSPECIFIED SITE Status: Acute (3) CAD (coronary artery disease) Code(s): I25.10 - ATHSCL HEART DISEASE OF [place] CORONARY ARTERY W/O ANG PCTRS Status: Chronic (4) HTN (hypertension) Code(s): I10 - ESSENTIAL (PRIMARY) HYPERTENSION Status: Chronic (5) Mass of left side of neck Code(s): R22.1 - LOCALIZED SWELLING, MASS AND LUMP, NECK Status: Chronic (6) Peripheral vascular disease Code(s): I73.9 - PERIPHERAL VASCULAR DISEASE, UNSPECIFIED Status: Chronic - Plan Patient's H&H continues to be stable. He is not candidate for EGD given his large left-sided tumor. Patient is supposed to be on aspirin and Plavix given his lower extremity strengths and cardiac stent. 03/18 patient had a drug-eluting stent to his mid LAD on October 2019. Currently he is off aspirin and Plavix. Per recommendation he has to be on dual antiplatelet therapy at least for 6 months. However I spoke with cardiology who stated that he at least needs to be on aspirin which I will talk with GI and resume. We will transfer the patient to oncology for chemotherapy. H&H remain stable. 03/19 we will start patient on aspirin given her recent stent. We will advance patient's diet. We will continue to monitor patient. He is getting chemotherapy. 03/20 we will continue aspirin. Patient getting steroids. He apparently got very confused and required a sitter. 03/21 we will continue aspirin. Patient currently getting chemotherapy. 03/22 we will continue aspirin will check H&H. pt getting chemo. 03/23 will continue aspirin and will check hh. pt's tumor getting larger.
--- NOTE | 2020-03-24 16:13 | PDOC.HOSPP ---
- Subjective Encounter Date: 03/22/20 Encounter Time: 12:00 Subjective: pt confused - Objective Vital Signs & Weight: Vital Signs (12 hours) Temp Pulse Resp BP Pulse Ox 03/24/20 09:46 87 03/24/20 08:00 98.6 F 87 18 127/60 100 Weight Admit Weight 123 lb 0.91 oz Weight 132 lb 0.91 oz I&O: 03/23/20 03/24/20 03/25/20 06:59 06:59 06:59 Intake Total 1050 1290 Output Total 975 1350 Balance 75 -60 Result Diagrams: 03/24/20 05:40 03/24/20 05:40 Hospitalist ROS - Medication Medications: Active Medications Generic Name Dose Route Start Last Admin Trade Name Freq PRN Reason Stop Dose Admin Acetaminophen 650 mg 03/15/20 23:35 03/19/20 11:45 Acetaminophen 325 Mg Tab PO 650 mg Q4H PRN Administration Headache/Fever/Mild Pain (1-3) Hydrocodone Bitart/Acetaminophen 1 tab 03/15/20 23:35 03/24/20 13:13 Hydrocodone/Acetaminophen 5/325 Mg Tablet PO 1 tab Q4H PRN Administration Moderate Pain (4-6) Allopurinol 100 mg 03/18/20 09:00 03/24/20 09:45 Allopurinol 100 Mg Tab PO 100 mg DAILY BERNA Administration Amlodipine Besylate 10 mg 03/18/20 09:00 03/24/20 09:46 Amlodipine 10 Mg Tab PO 10 mg DAILY BERNA Administration Aspirin 81 mg 03/20/20 09:00 03/24/20 09:46 Aspirin 81 Mg Enteric Coated Tablet PO 81 mg DAILY BERNA Administration Atorvastatin Calcium 20 mg 03/18/20 21:00 03/23/20 19:49 Atorvastatin Calcium 20 Mg Tab PO 20 mg HS BERNA Administration Bisacodyl 10 mg 03/21/20 01:15 03/22/20 01:55 Bisacodyl 5 Mg Tab PO 10 mg DAILYPRN PRN Administration Constipation Lorazepam 1 mg 03/19/20 07:50 03/24/20 13:13 Lorazepam 2 Mg/Ml Vial SLOW IVP 1 mg Q6H PRN Administration AGITATION/RESTLESSNESS Losartan Potassium 50 mg 03/18/20 09:00 03/24/20 09:46 Losartan 25 Mg Tab PO 50 mg DAILY BERNA Administration Ondansetron HCl 4 mg 03/15/20 23:35 03/19/20 17:11 Ondansetron Pf 4 Mg/2 Ml Vial IVP 4 mg Q6H PRN Administration Nausea/Vomiting Palonosetron 0.25 mg 03/23/20 07:00 03/24/20 00:01 Palonosetron Hcl 0.05 Mg/Ml 5 Ml Vial IVP 0.25 mg WILLCALL BERNA Administration Pantoprazole Sodium 40 mg 03/17/20 21:00 03/24/20 09:46 Pantoprazole 40 Mg Vial IVP 40 mg Q12HR BERNA Administration Polyethylene Glycol 17 gm 03/22/20 15:53 03/22/20 19:24 Polyethylene Glycol 3350 17 Gm Packet PO 17 gm DAILYPRN PRN Administration Constipation Sodium Chloride 10 ml 03/15/20 23:35 03/20/20 20:37 Flush - Normal Saline 10 Ml Syringe IVF 10 ml PRN PRN Administration Saline Flush Trimethoprim/Sulfamethoxazole 1 tab 03/20/20 09:00 03/22/20 08:45 Sulfameth/Trimethoprim Ds 800-160mg Tab PO 1 tab MWF BERNA Administration - Exam ENT - other findings: neck mass appears larger Neck: negative: supple, symmetric, no JVD, no thyromegaly, no lymphadenopathy, no carotid bruit, JVD Heart: negative: RRR, no murmur, no gallops, no rubs, normal peripheral pulses, irregular, diminshed peripheral pulses, murmur present, II/IV, III/IV Respiratory: negative: CTAB, no wheezes, no rales, no ronchi, normal chest expansion, no tachypnea, normal percussion, rales, rhonchi, tachypneic, wheezes Gastrointestinal: negative: soft, non-tender, non-distended, normal bowel sounds, no palpable masses, no hepatomegaly, no splenomegaly, no bruit, no guarding, no rigidity, tender to palpation, distended, diminished bowl sounds, voluntary guarding Hosp A/P (1) GI bleed Code(s): K92.2 - GASTROINTESTINAL HEMORRHAGE, UNSPECIFIED Status: Acute (2) Large cell (diffuse) non-Hodgkin's lymphoma Code(s): C83.30 - DIFFUSE LARGE B-CELL LYMPHOMA, UNSPECIFIED SITE Status: Acute (3) CAD (coronary artery disease) Code(s): I25.10 - ATHSCL HEART DISEASE OF [place] CORONARY ARTERY W/O ANG PCTRS Status: Chronic (4) HTN (hypertension) Code(s): I10 - ESSENTIAL (PRIMARY) HYPERTENSION Status: Chronic (5) Mass of left side of neck Code(s): R22.1 - LOCALIZED SWELLING, MASS AND LUMP, NECK Status: Chronic (6) Peripheral vascular disease Code(s): I73.9 - PERIPHERAL VASCULAR DISEASE, UNSPECIFIED Status: Chronic - Plan Patient's H&H continues to be stable. He is not candidate for EGD given his large left-sided tumor. Patient is supposed to be on aspirin and Plavix given his lower extremity strengths and cardiac stent. 03/18 patient had a drug-eluting stent to his mid LAD on October 2019. Currently he is off aspirin and Plavix. Per recommendation he has to be on dual antiplatelet therapy at least for 6 months. However I spoke with cardiology who stated that he at least needs to be on aspirin which I will talk with GI and resume. We will transfer the patient to oncology for chemotherapy. H&H remain stable. 03/19 we will start patient on aspirin given her recent stent. We will advance patient's diet. We will continue to monitor patient. He is getting lucero motherapy. 03/20 we will continue aspirin. Patient getting steroids. He apparently got very confused and required a sitter. 03/21 we will continue aspirin. Patient currently getting chemotherapy. 03/22 we will continue aspirin will check H&H. pt getting chemo.
--- NOTE | 2020-03-24 16:20 | PDOC.HOSPP ---
- Subjective Encounter Date: 03/24/20 Encounter Time: 12:30 Subjective: pt up in bed no complains. - Objective Vital Signs & Weight: Vital Signs (12 hours) Temp Pulse Resp BP Pulse Ox 03/24/20 09:46 87 03/24/20 08:00 98.6 F 87 18 127/60 100 Weight Admit Weight 123 lb 0.91 oz Weight 132 lb 0.91 oz I&O: 03/23/20 03/24/20 03/25/20 06:59 06:59 06:59 Intake Total 1050 1290 Output Total 975 1350 Balance 75 -60 Result Diagrams: 03/24/20 05:40 03/24/20 05:40 Hospitalist ROS - Review of Systems Cardiovascular: denies: chest pain, palpitations, orthopnea, paroxysmal noc. dyspnea, edema, light headedness, other Gastrointestinal: denies: nausea, vomiting, abdominal pain, diarrhea, constipation, melena, hematochezia, other Genitourinary: denies: dysuria, frequency, incontinence, hematuria, retention, other - Medication Medications: Active Medications Generic Name Dose Route Start Last Admin Trade Name Freq PRN Reason Stop Dose Admin Acetaminophen 650 mg 03/15/20 23:35 03/19/20 11:45 Acetaminophen 325 Mg Tab PO 650 mg Q4H PRN Administration Headache/Fever/Mild Pain (1-3) Hydrocodone Bitart/Acetaminophen 1 tab 03/15/20 23:35 03/24/20 13:13 Hydrocodone/Acetaminophen 5/325 Mg Tablet PO 1 tab Q4H PRN Administration Moderate Pain (4-6) Allopurinol 100 mg 03/18/20 09:00 03/24/20 09:45 Allopurinol 100 Mg Tab PO 100 mg DAILY BERNA Administration Amlodipine Besylate 10 mg 03/18/20 09:00 03/24/20 09:46 Amlodipine 10 Mg Tab PO 10 mg DAILY BERNA Administration Aspirin 81 mg 03/20/20 09:00 03/24/20 09:46 Aspirin 81 Mg Enteric Coated Tablet PO 81 mg DAILY BERNA Administration Atorvastatin Calcium 20 mg 03/18/20 21:00 03/23/20 19:49 Atorvastatin Calcium 20 Mg Tab PO 20 mg HS BERNA Administration Bisacodyl 10 mg 03/21/20 01:15 03/22/20 01:55 Bisacodyl 5 Mg Tab PO 10 mg DAILYPRN PRN Administration Constipation Lorazepam 1 mg 03/19/20 07:50 03/24/20 13:13 Lorazepam 2 Mg/Ml Vial SLOW IVP 1 mg Q6H PRN Administration AGITATION/RESTLESSNESS Losartan Potassium 50 mg 03/18/20 09:00 03/24/20 09:46 Losartan 25 Mg Tab PO 50 mg DAILY BERNA Administration Ondansetron HCl 4 mg 03/15/20 23:35 03/19/20 17:11 Ondansetron Pf 4 Mg/2 Ml Vial IVP 4 mg Q6H PRN Administration Nausea/Vomiting Palonosetron 0.25 mg 03/23/20 07:00 03/24/20 00:01 Palonosetron Hcl 0.05 Mg/Ml 5 Ml Vial IVP 0.25 mg WILLCALL BERNA Administration Pantoprazole Sodium 40 mg 03/17/20 21:00 03/24/20 09:46 Pantoprazole 40 Mg Vial IVP 40 mg Q12HR BERNA Administration Polyethylene Glycol 17 gm 03/22/20 15:53 03/22/20 19:24 Polyethylene Glycol 3350 17 Gm Packet PO 17 gm DAILYPRN PRN Administration Constipation Sodium Chloride 10 ml 03/15/20 23:35 03/20/20 20:37 Flush - Normal Saline 10 Ml Syringe IVF 10 ml PRN PRN Administration Saline Flush Trimethoprim/Sulfamethoxazole 1 tab 03/20/20 09:00 03/22/20 08:45 Sulfameth/Trimethoprim Ds 800-160mg Tab PO 1 tab MWF BERNA Administration - Exam Neck: negative: supple, symmetric, no JVD, no thyromegaly, no lymphadenopathy, no carotid bruit, JVD Heart: negative: RRR, no murmur, no gallops, no rubs, normal peripheral pulses, irregular, diminshed peripheral pulses, murmur present, II/IV, III/IV Respiratory: negative: CTAB, no wheezes, no rales, no ronchi, normal chest expansion, no tachypnea, normal percussion, rales, rhonchi, tachypneic, wheezes Hosp A/P (1) GI bleed Code(s): K92.2 - GASTROINTESTINAL HEMORRHAGE, UNSPECIFIED Status: Acute (2) Large cell (diffuse) non-Hodgkin's lymphoma Code(s): C83.30 - DIFFUSE LARGE B-CELL LYMPHOMA, UNSPECIFIED SITE Status: Ac [place] (3) CAD (coronary artery disease) Code(s): I25.10 - ATHSCL HEART DISEASE OF [place] CORONARY ARTERY W/O ANG PCTRS Status: Chronic (4) HTN (hypertension) Code(s): I10 - ESSENTIAL (PRIMARY) HYPERTENSION Status: Chronic (5) Mass of left side of neck Code(s): R22.1 - LOCALIZED SWELLING, MASS AND LUMP, NECK Status: Chronic (6) Peripheral vascular disease Code(s): I73.9 - PERIPHERAL VASCULAR DISEASE, UNSPECIFIED Status: Chronic - Plan Patient's H&H continues to be stable. He is not candidate for EGD given his large left-sided tumor. Patient is supposed to be on aspirin and Plavix given his lower extremity strengths and cardiac stent. 03/18 patient had a drug-eluting stent to his mid LAD on October 2019. Currently he is off aspirin and Plavix. Per recommendation he has to be on dual an tiplatelet therapy at least for 6 months. However I spoke with cardiology who stated that he at least needs to be on aspirin which I will talk with GI and resume. We will transfer the patient to oncology for chemotherapy. H&H remain stable. 03/19 we will start patient on aspirin given her recent stent. We will advance patient's diet. We will continue to monitor patient. He is getting chemothe rapy. 03/20 we will continue aspirin. Patient getting steroids. He apparently got very confused and required a sitter. 03/21 we will continue aspirin. Patient currently getting chemotherapy. 03/22 we will continue aspirin will check H&H. pt getting chemo. 03/23 will continue aspirin and will check hh. pt's tumor getting larger. 03/24 we will continue aspirin. Will check patient's H&H. I did speak with the patient's daughter in regards to patient's overall poor prognosis and worsening tumor which is a concern for compressing his airway. She states that she will talk with the patient in regards to full CODE STATUS. Palliative care has been consulted.
--- NOTE | 2020-03-26 23:13 | PQF ---
CLINICAL DOCUMENTATION CLARIFICATION FORM: Dear : Angelica Allen Date / Time: 03/26/20 4016 Please exercise your independent, professional judgment in responding to the clarification form. Clinical indicators are provided on the bottom of this form for your review In your clinical opinion based on clinical findings below, can you please identify the etiology of GI bleeding if due to: Please check appropriate box(es): [ ] Gastric Ulcer [ ] B Cell Lymphoma on Neck [ x ] Other diagnosis, please specify ___most likely from gastric ulcers since pt has a hx but no EGD due to high risk of respiratory distress [ ] Unable to determine Physician Signature: Date/Time: For continuity of documentation, please document condition throughout progress notes and discharge summary. Thank You. To be completed by CDI/Coding staff for physician review: Present Clinical Indicators - Signs / Symptoms / Labs Results and Location in Medical Record [x] RBC 3.21, Hct 28.1, Hgb 9.4 Laboratory 03/15 [x] BP 174/73, Pulse 110, Resp 84, Temp 97.8 Vital signs 03/15 [x] Presented with an episode of Hematemesis H&P p1 03/15 Dr Shultz [x] Does have history of Gastric Ulcers and does have a history of GI Bleed H&P p1 03/15 Dr Shultz [x] GI bleeding presenting with hematemeisis and melena. Has history of Peptic ulcer with pyloric stenosis Consult Dr Atkinson 03/17 [x] GI bleed recently on ASA/Plavix with large neck mass Consult 03/16 Present Risk Factors Results and Location in Medical Record [x] 70 year-old male H&P p1 03/15 Dr Shultz [x] B Cell Lymphoma on Neck H&P p1 03/15 Dr Shultz [x] Hx of PUD H&P p1 03/15 Dr Shultz [x] Acute blood loss anemia Consult Dr Atkinson 03/17 Present Treatments Results and Location in Medical Record [x] IV Vincristine Sulfate 0.7 mg MAY 13 [x] IV Rituximab 500 mg MAY 13 [x] IVF NS 1L MAY 13 [x] IV Protonix 40 mg MAY 13 [x] IV Zofron 4 mg MAY 13 [x] GI consult Consult Dr Atkinson 03/17 [x] Oncology consult Consult Dr Hanks 03/17 [x] Hold Aspirin and Plavix Consult 03/16 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
== END 2020-03-24 18:15 | disposition home or self-care (01) | DRG 378 ==
LOC: ERS 19:40 → 2NO 23:30 → ONC 03-18 16:06
PROVIDERS: ADMIT Internal Medicine; ATTEND Internal Medicine
DX: K25.4 Chronic or unspecified gastric ulcer with hemorrhage (principal); E44.0 Moderate protein-calorie malnutrition; Z68.1 Body mass index [BMI] 19.9 or less, adult; D62 Acute posthemorrhagic anemia; C83.31 Diffuse large B-cell lymphoma, lymph nodes of head, face, and neck; H53.132 Sudden visual loss, left eye; K92.1 Melena; Z20.822 Contact with and (suspected) exposure to COVID-19; I25.10 Atherosclerotic heart disease of native coronary artery without angina pectoris; I10 Essential (primary) hypertension; I73.9 Peripheral vascular disease, unspecified; R13.10 Dysphagia, unspecified; R42 Dizziness and giddiness; Z28.21 Immunization not carried out because of patient refusal; Z95.5 Presence of coronary angioplasty implant and graft; Z85.51 Personal history of malignant neoplasm of bladder; Z98.42 Cataract extraction status, left eye; Z87.11 Personal history of peptic ulcer disease; Z90.49 Acquired absence of other specified parts of digestive tract; Z79.899 Other long term (current) drug therapy; Z79.82 Long term (current) use of aspirin; Z79.02 Long term (current) use of antithrombotics/antiplatelets
CPT/HCPCS: 36415; 70491; 71260; 74177; 80048; 80053; 83615; 84484; 84550; 85018; 85025; 86850; 86900; 86901; 87635; 93005; 96365; 96375; C9113; J0696; J1100; J1200; J2060; J2270; J2405; J2469; J3490; J7030; J7050; J7512; J9000; J9070; J9181; J9370; Q5108; Q5115; Q9967; S0028; U0003